=== PATIENT | female | born 1995 | race Caucasian/White ===

== ENCOUNTER 2023-05-25 15:50 | Outpatient (OUT) | payer BC, SELFPAY ==
[2023-05-25 16:24] LABS: Basophils Percent Auto 0.6 % (0.2-2.0); Eosinophils Absolute Auto 0.1 10^3/uL (0.0-0.7); Hematocrit 40.1 % (36.0-48.0); Hemoglobin 13.4 g/dL (12.0-16.0); Immature Granulocytes Abs Auto 0.02 10^3/uL (0.00-0.03); Immature Granulocytes Pct Auto 0.3 % (0.0-0.5); Lymphocytes Absolute Auto 2.1 10^3/uL (1.2-3.8); Lymphocytes Percent Auto 30.1 % (20.5-60.0); Mean Corpuscular HGB Conc 33.4 g/dL (29.9-35.2); Mean Corpuscular Hemoglobin 27.9 pg (26.7-34.0); Mean Corpuscular Volume 83.4 fL (81.0-99.0); Mean Platelet Volume 9.3 fL (9.5-13.5); Monocytes Absolute Auto 0.4 10^3/uL (0.3-0.8); Monocytes Percent Auto 5.8 % (1.7-12.0); Neutrophils Absolute Auto 4.4 10^3/uL (1.4-6.5); Neutrophils Percent Auto 62.2 % (43.0-75.0); Platelet Count 306 10^3/uL (150-450); Red Blood Count 4.81 10^6/uL (4.20-5.40); White Blood Count 7.1 10^3/uL (4.0-11.0)
[2023-05-25 16:37] LABS: Estimated Average Glucose 100 mg/dL; Glycohemoglobin A1C 5.1 % (4.5-6.2)
[2023-05-25 16:51] LABS: Free T4 0.92 ng/dL (0.76-1.46)
[2023-05-25 16:55] LABS: HCG Quantitative <1 mIU/mL; Thyroid Stimulating Hormone 1.383 uIU/mL (0.358-3.740)
[2023-05-27 08:11] LABS: Luteinizing Hormone(LH) 9.7 mIU/mL (.)
[2023-05-27 09:09] LABS: FSH 7.1 mIU/mL (.)
[2023-05-30 02:08] LABS: DHEA, Serum 358 ng/dL (31-701)
== END 2023-05-25 15:51 | disposition home or self-care (01) ==
LOC: LAB 15:55
PROVIDERS: Visit Provider Obstetrics & Gynecology
DX: E28.2 Polycystic ovarian syndrome (principal); Z12.4 Encounter for screening for malignant neoplasm of cervix
CPT/HCPCS: 36415; 82626; 82627; 83001; 83002; 83036; 84439; 84443; 84702; 85025; G0145

== ENCOUNTER 2023-05-25 19:39 | Outpatient (REF) | payer BC, SELFPAY ==
[2023-05-30 12:14] LABS: Age Gdln ACOG Testing Note (.); IGP, rfx Aptima HPV ASCU Note (.)
== END 2023-05-25 19:40 | disposition home or self-care (01) ==
LOC: LAB 19:39
PROVIDERS: Visit Provider Obstetrics & Gynecology
DX: Z12.4 Encounter for screening for malignant neoplasm of cervix (principal)
CPT/HCPCS: G0145

== ENCOUNTER 2023-06-14 09:17 | Outpatient (OUT) | payer BC, SELFPAY ==
[2023-06-14 10:37] LABS: HCG Quantitative 2 mIU/mL
== END 2023-06-14 09:18 | disposition home or self-care (01) ==
LOC: LAB 09:19
PROVIDERS: Visit Provider Obstetrics & Gynecology
DX: O03.9 Complete or unspecified spontaneous abortion without complication (principal); Z51.89 Encounter for other specified aftercare
CPT/HCPCS: 36415; 84702

== ENCOUNTER 2023-11-29 16:43 | Outpatient (OUT) | payer BC, SELFPAY ==
[2023-11-29 17:44] LABS: HCG Quantitative <1 mIU/mL
== END 2023-11-29 16:44 | disposition home or self-care (01) ==
LOC: LAB 16:45
PROVIDERS: Visit Provider Obstetrics & Gynecology
DX: O03.9 Complete or unspecified spontaneous abortion without complication (principal); Z51.89 Encounter for other specified aftercare
CPT/HCPCS: 36415; 84702

== ENCOUNTER 2023-12-15 12:17 | Outpatient (RCR) | payer BC, SELFPAY ==
[2023-12-15 13:27] LABS: HCG Quantitative 110 mIU/mL
[2023-12-17 10:47] LABS: HCG Quantitative 257 mIU/mL
[2023-12-19 14:50] LABS: HCG Quantitative 768 mIU/mL
== END 2023-12-25 23:59 | disposition home or self-care (01) ==
LOC: LAB 12:17
PROVIDERS: Visit Provider Obstetrics & Gynecology
DX: N92.6 Irregular menstruation, unspecified (principal)
CPT/HCPCS: 36415; 84702

== ENCOUNTER 2024-01-20 08:24 | Outpatient (OUT) | payer BC, SELFPAY ==
--- NOTE | 2024-01-20 | US_ITS ---
The [address] [address] Patient Name: SNOW QUEZADA MRN: [id number] date: 1995 Sex: F Assigned Patient Location: [facility] Current Patient Location: [facility] Accession/Order Number: [id number] Exam Date: 01/20/2024 08:27 Report Date: 01/20/2024 10:17 At the request of: ETIENNE VAUGHN Procedure: US OB transvaginal EXAMINATION: US OB transvaginal HISTORY: MISSED MENSES COMPARISON: No relevant comparison available. FINDINGS: GESTATIONAL SAC: Present and normal appearing. YOLK SAC: Present and normal appearing. POLE: Present and normal appearing. CARDIAC: Present. UTERUS: Normal size and appearance. OVARIES: Right: Normal. Left: Corpus lutein cyst. CERVIX: 4.0 cm in length and closed. CUL-DE-SAC: Normal. OTHER: None. AGE BY LMP: 7 weeks 6 days [place] BY LMP: 09/01/2024 AGE BY US CRL: 8 weeks 6 days [place] BY US CRL: 08/25/2024 US/US OB transvaginal IMPRESSION: 1. Single live intrauterine with growth detailed above. Electronically authenticated by: JAVON GABRIEL Date: 01/20/2024 10:17
--- OUTSIDE RECORDS SUMMARY | 2024-01-20 08:27 | XMS_ITS | CCD ---
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 common during early . ? Be sure to tell your health care provider about any vaginal bleeding right away. ? Try to understand when bleeding occurs. Does bleeding occur on its own, or does it occur after something is done, such as sex or pelvic exams? ? Keep all follow-up visits. This is important. This information is not intended to replace advice given to you by your health care provider. Make sure you discuss any questions you have with your health care provider. Document Revised: 03/05/2021 Document Reviewed: 03/05/2021 PushToTest Patient Education ? [address]In[address] [facility] ED Patient Summaryon 023 ED Patient Summary [place] [id number] Patient Discharge Instructions Person Information Name: SNOW QUEZADA Age: 27 Years Arrival Date: 06/09/2023 16:54:49 Discharge Diagnosis: Threatened miscarriage in early Primary Care Physician: MARCOS, GENERIC Provider Information Primary Provider: Fransisco Paulino DO Advanced Road Machinery Inspector:Jasmina Martinez PA-C The exam and treatment you received in the Emergency Department were for an urgent problem and are not intended as complete care. It is important that you follow up with a doctor, nurse practitioner, or physician?s dental assistant medical assistant for ongoing care. If your symptoms become worse or you do not improve as expected and you are unable to reach your usual health care provider, you should return to the Emergency Department. We are available 24 hours a day. SNOW QUEZADA has been given the following list of patient education materials, prescriptions and follow-up instructions: Follow-up Instructions: With: Address: When: Etienne VAUGHN [facility], [address] [place] [address] [place] [address] Business (1) In 3 days 06/12/2023 In the event that this physician does not participate in your insurance network, please consult with your insurance company to find a nearby participating provider. Patient Education Materials: Vaginal Bleeding During , First Trimester A MESSAGE TO ALL PATIENTS REGARDING OPIOIDS PRESCRIPTION OPIOIDS: WHAT YOU NEED TO KNOW Prescription opioids can be used to help relieve iizsihki-wu-ckoxai pain and are often prescribed following a surgery or injury, or for certain health conditions. These medications can be an important part of the treatment but also come with serious risks. It is important to work with your healthcare provider to make sure you are getting the safest, most effective care. WHAT ARE THE RISKS AND SIDE EFFECTS OF OPIOID USE? Prescription opioids carry serious risks of addiction and overdose, especially with prolonged use. An opioid overdose, often marked by slowed breathing, can cause sudden . The use of prescription opioids can have a number of side effects as well, even when taken as directed: ? Tolerance?meaning you might need to take more of the medication for the same pain relief ? Physical dependence?meaning you have symptoms of withdrawal when a medication is stopped ? Increased sensitivity to pain ? Constipation ? Nausea, vomiting, and dry mouth ? Sleepiness and dizziness ? Confusion ? Depression ? Low levels of testosterone that can result in lower sex drive, energy, and strength ? Itching and sweating RISKS ARE GREATER WITH: ? History of drug misuse, substance use disorder, or overdose ? Mental health conditions (such as depression or anxiety) ? Sleep apnea ? Older age (65 years and older) ? Avoid alcohol while taking prescription opioids. Also, unless specifically advised by your health care provider, medications to avoid include: ? Benzodiazepines (such as Xanax or Valium) ? Muscle relaxants (such as Soma or Flexeril) ? Hypnotics (such as Ambien or Lunesta) ? Other prescription opioids KNOW YOUR OPTIONS Talk to your health care provider about ways to manage your pain that don?t involve prescription opioids. Some of these options may actually work better and have fewer risks and side effects. Options may include: ? Pain relievers such as acetaminophen, ibuprofen, and naproxen ? Some medication that are also used for depression or seizures ? Physical therapy and exercise ? Cognitive behavioral therapy, a psychological, goal-directed approach, in which patients learn how to modify physical, behavioral, and emotional triggers of pain and stress. IF YOU ARE PRESCRIBED OPIOIDS FOR PAIN: ? Never take opioids in greater amounts or more often than prescribed. ? Follow up with your primary health care provider. o Work together to create a plan on how to manage your pain. o Talk about ways to help manage your pain that don?t involve prescription opioids. o Talk about any and all concerns and side effects. ? Help prevent misuse and abuse o Never sell or share prescription opioids. o Never use another person?s prescription opioids. ? Store prescription opioids in a secure place and out of reach of others (this may include visitors, children, friends, and family). ? Safely dispose of unused prescription opioids: Find your community drug take-back program or your pharmacy mail-back program, or flush them down the toilet, following guidance from the Food and Drug Administration (www.fda.gov/Drugs/ ResourcesForYou). ? Visit www.cdc.gov/drugove rdose to learn about the risks of opioids abuse and overdose. ? If you believe you may be struggling with addiction, tell your health urgent care and ask for guidance (more content not included)... Normal [facility] U BetaHcg Qualon 06-09-2023 HCG.beta subunit (U) [Moles/Vol] Positive Normal [facility] Comment on above: Performed By: #### 1 [id number], [id number] #### [facility] [address] [place] [address] UA With Cult Reflexon 2022 Bacteria LM Ql (Urine sed) TRACE Normal Trace [facility] Comment on above: Performed By: #### 1 [id number], [id number] #### [facility] [address] [place] [address] Bilirubin Ql (U) Negative Normal Negative [facility] Comment on above: Performed By: #### 1 [id number], [id number] #### [facility] [address] [place] [address] Calcium oxalate crystals LM Ql (Urine sed) Present Normal [facility] Comment on above: Performed By: #### 1 [id number], [id number] #### [facility] [address] [place] [address] Clarity (U) CLEAR Normal Clear [facility] Comment on above: Performed By: #### 1 [id number], [id number] #### [facility] [address] [place] [address] Color (U) YELLOW Normal Yellow [facility] Comment on above: Performed By: #### 1 [id number], [id number] #### [facility] [address] [place] [address] Crystals LM Ql (Urine sed) Present Normal [facility] Comment on above: Performed By: #### 1 [id number], [id number] #### [facility] [address] [place] [address] Epithelial cells.squamous LM.HPF (Urine sed) [#/Area] 3-4 Normal 0-[address] [facility] Comment on above: Performed By: #### 1 [id number], [id number] #### [facility] [address] [place] [address] Glucose Test strip (U) [Mass/Vol] Negative Normal Negative [facility] Comment on above: Performed By: #### 1 [id number], [id number] #### [facility] [address] [place] [address] Hemoglobin Ql (U) 2+ Abnormal Negative [facility] Comment on above: Performed By: #### 1 [id number], [id number] #### [facility] [address] [place] [address] Ketones (U) [Mass/Vol] TRACE Abnormal Negative [facility] Comment on above: Performed By: #### 1 [id number], [id number] #### [facility] [address] [place] [address] Stigler.plasma/Lith ium.RBC (Bld) [Mass ratio] 0-3 Normal 0-[address] [facility] Comment on above: Performed By: #### 1 [id number], [id number] #### [facility] [address] [place] [address] Mucus Ql (Urine sed) 2+ Normal [facility] Comment on above: Performed By: #### 1 [id number], [id number] #### [facility] [address] [place] [address] Nitrite Ql (U) Negative Normal Negative [facility] Comment on above: Performed By: #### 1 [id number], [id number] #### [facility] [address] [place] [address] pH (U) 6.0 [pH] Invalid Interpretation Code 5.0-9.[address] [facility] Comment on above: Performed By: #### 1 [id number], [id number] #### [facility] [address] [place] [address] Protein (U) [Mass/Vol] Negative Normal Negative [facility] Comment on above: Performed By: #### 1 [id number], [id number] #### [facility] [address] [place] [address] Specific gravity (U) [Rel density] >=1.030 Invalid Interpretation Code 1.005-1.[address] [facility] Comment on above: Performed By: #### 1 [id number], [id number] #### [facility] [address] [place] [address] Type of Urine collection method Clean Catch Normal [facility] Comment on above: Performed By: #### 1 [id number], [id number] #### [facility] [address] [place] [address] Urobilinogen Qn (U) 0.2 {Gene'U}/dL Normal 0.0-1.[address] [facility] Comment on above: Performed By: #### 1 [id number], [id number] #### [facility] [address] [place] [address] WBC Auto Ql (U) Negative Normal Negative [facility] Comment on above: Performed By: #### 1 [id number], [id number] #### [facility] [address] [place] [address] WBC LM.HPF (Urine sed) [#/Area] 0-5 Normal 0-[address] [facility] Comment on above: Performed By: #### 1 [id number], [id number] #### [facility] [address] [place] [address] eGFRon 06-09-2023 GFR/1.73 sq M.predicted among non-blacks MDRD (S/P/Bld) [Vol rate/Area] mL/min/{1.73_m2} Normal >=[address] [facility] Comment on above: Order Comment: Order added by Discern Expert. Performed By: #### 1 [id number], [id number], [id number], [id number] #### [facility] [address] [place] [address] XR ankle RT min 3V*on 2021 XR ankle RT min 3V* [facility] [place] [address] XRay Report Signed Patient: Snow Sagastume MR#: [id number] 9 : 1995 Acct:[id number] Age/Sex: 26 / F ADM Date: 01/03/22 Loc: [id number] Room: Type: [facility] Attending Dr: Kraig Haynes PA-C Copies to: Kraig Haynes Ordering Provider: Kraig Haynes Date of Service: 01/03/22 XR/XR ankle RT min 3V*: Injury of right ankle, 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 3views Rightankle COMPARISON:None HISTORY: RIGHT ankle injury No fracture, dislocation or focal soft tissue abnormality seen. XR/XR ankle RT min 3V* IMPRESSION: No acute findings. Impression dictated by: Efraín Gary M.D.01/03/2022 12:18 PM Dictation Location: [place] [address] Transcribed By: [facility] 01/03/22 1218 Dictated By: Efraín Gary DO 01/03/227 Signed By: 01/03/22 1218 Normal [facility] XR ankle RT min 3V* [facility] [employer] Other XR ankle RT min 3V* [facility] [employer] Other XR ankle RT min 3V* 1[address] [facility] [employer] Other XR ankle RT min 3V* [place] [address] [place] [employer] Other XR ankle RT min 3V* XRay Report Nort [facility] Other XR ankle RT min 3V* Signed [facility] Other XR ankle RT min 3V* Patient: Snow Sagastume MR#: [id number] [place] [employer] Other XR ankle RT min 3V* 9 [facility] Other XR ankle RT min 3V* : 1995 Acct:[id number] [facility] Other XR ankle RT min 3V* Age/Sex: 26 / F ADM Date: 01/03/22 [facility] Other XR ankle RT min 3V* Loc: [id number] Room: Type: [facility] Other XR ankle RT min 3V* Attending Dr: Kraig Haynes PA-C [facility] Other XR ankle RT min 3V* Copies to: Kraig Haynes [facility] Other XR ankle RT min 3V* Ordering Provider: Kraig Haynes [facility] Other XR ankle RT min 3V* Date of Service: 01/03/22 [facility] Other XR ankle RT min 3V* XR/XR ankle RT min 3V*: Injury of right ankle, 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 [facility] Other XR ankle RT min 3V* 3views Rightankle [facility] Other XR ankle RT min 3V* COMPARISON:None [facility] Other XR ankle RT min 3V* HISTORY: RIGHT ankle injury [facility] Other XR ankle RT min 3V* No fracture, dislocation or focal soft tissue abnormality seen. [facility] Other XR ankle RT min 3V* XR/XR ankle RT min 3V* [facility] Other XR ankle RT min 3V* IMPRESSION: No acute findings. [facility] Other XR ankle RT min 3V* Impression dictated by: Efraín Gary M.D.01/03/2022 12:18 PM [facility] Other XR ankle RT min 3V* Dictation Location: [place] [address] [facility] Other XR ankle RT min 3V* Transcribed By: PWS 01/03/22 1218 [facility] Other XR ankle RT min 3V* Dictated By: Efraín Gary DO 01/03/22 1217 [facility] Other XR ankle RT min 3V* Signed By: [facility] Other XR ankle RT min 3V* 01/03/22 1218 No rt [facility] Other ED Pat Eduon 10-25-2019 ED Pat Edu [place] [address] Emergency Department Discharge Instructions SNOW SAGASTUME , Please provide this information to your Primary Care/Specialist Name : SNOW SAGASTUME Current Date : 10/24/2019 22:11:44 : 1995 Primary Care Physician : Apolonia Mayer CNP Diagnosis: Follow-Up Instructions: SNOW SAGASTUME has been given these follow-up instructions: FOLLOW-UP APPOINTMENTS: Provider: Specialty: Address: Date: Apolonia Mayer [address] [address] (1) 10 to 14 days Comment: Call for an Appointment Provider: Specialty: Address: Date: Return to Emergency Department Follow-up as needed Comment: For new or concerning symptoms Laboratory Orders: Name: Status: Coronavirus (COVID-19/SARS-CoV- 2) RAPID Completed Radiology Orders: None Ordered Diagnostic Tests: None Ordered Procedure(s) and Patient Education(s) : Work Release 3 Days COVID19 ([id number]); COL COVID19 Caring for Yourself at Home (Suspected or Confirmed) (Custom); COL COVID19 Self Isolation (Custom) EMERGENCY SERVICES MEDICATION LIST Lista de Medicaciones de los Servicios de Emergencia Name SNOW SAGASTUME MRN (COL)-[id number] PLEASE READ THE FOLLOWING REGARDING YOUR MEDICATIONS Based on the information available during your visit we have given you the medication instructions below. Continue taking medications you took prior to your visit unless you have been told to change. Please share this information with your own doctor. Carry a list of your medications with you in case of an emergency. Update it when medications are stopped, doses are changed, or new medications (including nzcu-wym-bbvnnwc products) are added. If you have any questions, check with your doctor. Por la informaci??n disponible mildred modi visita, las instrucciones de medicaci??n aparecen debajo. Favor de continuar tomando las medicaciones Ud. magaly?? antes de modi visita por lo menos que hay cambios. Favor de compartir esta informaci??n con modi medico. Lleva jhonatan lista de medicaciones consigo por dilma de emergenc??a. Actualiza la lista cuando Ud. denver de eve las medicaciones, si cambian las dosis, o si hay nuevas medicaciones a??adidas (incluyendo medicaciones vendidas sin prescripci??n). Favor de preguntar a modi medico por cualquier esteban. THESE ARE THE MEDICATIONS YOU SHOULD BE TAKING No Medications Documented MEDICATIONS GIVEN DURING MEDICAL VISIT None NON-MEDICATION PRESCRIPTION SCHEDULING PHONE NUMBER: MEDICATION CHANGE DETAILS (Not your Final Home Medication List) During the course of your visit, your home medication list was updated with the most current information. The details of those changes are shown below: NEW MEDICATIONS None UPDATED MEDICATIONS None UNCHANGED MEDICATIONS None STOP TAKING THESE MEDICATIONS None DO NOT TAKE UNTIL YOU TALK TO YOUR DOCTOR None [place] [id number] [place], [place] [address] Emergency Department Discharge Instructions Name: SNOW SAGASTUME Current Date: 10/24/2019 22:11:44 : 1995 Primary Physician: Apolonia Mayer CNP We would like to thank you for choosing [facility] for your emergency medical needs. We examined and treated you today on an emergency basis only. This was not a substitute for, or an effort to provide, complete medical care. In most cases, you must let your doctor (or the doctor we referred you to) check you again. Tell your doctor about any new or lasting problems. We cannot recognize and treat all injuries or illnesses in one emergency department visit. After you leave, you should follow the directions attached. Instructions for obtaining X-rays: When following up with your doctor or a bone doctor, you may need to take copies of your x-rays that were done in the Emergency Department. If you didn't receive these upon your discharge from the emergency department, please call . When the final report becomes available and it is reviewed, the emergency department will attempt to contact you if there are any changes in your instructions. It is important that you leave accurate information with us on how to contact you. IF you cannot be contacted, YOU must contact the follow-up doctor that you were assigned to make sure that the final official x-ray report does not require a change in your treatment. Instructions for obtaining medical records: If you need a copy of your medical records for follow-up, please contact the Health Information Management Department at . Their office hours are 8 AM- 4:30 PM, Tuesday through Tuesday. Please note: Results are not immediately available. Please allow a minimum of 48 hours for documentation and results. If you were prescribed an antibiotic: Antibiotics are life-saving drugs and they need to be used properly. Your team might change your antibiotic because test results show that a different antibiotic would be better to treat your infection. Like all medications, antibiotics have side effects. Some can be serious. This includes the risk of getting an antibiotic-resistan t infection later, which may be difficult to treat. Remember to take your antibiotics as prescribed. If you have any questions please talk to your healthcare team. Seatbelts: There is no doubt that seatbelts save lives. Every day, people without seatbelts have more serious injuries. Have everyone buckle up, using age appropriate seatbelts or car seats, to reduce their risk of injury. Smoking: If you do smoke, we encourage you to stop. Smoking affects all aspects of your health and the health of those around you. [facility] offers many resources to help with smoking cessation. Call the [employer] Tobacco Quit Line at 5-505-KCCJNOW ( ). High blood pressure: Your screening blood pressure today was 107 mm Hg / 74 mm Hg. Hypertension (high blood pressure) is blood pressure over 120/80. People with hypertension should contact their primary care provider within 30 days to follow up. Check your patient portal for additional blood pressure information. Immunizations: Immunization is a way to protect against deadly infections. Discuss this with your child's courseware developer, or Public Health Department. Your family practice doctor can determine if you need pneumonia or flu vaccine. The [facility] Department can be reached at . Substance Abuse Program: Concerns with addiction to alcohol, benzodiazepines (Ativan or Xanax) and Opiates (Heroin, Percocet, OxyContin, Methadone or Fentanyl)? [facility] offers an inpatient Substance Abuse Program to help treat the symptoms associated with medical detoxification of addictive substances. The new program offers care for non- adults (18 and older) looking to break the chain to addictive chemicals. The Substance Abuse Program is a voluntary inpatient admission and it starts with a pre-screening phone call to a social worker palliative care. During the call, goals and objectives for recovery and how the patient will transition to outpatient care will be established. Please call [phone] to get help today. Domestic Violence: If you are a victim of domestic violence (physical, verbal, or emotional), you are not alone. Discuss this with your physician or a friend and call the [place] Domestic Violence Hotline or [place] Domestic Violence Hotline for assistance and support. You are the most important factor in your recovery. Follow the provided instructions carefully. Take your medications as prescribed. Most importantly, see a doctor again as discussed. If you have problems that we have not discussed, call or visit your doctor right away. If you do not have a primary care physician, we have provided one for you to follow up with. When you call for an appointment, please inform them that you were seen in the emergency department and the date of your visit. If you are unable to reach your doctor and are still experiencing problems, return to the emergency department. For assistance finding a primary care physician, call the Physician Referral Line at [phone]). Suicide Hotline: Your mental and emotional well-being is important. If you are in a mental health crisis or are having thoughts of suicide, please call the [facility] suicide hotline, anytime day or night, at 8-088-935-FXUQ (4890). Community Chemical Dependency Counselor: You may be contacted by your local fire department for a follow up visit from a community ad trafficker. The community ad trafficker can help with a home safety check; follow up care, and general home care management. Pharmacy Information: Below is a list of 24 hour pharmacies that we are aware of. We suggest that you call the specific pharmacy for their hours before traveling to a location. Hours may vary on holidays. [facility] [place] [address] [place], [place] [phone] [address] [place], [place] [address] [phone] [address] [place], [place] [address] [phone] [address] [place], [place] [phone] [address] [place], [place] [phone] [address] [place], [place] [phone] [place] [phone] Take all medications as directed. If you need prescription assistance, contact the following agencies: ?? Partnership for Prescription Assistance at or www.pparx.org ?? [facility] at or www.HelpAroundbestrx.org ?? www.[employer].com is a site with many valuable coupons Patient Education Materials SNOW SAGASTUME has been given the following patient education materials: [facility] Emergency Department [address] [place] [address] Work Release Form This notice verifies that your employee SNOW SAGASTUME was seen in this facility on 10/24/2019 22:11:44 . Excused from work 3 days It is recommended that you stay home at least 3 days since recovery, noting this is defined as resolution of fever without use of fever reducing medicine AND improvement in respiratory symptoms. At least 7 days should past since your symptoms first appeared. NOTE: If symptoms continue and the employee is unable to perform the full duties of their job by this date, please advise the employee to return to this facility or make an appointment with the referral physician for further evaluation. ED Physician/Provider COVID-19 - Your test is POSITIVE. Please call [facility] coronavirus helpline at with any additional questions for yourself and your employer. If you are sick with COVID-19 or suspect you are infected with the virus that causes COVID-19, follow the steps below to help prevent the disease from spreading to people in your home and community. Stay home except to get medical care You should restrict activities outside your home, except for getting medical care. Do not go to work, school, or public areas. Avoid using public transportation, ride-sharing, or taxis. Separate yourself from other people and animals in your home ?? People: As much as possible, you should stay in a specific room and away from other people in your home. Also, you should use a separate bathroom, if available. ?? Animals: Do not handle pets or other animals while sick Call ahead before visiting your doctor If you have a medical appointment, call the healthcare provider and tell them that you have or may have COVID-19. This will help the healthcare provider's office take steps to keep other people from getting infected or exposed. Wear a facemask ?? You should wear a facemask when you are around other people (e.g., sharing a room or vehicle) or pets and before you enter a healthcare provider's office. ?? If you are not able to wear a facemask (for example, because it causes trouble breathing), then people who live with you should not stay in the same room with you, or they should wear a facemask if they enter your room. Cover your coughs and sneezes Cover your mouth and nose with a tissue when you cough or sneeze. Throw used tissues in a lined trash can; immediately wash your hands with soap and water for at least 20 seconds or clean your hands with an alcohol-based hand crane crew supervisor that contains at least 60% alcohol covering all surfaces of your hands and rubbing them together until they feel dry. Soap and water should be used preferentially if hands are visibly dirty. Avoid sharing personal household items You should not share dishes, drinking glasses, cups, eating utensils, towels, or bedding with other people or pets in your home. After using these items, they should be washed thoroughly with soap and water.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
== END 2024-01-20 08:25 | disposition home or self-care (01) ==
LOC: NOMS 08:24
PROVIDERS: Visit Provider Obstetrics & Gynecology
DX: Z34.91 Encounter for supervision of normal pregnancy, unspecified, first trimester (principal); Z3A.08 8 weeks gestation of pregnancy; N92.6 Irregular menstruation, unspecified
CPT/HCPCS: 76817

== ENCOUNTER 2024-01-28 09:07 | Outpatient (OUT) | payer BC, SELFPAY ==
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
[2024-01-28 11:19] LABS: Basophils Percent Auto 0.4 % (0.2-2.0); Eosinophils Absolute Auto 0.1 10^3/uL (0.0-0.7); Hematocrit 35.9 % (36.0-48.0); Hemoglobin 12.4 g/dL (12.0-16.0); Immature Granulocytes Abs Auto 0.03 10^3/uL (0.00-0.03); Immature Granulocytes Pct Auto 0.4 % (0.0-0.5); Lymphocytes Absolute Auto 1.4 10^3/uL (1.2-3.8); Mean Corpuscular HGB Conc 34.5 g/dL (29.9-35.2); Mean Corpuscular Hemoglobin 28.4 pg (26.7-34.0); Mean Corpuscular Volume 82.3 fL (81.0-99.0); Mean Platelet Volume 9.6 fL (9.5-13.5); Monocytes Absolute Auto 0.4 10^3/uL (0.3-0.8); Monocytes Percent Auto 5.6 % (1.7-12.0); Neutrophils Absolute Auto 5.3 10^3/uL (1.4-6.5); Neutrophils Percent Auto 73.6 % (43.0-75.0); Platelet Count 261 10^3/uL (150-450); Red Blood Count 4.36 10^6/uL (4.20-5.40); Red Cell Distribution Width 12.8 % (11.0-15.0); White Blood Count 7.2 10^3/uL (4.0-11.0)
[2024-01-28 11:30] LABS: Estimated Average Glucose 88 mg/dL; Glycohemoglobin A1C 4.7 % (4.5-6.2)
[2024-01-29 10:07] LABS: Rapid Plasma Reagin, Quant Non Reactive titer (NonRea<1:1); Rubella Antibodies, IgG 1.31 index (Immune >0.99)
[2024-01-29 11:07] LABS: HBsAg Screen Negative (Negative); HCV Ab Non Reactive (Non Reactive); HIV Ab/p24 Ag Screen Non Reactive (Non Reactive)
== END 2024-01-28 09:08 | disposition home or self-care (01) ==
LOC: LAB 09:10
PROVIDERS: Visit Provider Obstetrics & Gynecology
DX: N92.6 Irregular menstruation, unspecified (principal); Z36.0 Encounter for antenatal screening for chromosomal anomalies
CPT/HCPCS: 36415; 83036; 85025; 86592; 86762; 86803; 86850; 86900; 86901; 87086; 87340; 87389

== ENCOUNTER 2024-04-18 13:01 | Outpatient (OUT) | payer BC, SELFPAY ==
--- NOTE | 2024-04-18 13:03 | US_ITS ---
[address] [address] Patient Name: SNOW QUEZADA MRN: [id number] date: 1995 Sex: F Assigned Patient Location: [facility] Current Patient Location: LAB Accession/Order Number: [id number] Exam Date: 04/18/2024 13:03 Report Date: 04/18/2024 16:07 At the request of: LONG GARCIA Procedure: US OB cervical length EXAMINATION: US OB anatomy, US OB cervical length HISTORY: ANATOMY COMPARISON: Ultrasound OB transvaginal 01/20/2024 TECHNIQUE: Transabdominal sonographic examination was performed for obstetrical and evaluation. FINDINGS: Number: 1 Heart Rate: 150 bpm H.B. /min Amniotic Fluid Volume: Subjectively normal Placental Location: POSTERIOR with lower margin 4.4 cm from os. Cervix Length: 4.13 cm , closed. ANATOMY: Normal Structures -cerebellum, choroid plexus, cisterna magna, lateral cerebral ventricles, orbits, midline falx, hard palate, four-chamber heart, RVOT, LVOT, stomach, kidneys, bladder, umbilical cord insertion into abdomen, three-vessel cord, cervical spine, thoracic spine, lumbar spine, sacral spine, right upper extremity, left upper extremity, right lower extremity, left lower extremity. SUBOPTIMALLY SEEN: None ABNORMALITIES: None BIOMETRY: BPD: 4.71 cm; 20 weeks 2 days; 7 % HC: 18.51 cm; 20 weeks 6 days; 13.50 % AC: 17.48 cm; 22 weeks 3 days; 69.80 % FL: 3.69 cm; 21 weeks 5 days; 46.20 % EFW:415.81 g; 62.10 % FL/AC: 21.11 FL/BPD: 78.34 HC/AC: 1.06 GESTATIONAL AGE: Age by EDC: 21 weeks 4 days Age by current US: 21 weeks 2 days CHAPIN by current US: 2024-08-27 CHAPIN by EDC: 2024-08-25 US/US OB cervical length IMPRESSION: 1. Single live intrauterine with growth detailed above. Electronically authenticated by: JAVON GABRIEL Date: 04/18/2024 16:07
--- NOTE | 2024-04-18 13:03 | US_ITS ---
[address] [address] Patient Name: SNOW QUEZADA MRN: [id number] date: 1995 Sex: F Assigned Patient Location: [facility] Current Patient Location: LAB Accession/Order Number: [id number] Exam Date: 04/18/2024 13:04 Report Date: 04/18/2024 16:07 At the request of: LONG GARCIA Procedure: US OB anatomy EXAMINATION: US OB anatomy, US OB cervical length HISTORY: ANATOMY COMPARISON: Ultrasound OB transvaginal 01/20/2024 TECHNIQUE: Transabdominal sonographic examination was performed for obstetrical and evaluation. FINDINGS: Number: 1 Heart Rate: 150 bpm H.B. /min Amniotic Fluid Volume: Subjectively normal Placental Location: POSTERIOR with lower margin 4.4 cm from os. Cervix Length: 4.13 cm , closed. ANATOMY: Normal Structures -cerebellum, choroid plexus, cisterna magna, lateral cerebral ventricles, orbits, midline falx, hard palate, four-chamber heart, RVOT, LVOT, stomach, kidneys, bladder, umbilical cord insertion into abdomen, three-vessel cord, cervical spine, thoracic spine, lumbar spine, sacral spine, right upper extremity, left upper extremity, right lower extremity, left lower extremity. SUBOPTIMALLY SEEN: None ABNORMALITIES: None BIOMETRY: BPD: 4.71 cm; 20 weeks 2 days; 7 % HC: 18.51 cm; 20 weeks 6 days; 13.50 % AC: 17.48 cm; 22 weeks 3 days; 69.80 % FL: 3.69 cm; 21 weeks 5 days; 46.20 % EFW:415.81 g; 62.10 % FL/AC: 21.11 FL/BPD: 78.34 HC/AC: 1.06 GESTATIONAL AGE: Age by EDC: 21 weeks 4 days Age by current US: 21 weeks 2 days CHAPIN by current US: 2024-08-27 CHAPIN by EDC: 2024-08-25 US/US OB anatomy IMPRESSION: 1. Single live intrauterine with growth detailed above. Electronically authenticated by: JAVON GABRIEL Date: 04/18/2024 16:07
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
== END 2024-04-18 13:02 | disposition home or self-care (01) ==
LOC: NOMS 13:01
PROVIDERS: Visit Provider Physician Assistant
DX: Z34.92 Encounter for supervision of normal pregnancy, unspecified, second trimester (principal); Z3A.21 21 weeks gestation of pregnancy; Z36.89 Encounter for other specified antenatal screening
CPT/HCPCS: 36415; 76805; 76817; 82105

== ENCOUNTER 2024-04-18 14:53 | Outpatient (OUT) | payer BC, SELFPAY ==
[2024-04-20 02:08] LABS: AFP Value 155.5 ng/mL (.); Gest. Age on Collection Date 21.6 weeks (.); Gestat. Age Based On Ultrasound (.); Insulin Dep Diabetes No (.); Maternal Age At EDD 27.7 yr (.); OSBR Risk 1 IN 401 (.); Results Report (.)
== END 2024-04-18 14:54 | disposition home or self-care (01) ==
PROVIDERS: Visit Provider Physician Assistant
DX: Z34.92 Encounter for supervision of normal pregnancy, unspecified, second trimester (principal)
CPT/HCPCS: 36415; 82105

== ENCOUNTER 2024-05-19 10:16 | Outpatient (OUT) | payer BC, SELFPAY ==
--- OUTSIDE RECORDS SUMMARY | 2024-05-19 10:19 | XMS_ITS | CCD ---
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 8239371 #### [facility] [address] [place] [address] Sodium [Moles/Vol] 138 mmol/L Normal 135-145 [facility] Comment on above: Performed By: #### 1 6202804, 3494202, 1684048, 2692837 #### [facility] [address] [place] [address] Urea nitrogen [Mass/Vol] 8 mg/dL Normal 5-21 [facility] Comment on above: Performed By: #### 1 6598317, 8137253, 5142477, 7861645 #### [facility] [address] [place] [address] BhCG Quanton 06-09-2023 Beta hCG Qnt 32 mIU/mL High 1-3 [facility] Comment on above: Result Comment: 'F N ON < 1 - 3' ' 0.2 - 1 WEEK = 5 TO 50' ' 1 - 2 WEEKS = 50 - 500' ' 2 - 3 WEEKS = 100 - 5000' ' 3 - 4 WEEKS = 500 - 63781' ' 4 - 5 WEEKS = 1000 - 17624' ' 5 - 6 WEEKS = 87830 - 477065' ' 6 - 8 WEEKS = 15229 - 646782' ' 8 - 12 WEEKS = 49470 - 902798' Performed By: #### 1 4166323, 4413071, 9474546, 5961272 #### [facility] [address] [place] [address] CBC w/ Auto Diffon Erythrocyte distribution width (RBC) [Ratio] 14.0 % Normal 10.9-14.2 [facility] Comment on above: Performed By: #### 1 0756194, 4101999, 5781626, 3522206 #### [facility] [address] [place] [address] Hematocrit (Bld) [Volume fraction] 39.5 % Normal 34.0-46.0 [facility] Comment on above: Performed By: #### 1 2156857, 0414047, 1829140, 5677818 #### [facility] [address] [place] [address] Hemoglobin (Bld) [Mass/Vol] 13.2 g/dL Normal 12.0-16.0 [facility] Comment on above: Performed By: #### 1 9934897, 4919779, 4774736, 8493940 #### [facility] [address] [place] [address] MCH (RBC) [Entitic mass] 27.5 pg Normal 27.0-34.0 [facility] Comment on above: Performed By: #### 1 0185746, 8468776, 7925604, 8237683 #### [facility] [address] [place] [address] MCHC (RBC) [Mass/Vol] 33.5 g/dL Normal 31.4-36.0 [facility] Comment on above: Performed By: #### 1 7155457, 4379845, 4263720, 0818743 #### [facility] [address] [place] [address] MCV (RBC) [Entitic vol] 81.9 fL Normal 80.0-100.0 [facility] Comment on above: Performed By: #### 1 5037779, 5573404, 4466500, 8699974 #### [facility] [address] [place] [address] Platelet mean volume (Bld) [Entitic vol] 7.2 fL Normal 6.4-10.8 [facility] Comment on above: Performed By: #### 1 7324655, 3507216, 9632518, 3468945 #### [facility] [address] [place] [address] Platelets (Bld) [#/Vol] 304.0 E9/L Normal 150.0-500.0 [facility] Comment on above: Performed By: #### 1 9844004, 8462192, 1652539, 4204887 #### [facility] [address] [place] [address] RBC (Bld) [#/Vol] 4.8 E12/L Normal 4.3-5.9 [facility] Comment on above: Performed By: #### 1 3643290, 8408888, 1965536, 1655325 #### [facility] [address] [place] [address] WBC corrected for nucl RBC Auto (Bld) [#/Vol] 7.4 E9/L Normal 4.0-11.0 [facility] Comment on above: Performed By: #### 1 7804786, 3350639, 0813538, 4887606 #### [facility] [address] [place] [address] Consent for Treatmenton 05-27 Consent for Treatment [id number]#1.00TIFF Normal [facility] Discharge Instructionson Discharge Instructions [id number]#1.00TIFF Normal [facility] ED Clinical Summaryon 2022 ED Clinical Summary [address] [address] ED Clinical Summary Person Information Name: SNOW SUTHERLAND/[facility] Age: 27 Years : 1995 Sex: Female Language: Citizen Of [place] PCP: ELIESER RODRÍGUEZ Marital Status: Single Phone: [phone] Visit Id: Visit Reason: Vaginal bleeding - [...] 06/09/2023 21:35:20 06/09/2023 21:35:20 06/09/2023 21:35:20 ADDRESS: [address] [place] [id number] [facility] NOTES: MEDICAL INFORMATION: Prescriptions Given: Medications to [...] Trimester Follow up: With: Address: When: Etienne GONZALES [facility], [address] [place] [address] [place] [address] Business (1) In 3 days 06/12/2023 DIAGNOSIS: Threatened miscarriage in early Normal [facility] ED Note-Physicianon 06-09-20 ED Note-Physician Basic Information Time Seen: Jasmina [...] hours. 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 Patient voices understanding and is agreeable to plan Disposition Plan Patient Discharge Condition improved, stable Discharge Disposition to home Discharge Prescription List Prescriptions No active prescription medications Follow-up With When Contact Information Etienne GONZALES In 3 days 06/12/[address] [place] [address] Business (1) Additional Instructions: Patient Education Vaginal Bleeding During , First Trimester Attestation Patient was treated and evaluated by the Physician Informatica Mdm Architect. The attending physician was in the Emergency [...] 18:32:00) Lymph Auto: 29 % (06/09/23 18:32:00) Sully Auto: 5.9 % (06/09/23 18:32:00) Eos Auto: 1.1 % (06/09/23 18:32:00) Basophil Auto: 0.9 % (06/09/23 18:32:00) Neutro Absolute: 4.7 E9/L (06/09/23 18:32:00) Lymph Absolute: 2.2 E9/L (06/09/23 18:32:00) Sully Absolute: 0.4 E9/L (06/09/23 18:32:00) Eos Absolute: 0.1 E9/L (06/09/23 18:32:00) Basophil Absolute: 0.1 E9/L (06/09/23 18:32:00) Glucose Lvl: 90 mg/dL (06/09/23 18:32:00) BUN: 8 mg/dL ( (more content not included)... Normal [facility] Comment on above: Result Comment: Elec tronically Signed By: Jasmina Martinez PA-C\.br\Date and Time Signed: 06/09/23 21:49 EST\.br\Electronically Co-Signed By: Fransisco Paulino DO\.br\Date and Time Co-Signed: 06/09/23 22:07 EST ED Patient Education Noteon 06-09-2023 ED Patient [...] your regular activities. General instructions ? Take cdlg-cyd-gxulreb and prescription medicines only as told by [...] provider. Document Revised: 03/05/2021 Document Reviewed: 03/05/2021 [employer] Patient Education ? 2022 [employer] [place]. Normal [facility] ED Patient Summaryon 023 ED Patient Summary [place] [address] Patient Discharge Instructions Person Information Name: SNOW SUTHERLAND Age: 27 Years Arrival Date: 06/09/2023 16:54:49 Discharge Diagnosis: Threatened miscarriage in early Primary Care Physician: MARCOS GENERIC Provider Information Primary Provider: Fransisco Paulino DO Advanced Clip On Sunglasses Assembler:Jasmina Martinez PA-C The exam and treatment you received in the Emergency Department were for an urgent problem and are not intended as complete care. It is important that you follow up with a doctor, nurse practitioner, or physician?s assistant professor of psychology for ongoing care. If your symptoms become worse or you do not improve as expected and you are unable to reach your usual health care provider, you should return to the Emergency Department. We are available 24 hours a day. SNOW SUTHERLAND has been given the following list of patient education materials, prescriptions and follow-up instructions: Follow-up Instructions: With: Address: When: Etienne GONZALES [facility], [address] [place] [address] [place] [place] [address] Business (1) In 3 days 06/12/2023 In the event that this physician does not participate in your insurance network, please consult with your insurance company to find a nearby participating provider. Patient Education Materials: Vaginal Bleeding During , First Trimester A MESSAGE TO ALL PATIENTS REGARDING OPIOIDS PRESCRIPTION OPIOIDS: WHAT YOU NEED TO KNOW Prescription opioids can be used to help relieve ovwecwfw-zb-kptpvi pain and are often prescribed following a [...] be struggling with addiction, tell your health career technical supervisor and ask for guidance (more content not included)... Normal [facility] U BetaHcg Qualon 06-09-2023 HCG.beta subunit (U) [Moles/Vol] Positive Normal [facility] Comment on above: Performed By: #### 1 5122709, 32723291 #### [facility] [address] [place] [address] UA With Cult Reflexon 2022 Bacteria LM Ql (Urine sed) TRACE Normal Trace [facility] Comment on above: Performed By: #### 1 8506510, 36656004 #### [facility] [address] [place] [address] Bilirubin Ql (U) Negative Normal Negative [facility] Comment on above: Performed By: #### 1 9246889, 98040425 #### [facility] [address] [place] [address] Calcium oxalate crystals LM Ql (Urine sed) Present Normal [facility] Comment on above: Performed By: #### 1 3928118, 75377780 #### [facility] [address] [place] [address] Clarity (U) CLEAR Normal Clear [facility] Comment on above: Performed By: #### 1 9669096, 47493878 #### [facility] [address] [place] [address] Color (U) YELLOW Normal Yellow [facility] Comment on above: Performed By: #### 1 2416534, 35254830 #### [facility] [address] [place] [address] Crystals LM Ql (Urine sed) Present Normal [facility] Comment on above: Performed By: #### 1 0440563, 29787687 #### [facility] [address] [place] [address] Epithelial cells.squamous LM.HPF (Urine sed) [#/Area] 3-4 Normal 0-2 [facility] Comment on above: Performed By: #### 1 3188779, 72300724 #### [facility] [address] [place] [address] Glucose Test strip (U) [Mass/Vol] Negative Normal Negative [facility] Comment on above: Performed By: #### 1 7280450, 85169295 #### [facility] [address] [place] [address] Hemoglobin Ql (U) 2+ Abnormal Negative [facility] Comment on above: Performed By: #### 1 4528653, 79528876 #### [facility] [address] [place] [address] Ketones (U) [Mass/Vol] TRACE Abnormal Negative [facility] Comment on above: Performed By: #### 1 7651024, 87868415 #### [facility] [address] [place] [address] [place].plasma/Lithiu m.RBC (Bld) [Mass ratio] 0-3 Normal 0-3 [facility] Comment on above: Performed By: #### 1 3054620, 60540113 #### [facility] [address] [place] [address] Mucus Ql (Urine sed) 2+ Normal [facility] Comment on above: Performed By: #### 1 6191741, 47107626 #### [facility] [address] [place] [address] Nitrite Ql (U) Negative Normal Negative [facility] Comment on above: Performed By: #### 1 0233645, 02416326 #### [facility] [address] [place] [address] pH (U) 6.0 [pH] Invalid Interpretation Code 5.0-9.0 [facility] Comment on above: Performed By: #### 1 3103358, 33850884 #### [facility] [address] [place], [place] [address] Protein (U) [Mass/Vol] Negative Normal Negative [facility] Comment on above: Performed By: #### 1 8845610, 89216457 #### [facility] [address] [place] [address] Specific gravity (U) [Rel density] >=1.030 Invalid Interpretation Code 1.005-1.030 [facility] Comment on above: Performed By: #### 1 9843118, 26126289 #### [facility] [address] [place] [address] Type of Urine collection method Clean Catch Normal [facility] Comment on above: Performed By: #### 1 4944209, 44559502 #### [facility] [address] [place] [address] Urobilinogen Qn (U) 0.2 {Gene'U}/dL Normal 0.0-1.0 [facility] Comment on above: Performed By: #### 1 3809769, 55864834 #### [facility] [address] [place] [address] WBC Auto Ql (U) Negative Normal Negative [facility] Comment on above: Performed By: #### 1 9065412, 08730756 #### [facility] [address] [place] [address] WBC LM.HPF (Urine sed) [#/Area] 0-5 Normal 0-5 [facility] Comment on above: Performed By: #### 1 0585209, 32254116 #### [facility] [address] [place] [address] eGFRon 06-09-2023 GFR/1.73 sq M.predicted among non-blacks MDRD (S/P/Bld) [Vol rate/Area] mL/min/{1.73_m2} Normal >=59 [facility] Comment on above: Order Comment: Order added by Discern Expert. Performed By: #### 1 1703724, 9911832, 9222851, 8312356 #### [facility] [address] [place] [address] XR ankle RT min 3V*on 2021 XR ankle RT min 3V* [facility] [place] [address] XRay Report Signed Patient: Snow Sagastume MR#: [id number] 9 : 1995 Acct:[id number] Age/Sex: 26 / F ADM Date: 01/03/22 Loc: [id number] Room: Type: [facility] Attending Dr: Kraig Haynes PA-C Copies [...] Efraín Gary M.D.01/03/2022 12:18 PM Dictation Location: [place] [address] Transcribed By: ROSS 01/03/22 1218 Dictated By: Efraín Gary DO 01/03/22 1217 Signed By: 01/03/22 1218 Normal [facility] XR ankle RT min 3V* [facility] [employer] Other XR ankle RT min 3V* [facility] [employer] Other XR ankle RT min 3V* [address] [place] [address] [employer] Other XR ankle RT min 3V* Juanjose [address] [employer] Other XR ankle RT min 3V* XRay Report [facility] [employer] Other XR ankle RT min 3V* Signed [facility] Other XR ankle RT min 3V* Patient: Snow Sagastume MR#: [id number] [facility] [employer] Other XR ankle RT min 3V* 9 [facility] Other XR ankle RT min 3V* : 1995 Acct:[id number] [facility] Other XR ankle RT min 3V* Age/Sex: 26 / F ADM Date: 01/03/22 [facility] Other XR ankle RT min 3V* Loc: [id number] Room: Type: [facility] Other XR ankle RT min 3V* Attending Dr: Kraig Haynes PA-C [facility] Other XR ankle RT min 3V* Copies to: Kraig Haynes [facility] Other XR ankle RT min 3V* Ordering Provider: Kraig Haynes [facility] Other XR ankle RT min 3V* Date of Service: 01/03/22 [facility] Other XR ankle RT min 3V* XR/XR ankle RT min 3V*: Injury of right ankle, 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 [facility] Other XR ankle RT min 3V* 3views Rightankle [facility] Other XR ankle RT min 3V* COMPARISON:None [facility] Other XR ankle RT min 3V* HISTORY: RIGHT ankle injury [facility] Other XR ankle RT min 3V* No fracture, dislocation or focal soft tissue abnormality seen. [facility] Other XR ankle RT min 3V* XR/XR ankle RT min 3V* [facility] Other XR ankle RT min 3V* IMPRESSION: No acute findings. [facility] Other XR ankle RT min 3V* Impression dictated by: Efraín Gary M.D.01/03/2022 12:18 PM [facility] Other XR ankle RT min 3V* Dictation Location: [place] [address] [facility] Other XR ankle RT min 3V* Transcribed By: PWS 01/03/22 [facility] Other XR ankle RT min 3V* Dictated By: Efraín Gary DO 01/03/22 1217 [facility] Other XR ankle RT min 3V* Signed By: [facility] Other XR ankle RT min 3V* 01/03/22 1218 No [email or web address] Other ED Pat Eduon 10-25-2019 ED Pat [place] [id number] Emergency Department Discharge Instructions SNOW SAGASTUME , Please provide this information to your Primary Care/Specialist Name : SONW SAGASTUME Current Date : 10/24/2019 22:11:44 : 1995 Primary Care Physician : Apolonia Mayer CNP Diagnosis: Follow-Up Instructions: SNOW SAGASTUME has been given these follow-up instructions: FOLLOW-UP APPOINTMENTS: Provider: Specialty: Address: Date: Apolonia Mayer CNP [address] [phone] (1) 10 to 14 days Comment: Call for an Appointment Provider: Specialty: Address: Date: Return to Emergency Department Follow-up as needed Comment: For new or concerning symptoms Laboratory Orders: Name: Status: Coronavirus (COVID-19/SARS-CoV- 2) RAPID Completed Radiology Orders: None Ordered Diagnostic Tests: None Ordered Procedure(s) and Patient Education(s) : Work Release 3 Days COVID19 ([id number]); COL COVID19 Caring for Yourself at Home (Suspected or Confirmed) (Custom); COL COVID19 Self Isolation (Custom) EMERGENCY SERVICES MEDICATION LIST Lista de Medicaciones de los Servicios de Emergencia Name SNOW SAGASTUME MRN (COL)-[id number] PLEASE READ THE FOLLOWING REGARDING YOUR MEDICATIONS [...] doses are changed, or new medications (including qixo-zuj-qxhevbj products) are added. If you have any [...] UNTIL YOU TALK TO YOUR DOCTOR None [address] [address] Emergency Department Discharge Instructions Name: SNOW SAGASTUME Current Date: 10/24/2019 22:11:44 : 1995 Primary Physician: Apolonia Mayer CNP We would like to thank you for choosing [facility] for your emergency medical needs. We [...] and the health of those around you. [facility] offers many resources to help with smoking cessation. Call the [place] Tobacco Quit Line at 9-227-XPGINOW ( ). High blood pressure: Your screening [...] deadly infections. Discuss this with your child's gas line installer, or Public Health Department. Your family practice doctor can determine if you need pneumonia or flu vaccine. [facility] Department can be reached at . Substance Abuse Program: Concerns with addiction to alcohol, benzodiazepines (Ativan or Xanax) and Opiates (Heroin, Percocet, OxyContin, Methadone or Fentanyl)? [facility] offers an inpatient Substance Abuse Program to help treat the symptoms associated with medical detoxification of addictive substances. The new program offers care for non- adults (18 and older) looking to break the chain to addictive chemicals. The Substance Abuse Program is a voluntary inpatient admission and it starts with a pre-screening phone call to a social sciences department chair. During the call, goals and objectives for recovery and how the patient will transition to outpatient care will be established. Please call [phone] to get help today. Domestic Violence: If you are a victim of domestic violence (physical, verbal, or emotional), you are not alone. Discuss this with your physician or a friend and call the [place] Domestic Violence Hotline or [place] Domestic Violence Hotline for assistance and support. [...] physician, call the Physician Referral Line at (321) 119-NXUY (9069). Suicide Hotline: Your mental and emotional well-being is important. If you are in a mental health crisis or are having thoughts of suicide, please call the [facility] suicide hotline, anytime day or night, at 9-078-838-RDMT (1056). Community Summons Server: You may be contacted by your local fire department for a follow up visit from a community acute care nursing assistant. The community acute care nursing assistant can help with a home safety check; follow up care, and general home care management. Pharmacy Information: Below is a list of 24 hour pharmacies that we are aware of. We suggest that you call the specific pharmacy for their hours before traveling to a location. Hours may vary on holidays. [facility] Pharmacy [place] [id number] [place], [place] [phone] [address] [place], [place] [address] [phone] [address] [place], [place] [address] [phone] [address] [place], [place] [phone] [address] [place], [place] [phone] [address] [place], [place] [phone] [place] [address] [phone] Take all medications as directed. If you need prescription assistance, contact the following agencies: ?? Partnership for Prescription Assistance at or www.pparx.org ?? [facility] Best Rx at or www.BoardVitalsstrx.org ?? www.MeddikRx.Teachable is a site with many valuable coupons Patient Education Materials SNOW SAGASTUME has been given the following patient education materials: [facility] Emergency Department [address] [place] [address] Work Release Form This notice verifies that [...] - Your test is POSITIVE. Please call [facility] coronavirus helpline at with any [...] clean your hands with an alcohol-based hand manufacturing maintenance technician that contains at least 60% alcohol covering [...] clean your hands with an alcohol-based hand manufacturing maintenance technician that contains at least 60% alcohol, covering [...] isolation precautions should be made on a ugzp-gd-dgdj basis, in consultation with healthcare providers and state and local health departments. For additional information, use the link or scan the QR code below: https://www.cdc.gov /coronavirus/2019-n cov/wr-nyf-jtg-sick /gndvq-emwu-lhcu.ht ml?CDC_AA_refVal=ht tps%3A%2F%2Fwww.cdc .gov%2Fcoronavirus% 7Q5581-uvis%2Fabout %6Dwgote-kaal-biwa. html COVID-19 Self Isolation How to self-isolate [...] your room every day with a household washroom cleaner or disinfectant. Don't ?? Do not go to work, school, church services or public areas. ?? Do not [...] should be collected and put in a fountain pen nibs inspector and hands washed properly afterwards. ?? If you don't have a fountain pen nibs inspector: wash in hot soapy water, wearing rubber [...] Many cleaning and disinfectant products sold in [employer] can kill coronavirus on surfaces. ?? Clean [...] _ Date _ Time Provider Signature Normal [facility] Coronavirus (COVID-19/SARS-C oV-2) RAPIDon 10-24-2019 SARS-CoV-2 DETECTED Critically abnormal NOTDET [facility] Comment on above: Result Comment: Crit ical value(s) on tests RAPCOVID called to and read-back by [id number] , at location ONUR by [id number] time called 10/24/19 21:35 This test was performed via the [employer] ID NOW COVID-19 assay and has been authorized by FDA under an Emergency Use Authorization (EUA). The assay is validated for nasopharyngeal (LOADER MAGAZINE GRINDER), nasal, and oropharyngeal (OP) direct swabs. The [...] Control website: www.cdc.gov/coronavirus. Performed By: #### C D:[id number] #### [place], [address] [place] [address] XR CHEST PA/APon 09-23-2019 XR CHEST PA/AP [...] on TueSep 23, 2019 9:12:53 PM EDT [facility] Comment on above: Order Comment: Injur y/Trauma or Illness?:Illness/Other How long have you had these symptoms (acute/chronic)?:Acute Reason for exam?:cough, shortness of breath History of cancer?: Surgeries, chemotherapy, or radiation?: Type of Exam?:Initial Additional signs and symptoms?: XR Chest 1 Viewon 09-23-2019 No evidence of acute cardiopulmonary disease. Workstation ID: [id number] [facility] EXAMINATION: ONE XRAY VIEW OF THE [...] No evidence of pneumothorax or pleural effusion. [facility], Rad In Ninai Speechq - 09/23/2019 9:15 PM EDT EXAMINATION: [...] of acute cardiopulmonary disease. Workstation ID: [id number] [facility] Vital Signs Date Time Vital Sign Value Performing Clinician Facility 05-16-2024 14:34-0500 Body mass index (BMI) [Ratio] 31.77 kg/m2 Falguni Garcia PA Work Phone: [facility] 05-16-2024 14:34-0500 Body weight 76.26 kg Falguni Garcia PA Work Phone: [facility] 05-16-2024 14:34-0500 Diastolic blood pressure 74 mm[Hg] Falguni Garcia PA Work Phone: [facility] 05-16-2024 14:34-0500 Systolic blood pressure 120 mm[Hg] Falguni Garcia PA Work Phone: [facility] 05-04-2024 20:23-0500 Hourly Rounding Amandeep Ina [facility] Comment on above: Result Comment: pt ambulates off unit w/ steady gait 05-04-2024 20:18-0500 Hourly Rounding Amandeep Ina [facility] Comment on above: Result Comment: discharge instructions g one over w/ pt at this time. pt verbalizes understanding of all education given and all questions answered by this nurse. 05-04-2024 19:03-0500 Blood Pressure Location Amandeep Buckley [facility] 05-04-2024 19:03-0500 Body temperature 98.24 [degF] Amandeep Buckley [facility] 05-04-2024 19:03-0500 Diastolic blood pressure 71 mm[Hg] Amandeep Buckley [facility] 05-04-2024 19:03-0500 Heart rate 98 /min Amandeep Buckley [facility] 05-04-2024 19:03-0500 Mean blood pressure 88 mm[Hg] Amandeep Buckley [facility] 05-04-2024 19:03-0500 Respiratory rate 18 /min Amandeep Buckley [facility] 05-04-2024 19:03-0500 Systolic blood pressure 121 mm[Hg] Amandeep Buckley [facility] 05-04-2024 18:48-0500 Hourly Rounding Amandeep Buckley [facility] Comment on above: Result Comment: arrived to room 401 ambu latory, changing to gown, nurse requested urine specimen. 04-18-2024 14:02-0400 Body mass index (BMI) [Ratio] 30.23 kg/m2 [employer] ([employer]) Work Phone: [facility] [employer] 04-18-2024 14:02-0400 Body weight 72.58 kg Etienne Janet DO Work Phone: [facility] 04-18-2024 14:02-0400 Diastolic blood pressure 68 mm[Hg] [employer] (PV[employer]) Work Phone: [facility] 04-18-2024 14:02-0400 Systolic blood pressure 114 mm[Hg] [employer] ([employer] Work Phone: [facility] [employer] 01-03-2022 13:00-0400 Body height 154.94 cm Kraig Haynes Other [facility] Other 01-03-2022 13:00-0400 Body mass index (BMI) [Ratio] 26.45 kg/m2 Kraig Haynes Other [facility] Other 01-03-2022 13:00-0400 Body temperature 97.9 [degF] Kraig Haynes Other [facility] Other 01-03-2022 13:00-0400 Body weight 63.5 kg Kraig Haynes Other [facility] Other 01-03-2022 13:00-0400 Respiratory rate 18 /min Kraig Haynes Other [facility] Other 01-03-2022 13:00-0400 SaO2% (BldA) [Mass fraction] 98 % Kraig Haynes Other [facility] Other 09-23-2019 20:17-0400 BMI (Body Mass Index) 24.69 kg/m2 [facility] 09-23-2019 20:17-0400 Body Temperature 97.9 [degF] [facility] 09-23-2019 20:17-0400 Body weight 61.24 kg [facility] 09-23-2019 20:17-0400 BP Diastolic 89 mm[Hg] [facility] 09-23-2019 20:17-0400 BP Systolic 130 mm[Hg] [facility] 09-23-2019 20:17-0400 Height 157.5 cm [facility] 09-23-2019 20:17-0400 Pulse (Heart Rate) 84 /min [facility] 09-23-2019 20:17-0400 Pulse Oximetry 100 % [facility] 09-23-2019 20:17-0400 Respiratory Rate 18 /min [facility] 04-25-2019 20:09-0400 BMI (Body Mass Index) 26.45 kg/m2 [facility] 04-25-2019 20:09-0400 Body Temperature 97.7 [degF] [facility] 04-25-2019 20:09-0400 Body weight 63.5 kg [facility] 04-25-2019 20:09-0400 BP Diastolic 86 mm[Hg] [facility] 04-25-2019 20:09-0400 BP Systolic 122 mm[Hg] [facility] 04-25-2019 20:09-0400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
[2024-05-19 11:32] LABS: Basophils Percent Auto 0.2 % (0.2-2.0); Eosinophils Absolute Auto 0.1 10^3/uL (0.0-0.7); Eosinophils Percent Auto 0.8 % (0.9-7.0); Hematocrit 30.1 % (36.0-48.0); Hemoglobin 9.9 g/dL (12.0-16.0); Immature Granulocytes Abs Auto 0.07 10^3/uL (0.00-0.03); Immature Granulocytes Pct Auto 0.7 % (0.0-0.5); Lymphocytes Absolute Auto 1.4 10^3/uL (1.2-3.8); Lymphocytes Percent Auto 15.1 % (20.5-60.0); Mean Corpuscular HGB Conc 32.9 g/dL (29.9-35.2); Mean Corpuscular Hemoglobin 27.7 pg (26.7-34.0); Mean Corpuscular Volume 84.3 fL (81.0-99.0); Mean Platelet Volume 9.2 fL (9.5-13.5); Monocytes Absolute Auto 0.5 10^3/uL (0.3-0.8); Neutrophils Absolute Auto 7.5 10^3/uL (1.4-6.5); Neutrophils Percent Auto 78.2 % (43.0-75.0); Platelet Count 221 10^3/uL (150-450); Red Blood Count 3.57 10^6/uL (4.20-5.40); Red Cell Distribution Width 13.1 % (11.0-15.0); White Blood Count 9.6 10^3/uL (4.0-11.0)
[2024-05-19 11:44] LABS: Glucose 1 Hour 148 mg/dL (<130)
== END 2024-05-19 10:17 | disposition home or self-care (01) ==
LOC: LAB 10:17
PROVIDERS: Visit Provider Physician Assistant
DX: Z13.1 Encounter for screening for diabetes mellitus (principal)
CPT/HCPCS: 36415; 82950; 85025

== ENCOUNTER 2024-05-25 08:55 | Outpatient (OUT) | payer BC, SELFPAY ==
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
[2024-05-25 11:09] LABS: Glucose Fasting 90 mg/dL (<95)
[2024-05-25 11:31] LABS: Glucose 2 Hour 145 mg/dL (<155)
[2024-05-25 11:36] LABS: Glucose 1 Hour 143 mg/dL (<180)
[2024-05-25 12:45] LABS: Glucose 3 Hour 119 mg/dL (<140)
== END 2024-05-25 08:56 | disposition home or self-care (01) ==
LOC: LAB 08:56
PROVIDERS: Visit Provider Physician Assistant
DX: R73.09 Other abnormal glucose (principal)
CPT/HCPCS: 36415; 82951; 82952

== ENCOUNTER 2024-07-11 13:51 | Observation (INO) | payer BC, SELFPAY ==
--- NOTE | 2024-07-11 14:27 | US_ITS ---
[address] [address] Patient Name: SNOW QUEZADA MRN: [id number] date: 1995 Sex: F Assigned Patient Location: [facility] Current Patient Location: [facility] Accession/Order Number: [id number] Exam Date: 07/11/2024 14:30 Report Date: 07/11/2024 15:14 At the request of: ETIENNE VAUGHN Procedure: US OB BPP w non-stress OB ultrasound for biophysical profile, 07/11/2024 2:30 PM EST COMPARISON: OB ultrasound, 04/18/2024 CLINICAL HISTORY: decreased movement Biophysical profile is scored: breathing score 2 out of 2. tone score 2 out of 2. movements score 2 out of 2. Qualitative amniotic fluid amount score 2 out of 2. reactivity was not performed or the results are not known at time of examination. This gives a total of 8 out of 8. The position is cephalic. The heart rate is 144 beats per minute. Amniotic fluid index is 19.5 cm. US/US OB BPP w non-stress IMPRESSION: 1. A score of 8 of 8 is noted. 2. The heart rate is 144 beats per minute. 3. The position is cephalic. Amniotic fluid index 19.5 cm. Electronically authenticated by: Jean-Pierre ZELAYA Date: 07/11/2024 15:14
[2024-07-11 14:33] VITALS: BP 116/83; PULSE 100
== END 2024-07-11 15:00 | disposition home or self-care (01) ==
LOC: FBC 13:54
PROVIDERS: Admitting Provider Obstetrics & Gynecology; Visit Provider Obstetrics & Gynecology
DX: O36.8190 Decreased fetal movements, unspecified trimester, not applicable or unspecified (principal); Z3A.00 Weeks of gestation of pregnancy not specified
CPT/HCPCS: 59025; 76818; G0378; G0379

== ENCOUNTER 2024-08-01 19:51 | Outpatient (REF) | payer BC, SELFPAY ==
--- OUTSIDE RECORDS SUMMARY | 2024-08-01 19:56 | XMS_ITS | CCD ---
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 #### 1 [id number], 2098141, 6689880, 2289154 #### [facility] [address] [place] [address] 52896 Eosinophils/100 WBC (Bld) 1.1 % Normal 0.0-8.0 [facility] Comment on above: Order Comment: Order Added by Discern Expert. Performed By: #### 1 1850719, 6242600, 6009364, 1674600 #### [facility] [address] [place] [address] 29498 Eosinophils/Leukocyte s Auto (Bld) [Pure # fraction] 0.1 E9/L Normal 0.0-0.5 [facility] Comment on above: Order Comment: Order Added by Vincent Expert. Performed By: #### 1 2932626, 2679450, 0525871, 2391028 #### [facility] [address] [place] [address] 42551 Lymphocytes/100 WBC (Bld) 29.0 % Normal 14.0-50.0 [facility] Comment on above: Order Comment: Order Added by Discern Expert. Performed By: #### 1 6002490, 7338290, 0468672, 5709700 #### [facility] [address] [place] [address] 64599 Lymphocytes/Leukocyte s Auto (Bld) [Pure # fraction] 2.2 E9/L Normal 1.0-4.0 [facility] Comment on above: Order Comment: Order Added by Discern Expert. Performed By: #### 1 4832308, 4160318, 1228574, 2146370 #### [facility] [address] [place] [address] 28294 Monocytes/100 WBC (Bld) 5.9 % Normal 4.0-14.0 [facility] Comment on above: Order Comment: Order Added by Discern Expert. Performed By: #### 1 5599679, 9897360, 0027248, 2044418 #### [facility] [address] [place] [address] 69026 Monocytes/Leukocytes Auto (Bld) [Pure # fraction] 0.4 E9/L Normal 0.2-1.0 [facility] Comment on above: Order Comment: Order Added by Discern Expert. Performed By: #### 1 9577213, 6905521, 7936928, 0603386 #### [facility] [address] [place] [address] 26142 Neutrophils/100 WBC (Bld) 63.1 % Normal 36.0-75.0 [facility] Comment on above: Order Comment: Order Added by Discern Expert. Performed By: #### 1 2091861, 6468962, 7412848, 0789979 #### [facility] [address] [place] [address] 01226 Neutrophils/Leukocyte s Auto (Bld) [Pure # fraction] 4.7 E9/L Normal 2.0-7.5 [facility] Comment on above: Order Comment: Order Added by Discern Expert. Performed By: #### 1 5440676, 6932035, 4979589, 7923029 #### [facility] [address] [place] [address] 52779 BMPon 06-09-2023 Anion gap [Moles/Vol] 11 mmol/L Normal 6-16 [facility] Comment on above: Performed By: #### 1 1246865, 3195560, 0401534, 9243964 #### [facility] [address] [place] [address] 11837 BUN/Creat Ratio 13 No Units Normal 10-20 [facility] Comment on above: Performed By: #### 1 2054814, 6981860, 8689749, 8017622 #### [facility] [address] [place] [address] Calcium [Mass/Vol] 9.4 mg/dL Normal 8.9-11.1 [facility] Comment on above: Performed By: #### 1 0218107, 5943218, 1094485, 2548811 #### [facility] [address] [place] [address] Chloride [Moles/Vol] 104 mmol/L Normal 101-111 [facility] Comment on above: Performed By: #### 1 3728663, 4807270, 9002243, 7767666 #### [facility] [address] [place] [address] CO2 [Moles/Vol] 27 mmol/L Normal 21-31 [facility] Comment on above: Performed By: #### 1 2703352, 7696828, 6767295, 0432074 #### [facility] [address] [place] [address] Creatinine [Mass/Vol] 0.6 mg/dL Normal 0.5-1.3 [facility] Comment on above: Performed By: #### 1 9155943, 2186904, 1558058, 4062545 #### [facility] [address] [place] [address] Glucose [Mass/Vol] 90 mg/dL Normal 55-199 [facility] Comment on above: Performed By: #### 1 2850041, 6022033, 0590388, 2595931 #### [facility] [address] [place] [address] Potassium [Moles/Vol] 3.9 mmol/L Normal 3.5-5.3 [facility] Comment on above: Performed By: #### 1 4180642, 5281881, 3722370, 1208565 #### [facility] [address] [place] [address] Sodium [Moles/Vol] 138 mmol/L Normal 135-145 [facility] Comment on above: Performed By: #### 1 5375478, 8801548, 2519816, 1170102 #### [facility] [address] [place] [address] Urea nitrogen [Mass/Vol] 8 mg/dL Normal 5-21 [facility] Comment on above: Performed By: #### 1 8114065, 6887844, 1860333, 1532474 #### [facility] [address] [place] [address] BhCG Quanton 06-09-2023 Beta hCG Qnt 32 mIU/mL High 1-3 [facility] Comment on above: Result Comment: 'F N ON < 1 - 3' ' 0.2 - 1 WEEK = 5 TO 50' ' 1 - 2 WEEKS = 50 - 500' ' 2 - 3 WEEKS = 100 - 5000' ' 3 - 4 WEEKS = 500 - 19384' ' 4 - 5 WEEKS = 1000 - 71150' ' 5 - 6 WEEKS = 85880 - 807585' ' 6 - 8 WEEKS = 04167 - 650543' ' 8 - 12 WEEKS = 25703 - 165208' Performed By: #### 1 5573164, 2954525, 2573344, 8667237 #### [facility] [address] [place] [address] CBC w/ Auto Diffon Erythrocyte distribution width (RBC) [Ratio] 14.0 % Normal 10.9-14.2 [facility] Comment on above: Performed By: #### 1 6435371, 1616350, 5247282, 0845984 #### [facility] [address] [place] [address] Hematocrit (Bld) [Volume fraction] 39.5 % Normal 34.0-46.0 [facility] Comment on above: Performed By: #### 1 2385891, 7359069, 1781051, 9854300 #### [facility] [address] [place] [address] Hemoglobin (Bld) [Mass/Vol] 13.2 g/dL Normal 12.0-16.0 [facility] Comment on above: Performed By: #### 1 4869078, 2212467, 7486733, 7063114 #### [facility] [address] [place] [address] MCH (RBC) [Entitic mass] 27.5 pg Normal 27.0-34.0 [facility] Comment on above: Performed By: #### 1 2068983, 6524633, 8362184, 3915430 #### [facility] [address] [place] [address] 95831 MCHC (RBC) [Mass/Vol] 33.5 g/dL Normal 31.4-36.0 [facility] Comment on above: Performed By: #### 1 8194750, 9744756, 1928083, 6499632 #### [facility] [address] [place] [address] 56758 MCV (RBC) [Entitic vol] 81.9 fL Normal 80.0-100.0 [facility] Comment on above: Performed By: #### 1 6950707, 7456917, 5742548, 3711690 #### [facility] [address] [place] [address] 80492 Platelet mean volume (Bld) [Entitic vol] 7.2 fL Normal 6.4-10.8 [facility] Comment on above: Performed By: #### 1 9976962, 2925568, 8367533, 7637859 #### [facility] [address] [place] [address] 69587 Platelets (Bld) [#/Vol] 304.0 E9/L Normal 150.0-500.0 [facility] Comment on above: Performed By: #### 1 5940987, 1204279, 8898492, 3815867 #### [facility] [address] [place] [address] 62306 RBC (Bld) [#/Vol] 4.8 E12/L Normal 4.3-5.9 [facility] Comment on above: Performed By: #### 1 6767615, 1594811, 5263952, 1043146 #### [facility] [address] [place] [address] WBC corrected for nucl RBC Auto (Bld) [#/Vol] 7.4 E9/L Normal 4.0-11.0 [facility] Comment on above: Performed By: #### 1 9181145, 5982381, 5872559, 7071620 #### [facility] [address] [place] [address] CHEMISTRYOrdered By: SYSTEM SYSTEM on 06-09-2023 Anion gap [Moles/Vol] 11 mmol/L Normal 6 - 16 mEq/L R emisol Chem Calcium [Mass/Vol] 9.4 mg/dL Normal 8.9 - 11. 1 mg/dL [facility] Chloride [Moles/Vol] 104 mmol/L Normal 101 - 1 11 mmol/L [facility] CO2 [Moles/Vol] 27 mmol/L Normal 21 - 31 mmol/L [facility] Creatinine [Mass/Vol] 0.6 mg/dL Normal 0.5 - 1.3 mg/dL [facility] eGFR mL/min/1.73 m2 Normal >=59mL/min/1 .73 m2 [facility] Glucose [Mass/Vol] 90 mg/dL Normal 55 - 199 mg/dL [facility] HCG.beta subunit Qn 32 m[IU]/mL High 1 - 3 mIU/mL Re misol Chem Comment on above: Result Comment: 'F N ON < 1 - 3' ' 0.2 - 1 WEEK = 5 TO 50' ' 1 - 2 WEEKS = 50 - 500' ' 2 - 3 WEEKS = 100 - 5000' ' 3 - 4 WEEKS = 500 - 71130' ' 4 - 5 WEEKS = 1000 - 04126' ' 5 - 6 WEEKS = 47344 - 782687' ' 6 - 8 WEEKS = 08558 - 353450' ' 8 - 12 WEEKS = 03332 - 200124' Potassium [Moles/Vol] 3.9 mmol/L Normal 3.5 - 5.3 mmol/L [facility] Sodium [Moles/Vol] 138 mmol/L Normal 135 - 145 mmol/L [facility] Urea nitrogen [Mass/Vol] 8 mg/dL Normal 5 - 21 mg/dL [facility] Urea nitrogen/Creatinine [Mass ratio] 13 mg/mg Normal 10 - 20 [facility] Consent for Treatmenton 05-27 Consent for Treatment [id number] 99#1.00TIFF Normal [facility] Discharge Instructionson Discharge Instructions [id number]#1.00TIFF Normal [facility] ED Clinical Summaryon 2022 ED Clinical Summary [place] [id number] ED Clinical Summary Person Information Name: [facility]ENA[facility] Age: 27 Years : 1995 Sex: Female Language: Andorran PCP: ELIESER RODRÍGUEZ Marital Status: Single Phone: [phone] Visit Id: Visit Reason: Vaginal bleeding - [...] 06/09/2023 21:35:20 06/09/2023 21:35:20 06/09/2023 21:35:20 ADDRESS: [address] [place] [id number] PHYS DOC NOTES: MEDICAL INFORMATION: Prescriptions Given: [...] First Trimester Follow up: With: Address: When: [facility], [address] [place] [address] , [place] [address] Business (1) In 3 days 06/12/2023 DIAGNOSIS: Threatened miscarriage in early Normal [facility] ED Note-Physicianon 06-09-20 ED Note-Physician Basic Information [...] hours. 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 Patient voices understanding and is agreeable to plan Disposition Plan Patient Discharge Condition improved, stable Discharge Disposition to home Discharge Prescription List Prescriptions No active prescription medications Follow-up With When Contact Information Kuldip GONZALES In 3 days 06/12/[address] [place] [address]- Business (1) Additional Instructions: Patient Education Vaginal Bleeding During , First Trimester Attestation Patient was treated and evaluated by the Physician Aircraft Delivery Checker. The attending physician was in the Emergency [...] 18:32:00) Lymph Auto: 29 % (06/09/23 18:32:00) [place] Auto: 5.9 % (06/09/23 18:32:00) Eos Auto: 1.1 % (06/09/23 18:32:00) Basophil Auto: 0.9 % (06/09/23 18:32:00) Neutro Absolute: 4.7 E9/L (06/09/23 18:32:00) Lymph Absolute: 2.2 E9/L (06/09/23 18:32:00) [place] Absolute: 0.4 E9/L (06/09/23 18:32:00) Eos Absolute: 0.1 E9/L (06/09/23 18:32:00) Basophil Absolute: 0.1 E9/L (06/09/23 18:32:00) Glucose Lvl: 90 mg/dL (06/09/23 18:32:00) BUN: 8 mg/dL ( (more content not included)... Normal [facility] Comment on above: Result Comment: Elec tronically [...] your regular activities. General instructions ? Take kxdb-nrw-loftbqu and prescription medicines only as told by [...] provider. Document Revised: 03/05/2021 Document Reviewed: 03/05/2021 [employer] Patient Education ? 2022 [employer] Nery [facility] ED Patient Summaryon 023 ED Patient Summary [address] [address] Patient Discharge Instructions Person Information Name: ZENAIDA SUTHERLAND Age: 27 Years Arrival Date: 06/09/2023 16:54:49 Discharge Diagnosis: Threatened miscarriage in early Primary Care Physician: MARCOS, GENERIC Provider Information Primary Provider: Fransisco Paulino DO Advanced Relocation Specialist:Jasmina Martinez PA-C The exam and treatment you received in the Emergency Department were for an urgent problem and are not intended as complete care. It is important that you follow up with a doctor, nurse practitioner, or physician?s agency sales management assistant for ongoing care. If your symptoms become worse or you do not improve as expected and you are unable to reach your usual health care provider, you should return to the Emergency Department. We are available 24 hours a day. ZENAIDA SUTHERLAND has been given the following list of patient education materials, prescriptions and follow-up instructions: Follow-up Instructions: With: Address: When: Kuldip GONZALES [facility], [address] [place] [address] [place] [address] Business (1) In 3 days 06/12/2023 In the event that this physician does not participate in your insurance network, please consult with your insurance company to find a nearby participating provider. Patient Education Materials: Vaginal Bleeding During , First Trimester A MESSAGE TO ALL PATIENTS REGARDING OPIOIDS PRESCRIPTION OPIOIDS: WHAT YOU NEED TO KNOW Prescription opioids can be used to help relieve xewukikm-wn-egfyfa pain and are often prescribed following a [...] be struggling with addiction, tell your health hospice care consultant and ask for guidance (more content not included)... Normal [facility] HEMATOLOGYOrdered By: SYSTEM SYSTEM on 06-09-2023 Basophils/100 WBC (Bld) 0.9 % Normal 0.0 - 2.0 % [facility] HemeAutoSS Basophils/Leukocytes Auto (Bld) [Pure # fraction] 0.1 E9/L Normal 0.0 - 0.2 E9/L [facility] HemeAutoSS Eosinophils/100 WBC (Bld) 1.1 % Normal 0.0 - 8.0 % [facility] HemeAutoSS Eosinophils/Leukocyte s Auto (Bld) [Pure # fraction] 0.1 E9/L Normal 0.0 - 0.5 E9/L [facility] HemeAutoSS Lymphocytes/100 WBC (Bld) 29.0 % Normal 14.0 - 50.0 % [facility] HemeAutoSS Lymphocytes/Leukocyte s Auto (Bld) [Pure # fraction] 2.2 E9/L Normal 1.0 - 4.0 E9/L [facility] HemeAutoSS Monocytes/100 WBC (Bld) 5.9 % Normal 4.0 - 14.0 % [facility] HemeAutoSS Monocytes/Leukocytes Auto (Bld) [Pure # fraction] 0.4 E9/L Normal 0.2 - 1.0 E9/L [facility]eAutoSS Neutrophils/100 WBC (Bld) 63.1 % Normal 36.0 - 75.0 % [facility] HemeAutoSS Neutrophils/Leukocyte s Auto (Bld) [Pure # fraction] 4.7 E9/L Normal 2.0 - 7.5 E9/L [facility] HemeAutoSS HEMATOLOGYOrdered By: Genesis Sipmson on 06-09-2023 Erythrocyte distribution width (RBC) [Ratio] 14.0 % Normal 10.9 - 14.2 % [facility] HemeAutoSS Hematocrit (Bld) [Volume fraction] 39.5 % Normal 34.0 - 46.0 % [facility] HemeAutoSS Hemoglobin (Bld) [Mass/Vol] 13.2 g/dL Normal 12.0 - 16.0 gm/dL [facility]eAuto[facility] MCH (RBC) [Entitic mass] 27.5 pg Normal 27.0 - 34.0 pg [facility]eAuto[facility] MCHC (RBC) [Mass/Vol] 33.5 g/dL Normal 31.4 - 36.0 gm/dL [facility] HemeAutoSS MCV (RBC) [Entitic vol] 81.9 fL Normal 80.0 - 100.0 fL [facility] HemeAutoSS Platelet mean volume (Bld) [Entitic vol] 7.2 fL Normal 6.4 - 10.8 fL [facility] HemeAutoSS Platelets (Bld) [#/Vol] 304.0 E9/L Normal 150.0 - 500.0 E9/L [facility] HemeAutoSS RBC (Bld) [#/Vol] 4.8 E12/L Normal 4.3 - 5.9 E12/L [facility] HemeAutoSS WBC corrected for nucl RBC Auto (Bld) [#/Vol] 7.4 E9/L Normal 4.0 - 11.0 E9/L [facility] HemeAutoSS SEROLOGYOrdered By: Juhi flores on 06-09-2023 HCG.beta subunit (U) [Moles/Vol] Positive (06/09/23 5:58 PM) Normal [facility] Man Sero U BetaHcg Qualon 06-09-2023 HCG.beta subunit (U) [Moles/Vol] Positive Normal [facility] Comment on above: Performed By: #### 1 [id number], [id number] #### [facility] [address] [place] [address] UA With Cult Reflexon 2022 Bacteria LM Ql (Urine sed) TRACE Normal Trace [facility] Comment on above: Performed By: #### 1 7789563, 51279360 #### [facility] [address] [place] [address] Bilirubin Ql (U) Negative Normal Negative [facility] Comment on above: Performed By: #### 1 4224588, [id number] #### [facility] [address] [place] [address] Calcium oxalate crystals LM Ql (Urine sed) Present Normal [facility] Comment on above: Performed By: #### 1 0907727, 72029602 #### [facility] [address] [place] [address] Clarity (U) CLEAR Normal Clear [facility] Comment on above: Performed By: #### 1 0162765, 62451737 #### [facility] [address] [place] [address] Color (U) YELLOW Normal Yellow [facility] Comment on above: Performed By: #### 1 6857632, [id number] #### [facility] [address] [place] [address] Crystals LM Ql (Urine sed) Present Normal [facility] Comment on above: Performed By: #### 1 5571258, 23816150 #### [facility] [address] [place] [address] Epithelial cells.squamous LM.HPF (Urine sed) [#/Area] 3-4 Normal 0-2 [facility] Comment on above: Performed By: #### 1 2630634, 40663625 #### [facility] [address] [place] [address] 99288 Glucose Test strip (U) [Mass/Vol] Negative Normal Negative [facility] Comment on above: Performed By: #### 1 1746057, 79900591 #### [facility] [address] [place] [address] Hemoglobin Ql (U) 2+ Abnormal Negative [facility] Comment on above: Performed By: #### 1 2052146, 10659881 #### [facility] [address] [place] [address] 90602 Ketones (U) [Mass/Vol] TRACE Abnormal Negative [facility] Comment on above: Performed By: #### 1 6954788, 85835824 #### [facility] [address] [place] [address] [place].plasma/Lithiu m.RBC (Bld) [Mass ratio] 0-3 Normal 0-3 [facility] Comment on above: Performed By: #### 1 5719918, 53613437 #### [facility] [address] [place] [address] Mucus Ql (Urine sed) 2+ Normal [facility] Comment on above: Performed By: #### 1 4480415, 40960215 #### [facility] [address] [place] [address] [place] [address] Nitrite Ql (U) Negative Normal Negative [facility] Comment on above: Performed By: #### 1 0450598, 56292761 #### [facility] [address] [place] [address] 88089 pH (U) 6.0 [pH] Invalid Interpretation Code 5.0-9.0 [facility] Comment on above: Performed By: #### 1 9696575, 13744928 #### [facility] [address] [place] [address] 78412 Protein (U) [Mass/Vol] Negative Normal Negative [facility] Comment on above: Performed By: #### 1 7980838, 48546255 #### [facility] [address] [place] [address] 96640 Specific gravity (U) [Rel density] >=1.030 Invalid Interpretation Code 1.005-1.030 [facility] Comment on above: Performed By: #### 1 9136048, 56814576 #### [facility] [address] [place] [address] 74269 Type of Urine collection method Clean Catch Normal [facility] Comment on above: Performed By: #### 1 4452466, [id number] #### [facility] [address] [place] [address] 58854 Urobilinogen Qn (U) 0.2 {Gene'U}/dL Normal 0.0-1.0 [facility] Comment on above: Performed By: #### 1 2911319, 74300399 #### [facility] [address] [place] [address] 51779 WBC Auto Ql (U) Negative Normal Negative [facility] Comment on above: Performed By: #### 1 6532648, 13095441 #### [facility] [address] [place] [address] 61480 WBC LM.HPF (Urine sed) [#/Area] 0-5 Normal 0-5 [facility] Comment on above: Performed By: #### 1 5800876, [id number] #### [facility] [address] [place] [address] URINALYSISOrdered By: Juhi rod on 06-09-2023 Bacteria LM Ql (Urine sed) Trace /HPF Normal Trace/HPF [facility] UA Auto SS Bilirubin Ql (U) Negative (06/09/23 5:58 PM) Normal Negative [facility] UA Auto SS Calcium oxalate crystals LM Ql (Urine sed) Present (06/09/23 5:58 PM) Normal [facility] UA Auto SS Clarity (U) Clear (06/09/23 5:58 PM) Normal Clear [facility] UA Auto SS Color (U) Yellow (06/09/23 5:58 PM) Normal Yellow [facility] UA Auto SS Crystals LM Ql (Urine sed) Present (06/09/23 5:58 PM) Normal [facility] UA Auto SS Epithelial cells.squamous LM.HPF (Urine sed) [#/Area] 3-4 /HPF Normal 0-2/HPF [facility] UA Aut o SS Glucose Test strip (U) [Mass/Vol] Negative (06/09/23 5:58 PM) Normal Negative [facility] UA Auto SS Hemoglobin Ql (U) 2+ *ABN* (06/09/23 5:58 PM) Invalid Interpretation Code Negative [facility] UA Auto SS Ketones (U) [Mass/Vol] Trace *ABN* (06/09/23 5:58 PM) Invalid Interpretation Code Negative [facility] UA Auto SS [place].plasma/Lithiu m.RBC (Bld) [Mass ratio] 0-3 /HPF Normal 0-3/HPF [facility] UA Auto SS Mucus Ql (Urine sed) 2+ (06/09/23 5:58 PM) Normal [facility] UA Auto SS Nitrite Ql (U) Negative (06/09/23 5:58 PM) Normal Negative [facility] UA Auto SS pH (U) 6.0 *NA* (06/09/23 5:58 PM) Invalid Interpretation Code 5.0 - 9.0 [facility] UA Auto SS Protein (U) [Mass/Vol] Negative (06/09/23 5:58 PM) Normal Negative [facility] UA Auto SS Specific gravity (U) [Rel density] >=1.030 *NA* (06/09/23 5:58 PM) Invalid Interpretation Code 1.005 - 1.030 [facility] UA Auto SS UA Spec Desc Clean Catch (06/09/23 5:58 PM) Normal [facility] UA Auto SS Urobilinogen Qn (U) [id number] {Gene'U}/dL Normal 0.0 - 1.0 EU/dL [facility] UA Auto SS WBC Auto Ql (U) Negative (06/09/23 5:58 PM) Normal Negative [facility] UA Auto SS WBC LM.HPF (Urine sed) [#/Area] 0-5 /HPF Normal 0-5/HPF [facility] UA Auto SS eGFRon 06-09-2023 GFR/1.73 sq M.predicted among non-blacks MDRD (S/P/Bld) [Vol rate/Area] mL/min/{1.73_m2} Normal >=59 [facility] Comment on above: Order Comment: Order added by Discern Expert. Performed By: #### 1 [id number], [id number] #### [facility] [address] [place] [address] XR ankle RT min 3V*on 2021 XR ankle RT min 3V* [facility] Main [place] [address] [place] [address] XRay Report Signed Patient: Zenaida Sagastume MR#: [id number] 9 : 1995 Acct:[id number] Age/Sex: 26 / F ADM Date: 01/03/22 Loc: [id number] Room: Type: [facility] Attending Dr: Kraig Haynes PA-C Copies to: Kraig Haynes Ordering Provider: Kraig Haynes Date of Service: 01/03/22 XR/XR ankle RT min 3V*: Injury of right ankle, 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 3views Rightankle COMPARISON:None HISTORY: RIGHT ankle injury No fracture, dislocation or focal soft tissue abnormality seen. XR/XR ankle RT min 3V* IMPRESSION: No acute findings. Impression dictated by: Efraín Gary M.D.01/03/2022 12:18 PM Dictation Location: [place] [address] Transcribed By: [facility] 01/03/22 1218 Dictated By: Efraín Gary DO 01/03/22 1217 Signed By: 01/03/22 1218 Normal [facility] XR ankle RT min 3V* [facility] [employer] ([employer] Other XR ankle RT min 3V* [facility] [employer] Other XR ankle RT min 3V* [address] [employer] Other XR ankle RT min 3V* [place] [address] [email or web address] Other XR ankle RT min 3V* XRay Report [facility] [employer] Other XR ankle RT min 3V* Signed [email or web address] Other XR ankle RT min 3V* Patient: Zenaida Sagastume MR#: [id number] [email or web address] Other XR ankle RT min 3V* 9 [email or web address] Other XR ankle RT min 3V* : 1995 Acct:[id number] [email or web address] Other XR ankle RT min 3V* Age/Sex: 26 / F ADM Date: 01/03/22 [email or web address] Other XR ankle RT min 3V* Loc: [id number] Room: Type: [facility] [email or web address] Other XR ankle RT min 3V* Attending Dr: Kraig Haynes PA-C [email or web address] Other XR ankle RT min 3V* Copies to: Kraig Haynes [email or web address] Other XR ankle RT min 3V* Ordering Provider: Kraig Haynes [email or web address] Other XR ankle RT min 3V* Date of Service: 01/03/22 [email or web address] Other XR ankle RT min 3V* XR/XR ankle RT min 3V*: Injury of right ankle, 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 [email or web address] Other XR ankle RT min 3V* 3views Rightankle [email or web address] Other XR ankle RT min 3V* COMPARISON:None [email or web address] Other XR ankle RT min 3V* HISTORY: RIGHT ankle injury [email or web address] Other XR ankle RT min 3V* No fracture, dislocation or focal soft tissue abnormality seen. [email or web address] Other XR ankle RT min 3V* XR/XR ankle RT min 3V* [email or web address] Other XR ankle RT min 3V* IMPRESSION: No acute findings. [email or web address] Other XR ankle RT min 3V* Impression dictated by: Efraín Gary M.D.01/03/2022 12:18 PM [email or web address] Other XR ankle RT min 3V* Dictation Location: [place] [address] [email or web address] Other XR ankle RT min 3V* Transcribed By: PWS 01/03/22 1218 [email or web address] Other XR ankle RT min 3V* Dictated By: Efraín Gary DO 01/03/22 1217 [email or web address] Other XR ankle RT min 3V* Signed By: [email or web address] Other XR ankle RT min 3V* 01/03/22 1218 No [employer] Other ED Pat Eduon 10-25-2019 ED Pat Edu [place] [id number] Emergency Department Discharge Instructions ZENAIDA SAGASTUME , Please provide this information to your Primary Care/Specialist Name : ZENAIDA SAGASTUME Current Date : 10/24/2019 22:11:44 : 1995 Primary Care Physician : Apolonia Mayer CNP Diagnosis: Follow-Up Instructions: ZENAIDA SAGASTUME has been given these follow-up instructions: FOLLOW-UP APPOINTMENTS: Provider: Specialty: Address: Date: Apolonia Mayer [address] [address] (1) 10 to 14 days Comment: Call for an Appointment Provider: Specialty: Address: Date: Return to Emergency Department Follow-up as needed Comment: For new or concerning symptoms Laboratory Orders: Name: Status: Coronavirus (COVID-19/SARS-CoV- 2) RAPID Completed Radiology Orders: None Ordered Diagnostic Tests: None Ordered Procedure(s) and Patient Education(s) : Work Release 3 Days COVID19 ([id number]); COL COVID19 Caring for Yourself at Home (Suspected or Confirmed) (Custom); COL COVID19 Self Isolation (Custom) EMERGENCY SERVICES MEDICATION LIST [facility] Name ZENAIDA SAGASTUME MRN (COL)-[id number] PLEASE READ THE FOLLOWING REGARDING YOUR MEDICATIONS [...] doses are changed, or new medications (including hapu-qke-dtuvfjd products) are added. If you have any [...] UNTIL YOU TALK TO YOUR DOCTOR None [facility] [address] [place], [place] [address] Emergency Department Discharge Instructions Name: ZENAIDA SAGASTUME Current Date: 10/24/2019 22:11:44 : 1995 Primary Physician: Apolonia Mayer CNP We would like to thank you for choosing [facility] for your emergency medical needs. We [...] and the health of those around you. [facility] offers many resources to help with smoking cessation. Call the [place] Nav[employer]ience Quit Line at 2-032-IWVTNOW ( ). High blood pressure: Your screening [...] deadly infections. Discuss this with your child's vocational ed instructor, or Public Health Department. Your family practice doctor can determine if you need pneumonia or flu vaccine. The [facility] Department can be reached at . Substance Abuse Program: Concerns with addiction to alcohol, benzodiazepines (Ativan or Xanax) and Opiates (Heroin, Percocet, OxyContin, Methadone or Fentanyl)? [facility] offers an inpatient Substance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
== END 2024-08-01 19:52 | disposition home or self-care (01) ==
LOC: LAB 19:51
PROVIDERS: Visit Provider Obstetrics & Gynecology
DX: Z34.93 Encounter for supervision of normal pregnancy, unspecified, third trimester (principal)
CPT/HCPCS: 36415; 87081

== ENCOUNTER 2024-08-10 00:19 | Outpatient (OUT) | payer BC, SELFPAY ==
--- OUTSIDE RECORDS SUMMARY | 2024-08-10 00:22 | XMS_ITS | CCD ---
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 [address]397 MCHC (RBC) [Mass/Vol] 33.5 g/dL Normal 31.4-36.0 [facility] Comment on above: Performed By: #### 1 2471705, 5437791, 4689063, 1921677 #### [facility] [address] [place] [address] 31465 MCV (RBC) [Entitic vol] 81.9 fL Normal 80.0-100.0 [facility] Comment on above: Performed By: #### 1 1840070, 5650981, 9438229, 7397378 #### [facility] [address] [place] [address] Platelet mean volume (Bld) [Entitic vol] 7.2 fL Normal 6.4-10.8 [facility] Comment on above: Performed By: #### 1 0873409, 9183949, 8694727, 8417627 #### [facility] [address] [place] [address] Platelets (Bld) [#/Vol] 304.0 E9/L Normal 150.0-500.0 [facility] Comment on above: Performed By: #### 1 8863958, 6793490, 5546152, 7562335 #### [facility] [address] [place] [address] RBC (Bld) [#/Vol] 4.8 E12/L Normal 4.3-5.9 [facility] Comment on above: Performed By: #### 1 7803125, 9660554, 7514559, 6248982 #### [facility] [address] [place] [address] WBC corrected for nucl RBC Auto (Bld) [#/Vol] 7.4 E9/L Normal 4.0-11.0 [facility] Comment on above: Performed By: #### 1 7102670, 7020183, 1325471, 5745368 #### [facility] [address] [place] [address] CHEMISTRYOrdered By: SYSTEM SYSTEM on 06-09-2023 Anion [...] 3 - 4 WEEKS = 500 - 00063' ' 4 - 5 WEEKS = 1000 - 91595' ' 5 - 6 WEEKS = 18926 - 454761' ' 6 - 8 WEEKS = 88311 - 920774' ' 8 - 12 WEEKS = 99727 - 631037' Potassium [Moles/Vol] 3.9 mmol/L Normal 3.5 - 5.3 mmol/L [facility] Sodium [Moles/Vol] 138 mmol/L Normal 135 - 145 mmol/L [facility] Urea nitrogen [Mass/Vol] 8 mg/dL Normal 5 - 21 mg/dL [facility] Urea nitrogen/Creatinine [Mass ratio] 13 mg/mg Normal 10 - 20 [facility] Consent for Treatmenton 05-27 Consent for Treatment [id number] Normal [facility] Discharge Instructionson Discharge Instructions [id number] Normal [facility] ED Clinical Summaryon 2022 ED Clinical Summary [place] [id number] ED Clinical Summary Person Information Name: ZENAIDA SUTHERLAND/[facility] Age: 27 Years : 1995 Sex: Female Language: Cambodian PCP: ELIESER RODRÍGUEZ Marital Status: Single Phone: [phone] Visit Id: Visit Reason: Vaginal bleeding - [...] 06/09/2023 21:35:20 06/09/2023 21:35:20 06/09/2023 21:35:20 ADDRESS: [address] [place] [address] [id number] PHYS DOC NOTES: MEDICAL INFORMATION: Prescriptions Given: [...] First Trimester Follow up: With: Address: When: [facility], [address] [place] [address] [place] [address] Business (1) In 3 days 06/12/2023 DIAGNOSIS: Threatened miscarriage in early Normal [facility] ED Note-Physicianon 06-09-20 ED Note-Physician [...] hours. Patient is to follow with her INSURANCE AGENT in the next few days and is to return to the ED with any new or worsening symptoms or worsening heavy bleeding. Patient voices understanding and is agreeable to plan Disposition Plan Patient Discharge Condition improved, stable Discharge Disposition to home Discharge Prescription List Prescriptions No active prescription medications Follow-up With When Contact Information Kuldip GONZALES In 3 days 06/12/[address] [place] [address]- Business (1) Additional Instructions: Patient Education Vaginal Bleeding During , First Trimester Attestation Patient was treated and evaluated by the Physician Water Control Station Engineer. The attending physician was in the Emergency [...] 18:32:00) Lymph Auto: 29 % (06/09/23 18:32:00) [place] Auto: 5.9 % (06/09/23 18:32:00) Eos Auto: 1.1 % (06/09/23 18:32:00) Basophil Auto: 0.9 % (06/09/23 18:32:00) Neutro Absolute: 4.7 E9/L (06/09/23 18:32:00) Lymph Absolute: 2.2 E9/L (06/09/23 18:32:00) [place] Absolute: 0.4 E9/L (06/09/23 18:32:00) Eos Absolute: 0.1 E9/L (06/09/23 18:32:00) Basophil Absolute: 0.1 E9/L (06/09/23 18:32:00) Glucose Lvl: 90 mg/dL (06/09/23 18:32:00) BUN: 8 mg/dL ( (more content not included)... Normal [facility] Comment on above: Result Comment: [...] your regular activities. General instructions ? Take xakw-cga-bgmxmho and prescription medicines only as told by [...] provider. Document Revised: 03/05/2021 Document Reviewed: 03/05/2021 Elsevier Patient Education ? 2022 [employer]. Normal [facility] ED Patient Summaryon 023 ED Patient Summary [address] [address] Patient Discharge Instructions Person Information Name: ZENAIDA SUTHERLAND Age: 27 Years Arrival Date: 06/09/2023 16:54:49 Discharge Diagnosis: Threatened miscarriage in early Primary Care Physician: ELIESER RODRÍGUEZ Provider Information Primary Provider: Fransisco Paulino DO [employer] Salesperson:Jasmina Martinez PA-C The exam and treatment you received in the Emergency Department were for an urgent problem and are not intended as complete care. It is important that you follow up with a doctor, nurse practitioner, or physician?s assistant attorney general for ongoing care. If your symptoms become worse or you do not improve as expected and you are unable to reach your usual health care provider, you should return to the Emergency Department. We are available 24 hours a day. ZENAIDA SUTHERLAND has been given the following list of patient education materials, prescriptions and follow-up instructions: Follow-up Instructions: With: Address: When: Kuldip GONZALES [facility], [address] [place] [address] [place] [address] Business (1) In 3 days 06/12/2023 In the event that this physician does not participate in your insurance network, please consult with your insurance company to find a nearby participating provider. Patient Education Materials: Vaginal Bleeding During , First Trimester A MESSAGE TO ALL PATIENTS REGARDING OPIOIDS PRESCRIPTION OPIOIDS: WHAT YOU NEED TO KNOW Prescription opioids can be used to help relieve plbdugvo-nr-kpkjpk pain and are often prescribed following a [...] be struggling with addiction, tell your health medicare specialist and ask for guidance (more content not included)... Normal [facility] HEMATOLOGYOrdered By: SYSTEM SYSTEM on [...] 7.5 E9/L [facility] HemeAutoSS HEMATOLOGYOrdered By: Genesis Simpson on 06-09-2023 Erythrocyte distribution width (RBC) [Ratio] [...] 81.9 fL Normal 80.0 - 100.0 fL [facility] HemeAutoSS Platelet mean volume (Bld) [Entitic vol] 7.2 fL Normal 6.4 - 10.8 fL [facility] HemeAutoSS Platelets (Bld) [#/Vol] 304.0 E9/L Normal 150.0 - 500.0 E9/L [facility] HemeAutoSS RBC (Bld) [#/Vol] 4.8 E12/L Normal 4.3 - 5.9 E12/L [facility] HemeAutoSS WBC corrected for nucl RBC Auto (Bld) [#/Vol] 7.4 E9/L Normal 4.0 - 11.0 E9/L [facility] HemeAutoSS SEROLOGYOrdered By: Juhi flores on 06-09-2023 HCG.beta subunit (U) [Moles/Vol] Positive (06/09/23 5:58 PM) Normal [facility] Man Sero U BetaHcg Qualon 06-09-2023 HCG.beta subunit (U) [Moles/Vol] Positive Normal [facility] Comment on above: Performed By: #### 1 6274022, [id number] #### [facility] [address] [place] [address] UA With Cult Reflexon 2022 Bacteria LM Ql (Urine sed) TRACE Normal Trace [facility] Comment on above: Performed By: #### 1 7794673, 66175411 #### [facility] [address] [place] [address] Bilirubin Ql (U) Negative Normal Negative [facility] Comment on above: Performed By: #### 1 7142487, 35875466 #### [facility] [address] [place] [address] Calcium oxalate crystals LM Ql (Urine sed) Present Normal [facility] Comment on above: Performed By: #### 1 2790049, 17404579 #### [facility] [address] [place] [address] Clarity (U) CLEAR Normal Clear [facility] Comment on above: Performed By: #### 1 5910364, 64437205 #### [facility] [address] [place] [address] Color (U) YELLOW Normal Yellow [facility] Comment on above: Performed By: #### 1 5716112, 30148644 #### [facility] [address] [place] [address] Crystals LM Ql (Urine sed) Present Normal [facility] Comment on above: Performed By: #### 1 8574503, 66007213 #### [facility] [address] [place] [address] Epithelial cells.squamous LM.HPF (Urine sed) [#/Area] 3-4 Normal 0-2 [facility] Comment on above: Performed By: #### 1 4081756, 48391075 #### [facility] [address] [place] [address] Glucose Test strip (U) [Mass/Vol] Negative Normal Negative [facility] Comment on above: Performed By: #### 1 7934029, 51233962 #### [facility] [address] [place] [address] Hemoglobin Ql (U) 2+ Abnormal Negative [facility] Comment on above: Performed By: #### 1 9746224, 34366510 #### [facility] [address] [place] [address] Ketones (U) [Mass/Vol] TRACE Abnormal Negative [facility] Comment on above: Performed By: #### 1 2635409, 02962293 #### [facility] [address] [place] [address] New [place].plasma/Lithiu m.RBC (Bld) [Mass ratio] 0-3 Normal 0-3 [facility] Comment on above: Performed By: #### 1 2930388, 45062189 #### [facility] [address] [place] [address] Mucus Ql (Urine sed) 2+ Normal [facility] Comment on above: Performed By: #### 1 7564253, 48181841 #### [facility] [address] [place] [address] Nitrite Ql (U) Negative Normal Negative [facility] Comment on above: Performed By: #### 1 3732599, 53452904 #### [facility] [address] [place] [address] 86[address] pH (U) 6.0 [pH] Invalid Interpretation Code 5.0-9.0 [facility] Comment on above: Performed By: #### 1 3565429, 49312271 #### [facility] [address] [place] [address] Protein (U) [Mass/Vol] Negative Normal Negative [facility] Comment on above: Performed By: #### 1 8142753, 67693550 #### [facility] [address] [place] [address] 67003 Specific gravity (U) [Rel density] >=1.030 Invalid Interpretation Code 1.005-1.030 [facility] Comment on above: Performed By: #### 1 7150583, 74036061 #### [facility] [address] [place] [address] Type of Urine collection method Clean Catch Normal [facility] Comment on above: Performed By: #### 1 6481137, 14603533 #### [facility] [address] [place] [address]18[address] Urobilinogen Qn (U) 0.2 {Gene'U}/dL Normal 0.0-1.0 [facility] Comment on above: Performed By: #### 1 4944985, 90536208 #### [facility] [address] [place] [address] WBC Auto Ql (U) Negative Normal Negative [facility] Comment on above: Performed By: #### 1 5279473, 24713661 #### [facility] [address] [place] [address] WBC LM.HPF (Urine sed) [#/Area] 0-5 Normal 0-5 [facility] Comment on above: Performed By: #### 1 2806926, 54801952 #### [facility] [address] [place] [address] URINALYSISOrdered By: Juhi rod on 06-09-2023 Bacteria [...] Interpretation Code Negative [facility] UA Auto SS [place].plasma/Lithiu m.RBC (Bld) [Mass ratio] 0-3 /HPF Normal 0-3/HPF [facility] UA Auto SS Mucus Ql (Urine sed) 2+ (06/09/23 5:58 PM) Normal [facility] UA Auto SS Nitrite Ql (U) Negative (06/09/23 5:58 PM) Normal Negative [facility] UA Auto SS pH (U) 6.0 *NA* (06/09/23 5:58 PM) Invalid Interpretation Code 5.0 - 9.0 [facility] UA Auto SS Protein (U) [Mass/Vol] Negative (06/09/23 5:58 PM) Normal Negative [facility] UA Auto SS Specific gravity (U) [Rel density] >=1.030 *NA* (06/09/23 5:58 PM) Invalid Interpretation Code 1.005 - 1.030 [facility] UA Auto SS UA Spec Desc Clean Catch (06/09/23 5:58 PM) Normal [facility] UA Auto SS Urobilinogen Qn (U) 0.2058843 {Gene'U}/dL Normal 0.0 - 1.0 EU/dL [facility] UA Auto SS WBC Auto Ql (U) Negative (06/09/23 5:58 PM) Normal Negative [facility] UA Auto SS WBC LM.HPF (Urine sed) [#/Area] 0-5 /HPF Normal 0-5/HPF [facility] UA Auto SS eGFRon 06-09-2023 GFR/1.73 sq M.predicted among non-blacks MDRD (S/P/Bld) [Vol rate/Area] mL/min/{1.73_m2} Normal >=59 [facility] Comment on above: Order Comment: Order added by Discern Expert. Performed By: #### 1 6757273, 7634820, 3518161, 9624362 #### [facility] [address] [place] [address] XR ankle RT min 3V*on 2021 XR ankle RT min 3V* [facility] Main [address] [address] XRay Report Signed Patient: Zenaida Sagastume MR#: [id number] 9 : 1995 Acct:[id number] Age/Sex: 26 / F ADM Date: 01/03/22 Loc: [id number] Room: Type: [facility] Attending Dr: Kraig QUINTANAC Copies to: Kraig Haynes Ordering Provider: Kraig Haynes Date of Service: 01/03/22 XR/XR ankle RT min 3V*: Injury of right ankle, 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 3views Rightankle COMPARISON:None HISTORY: RIGHT ankle injury No fracture, dislocation or focal soft tissue abnormality seen. XR/XR ankle RT min 3V* IMPRESSION: No acute findings. Impression dictated by: Efraín Gary M.D.01/03/2022 12:18 PM Dictation Location: [facility]- Transcribed By: [facility] 01/03/22 1218 Dictated By: Efraín Gary DO 01/03/22 1217 Signed By: 01/03/22 1218 Normal [facility] XR ankle RT min 3V* [facility] [employer] Other XR ankle RT min 3V* [facility] [employer] Other XR ankle RT min 3V* [address] [place] [address] [employer] Other XR ankle RT min 3V* [place] [address] [employer] Other XR ankle RT min 3V* XRay Report [place] [employer] Other XR ankle RT min 3V* Signed [employer] Other XR ankle RT min 3V* Patient: Zenaida Sagastume MR#: [id number] [place] [employer] Other XR ankle RT min 3V* 9 [employer] Other XR ankle RT min 3V* : 1995 Acct:[id number] [employer] Other XR ankle RT min 3V* Age/Sex: 26 / F ADM Date: 01/03/22 [employer] Other XR ankle RT min 3V* Loc: [id number] Room: Type: [facility] [employer] Other XR ankle RT min 3V* Attending Dr: Kraig Haynes PA-C [employer] Other XR ankle RT min 3V* Copies to: Kraig Haynes [employer] Other XR ankle RT min 3V* Ordering Provider: Kraig Haynes [employer] Other XR ankle RT min 3V* Date of Service: 01/03/22 [employer] Other XR ankle RT min 3V* XR/XR ankle RT min 3V*: Injury of right ankle, 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 [employer] Other XR ankle RT min 3V* 3views Rightankle [employer] Other XR ankle RT min 3V* COMPARISON:None [employer] Other XR ankle RT min 3V* HISTORY: RIGHT ankle injury [employer] Other XR ankle RT min 3V* No fracture, dislocation or focal soft tissue abnormality seen. [employer] Other XR ankle RT min 3V* XR/XR ankle RT min 3V* [employer] Other XR ankle RT min 3V* IMPRESSION: No acute findings. [employer] Other XR ankle RT min 3V* Impression dictated by: Efraín Gary M.D.01/03/2022 12:18 PM [employer] Other XR ankle RT min 3V* Dictation Location: [place] [address] [employer] Other XR ankle RT min 3V* Transcribed By: [facility] 01/03/22 1218 [employer] Other XR ankle RT min 3V* Dictated By: Efraín Gary DO 01/03/22 1217 [employer] Other XR ankle RT min 3V* Signed By: [employer] Other XR ankle RT min 3V* 01/03/22 1218 No [employer] Other ED Pat Ed 10-25-2019 ED Pat Edu [place] [address] Emergency Department Discharge Instructions ZENAIDA SAGASTUME , Please provide this information to your Primary Care/Specialist Name : ZENAIDA SAGASTUME Current Date : 10/24/2019 22:11:44 : 1995 Primary Care Physician : Apolonia Mayer CNP Diagnosis: Follow-Up Instructions: ZENAIDA SAGASTUME has been given these follow-up instructions: FOLLOW-UP APPOINTMENTS: Provider: Specialty: Address: Date: Apolonia Mayer CNP [address] [address] (1) 10 to 14 days Comment: Call for an Appointment Provider: Specialty: Address: Date: Return to Emergency Department Follow-up as needed Comment: For new or concerning symptoms Laboratory Orders: Name: Status: Coronavirus (COVID-19/SARS-CoV- 2) RAPID Completed Radiology Orders: None Ordered Diagnostic Tests: None Ordered Procedure(s) and Patient Education(s) : Work Release 3 Days COVID19 ([id number]); COL COVID19 Caring for Yourself at Home (Suspected or Confirmed) (Custom); COL COVID19 Self Isolation (Custom) EMERGENCY SERVICES MEDICATION LIST [facility]ios [facility] Emer[facility]cia Name ZENAIDA SAGASTUME MRN (COL)-[id number] PLEASE READ THE FOLLOWING REGARDING YOUR MEDICATIONS [...] doses are changed, or new medications (including jlfw-hml-swivajv products) are added. If you have any [...] UNTIL YOU TALK TO YOUR DOCTOR None [address] [address] Emergency Department Discharge Instructions Name: ZENAIDA SAGASTUME Current Date: 10/24/2019 22:11:44 : 1995 Primary Physician: Apolonia Mayer CNP We would like to thank you for choosing [facility] for your emergency medical needs. We examined [...] and the health of those around you. [facility] offers many resources to help with smoking cessation. Call the [place] Tobacco Quit Line at 3-865-QJHT-NOW ( ). High blood pressure: Your screening [...] deadly infections. Discuss this with your child's lead customer service representative, or Public Health Department. Your family practice doctor can determine if you need pneumonia or flu vaccine. The [facility] Department can be reached at . Substance Abuse Program: Concerns with addiction to alcohol, benzodiazepines (Ativan or Xanax) and Opiates (Heroin, Percocet, OxyContin, Methadone or Fentanyl)? [facility] offers an inpatient Substance Abuse Program to help treat the symptoms associated with medical detoxification of addictive substances. The new program offers care for non- adults (18 and older) looking to break the chain to addictive chemicals. The Substance Abuse Program is a voluntary inpatient admission and it starts with a pre-screening phone call to a social media executive. During the call, goals and objectives for recovery and how the patient will transition to outpatient care will be established. Please call [phone] to get help today. Domestic Violence: If you are a victim of domestic violence (physical, verbal, or emotional), you are not alone. Discuss this with your physician or a friend and call the [place] Domestic Violence Hotline or [place] Domestic Violence Hotline for assistance and support. [...] physician, call the Physician Referral Line at (976) 010-GEVJ (9494). Suicide Hotline: Your mental and emotional well-being is important. If you are in a mental health crisis or are having thoughts of suicide, please call the nationwide suicide hotline, anytime day or night, at 6-944-081-MNWW ([phone]). Community Title I Paraprofessional: You may be contacted by your local fire department for a follow up visit from a community steward/stewardess. The community steward/stewardess can help with a home safety check; follow up care, and general home care management. Pharmacy Information: Below is a list of 24 hour pharmacies that we are aware of. We suggest that you call the specific pharmacy for their hours before traveling to a location. Hours may vary on holidays. [facility] [place] [address] [place], [place] [phone] [place], [place] [address] [phone] [address] [place], [place] [phone] [address], [place] [phone] [address], [place] [phone] [address], [place] [phone] [address] [place], [place] [phone] Take all medications as directed. If you need prescription assistance, contact the following agencies: ?? Partnership for Prescription Assistance at or www.Dodonationx.org ?? [place] at or www.KagglerFive-Thirty.[employer] ?? www.RocketBolt.[employer] is a site with many valuable coupons Patient Education Materials ZENAIDA SAGASTUME has been given the following patient education materials: [facility] Emergency Department [address] [place] [address] Work Release Form This notice verifies that [...] - Your test is POSITIVE. Please call [facility] coronavirus helpline at with any additional [...] clean your hands with an alcohol-based hand bottle washing machine operator that contains at least 60% alcohol covering [...] clean your hands with an alcohol-based hand bottle washing machine operator that contains at least 60% alcohol, covering [...] isolation precautions should be made on a tkgp-fk-ggct basis, in consultation with healthcare providers and state and local health departments. For additional information, use the link or scan the QR code below: https://www.cdc.gov /coronavirus/2019-n cov/in-jfn-zmu-sick /nhitw-snif-rvdk.ht ml?CDC_AA_refVal=ht tps%3A%2F%2Fwww.cdc .gov%2Fcoronavirus% 0F2618-llvv%2Fabout %4Qekbii-orwh-qncn. html COVID-19 Self Isolation How to self-isolate [...] your room every day with a household opening machine cleaner or disinfectant. Don't ?? Do not go to work, school, adventist services or public areas. ?? Do not [...] should be collected and put in a lasting machine operator bed and hands washed properly afterwards. ?? If you don't have a lasting machine operator bed: wash in hot soapy water, wearing rubber [...] Many cleaning and disinfectant products sold in [employer] [place] can kill coronavirus on surfaces. ?? Clean [...] <><><><><><><><><>< ><><><><><><><><><> <><><><><><><> Patient Visit Summary Signature ZENAIDA SAGASTUME Judi has been given the following list of patient education materials, prescriptions and follow-up instructions: GucciMAITE BRIANNA G, have received the above patient education materials/instructi ons and have verbalized understanding: _ Date _ Time Patient Signature _ Date _ Time Provider Signature Normal [facility] Coronavirus (COVID-19/SARS-C oV-2) RAPIDon 10-24-2019 SARS-CoV-2 DETECTED Critically abnormal NOTDET [facility] Comment on above: Result Comment: Crit ical value(s) on tests RAPCOVID called to and read-back by [id number] , at location ONUR by [id number] time called 10/24/19 21:35 This test was performed via the Senexx ID NOW COVID-19 assay and has been authorized by FDA under an Emergency Use Authorization (EUA). The assay is validated for nasopharyngeal (AUTOMATION TECHNICIAN), nasal, and oropharyngeal (OP) direct swabs. [...] Control website: www.cdc.gov/coronavirus. Performed By: #### C D:[id number] #### GORDO C[place], [address], [place] XR CHEST PA/APon 09-23-2019 XR CHEST PA/AP [...] on TueSep 23, 2019 9:12:53 PM EDT [facility] Comment on above: Order Comment: Injur y/Trauma or Illness?:Illness/Other How long have you had these symptoms (acute/chronic)?:Acute Reason for exam?:cough, shortness of breath History of cancer?: Surgeries, chemotherapy, or radiation?: Type of Exam?:Initial Additional signs and symptoms?: XR Chest 1 Viewon 09-23-2019 No evidence of acute cardiopulmonary disease. Workstation ID: [id number] [facility] EXAMINATION: ONE XRAY VIEW OF [...] No evidence of pneumothorax or pleural effusion. [facility] [place] [facility], Jasbir In Kay Speechq - 09/23/2019 9:15 PM [...] of acute cardiopulmonary disease. Workstation ID: [id number] [facility] Vital Signs Date Time Vital Sign Value Performing Clinician Facility 08-08-2024 09:07-0500 Body mass index (BMI) [Ratio] 35.67 kg/m2 Falguni Garcia PA Work Phone: [facility] 08-08-2024 09:07-0500 Body weight 85.64 kg Falguni Garcia PA Work Phone: [facility] 08-08-2024 09:07-0500 Diastolic blood pressure 76 mm[Hg] Falguni Garcia PA Work Phone: [facility] 08-08-2024 09:07-0500 Systolic blood pressure 122 mm[Hg] Falguni Garcia PA Work Phone: [facility] 08-01-2024 13:18-0500 Body mass index (BMI) [Ratio] 35.11 kg/m2 Kuldip Janet DO Work Phone: [facility] 08-01-2024 13:18-0500 Body weight 84.28 kg Kuldip Janet DO Work Phone: [facility] 08-01-2024 13:18-0500 Diastolic blood pressure 72 mm[Hg] Kuldip Janet DO Work Phone: [facility] 08-01-2024 13:18-0500 Systolic blood pressure 120 mm[Hg] Kuldip Janet DO Work Phone: [facility] 07-25-2024 13:30-0500 Body mass index (BMI) [Ratio] 35.17 kg/m2 Falguni Garcia PA Work Phone: [facility] 07-25-2024 13:30-0500 Body weight 84.42 kg Falguni Garcia PA Work Phone: [facility] 01-29-2025 13:30-0500 Diastolic blood pressure 80 mm[Hg] Falguni Pavel PA Work Phone: [facility] 07-25-2024 13:30-0500 Systolic blood pressure 112 mm[Hg] Falguni Guston PA Work Phone: [facility] 07-11-2024 [...] mass index (BMI) [Ratio] 33.63 kg/m2 Falguni Pavel PA Work Phone: [facility] 06-25-2024 16:08-0500 Body weight 80.74 kg Falguni Pavel PA Work Phone: [facility] 06-25-2024 16:08-0500 Diastolic blood pressure 70 mm[Hg] Falguni Guston PA Work Phone: [facility] 06-25-2024 [...] 14:51-0500 Systolic blood pressure 118 mm[Hg] Kuldip Gonzales DO Work Phone: [facility] 05-16-2024 14:34-0500 Body mass index (BMI) [Ratio] 31.77 kg/m2 Falguni Garcia PA Work Phone: [facility] 05-16-2024 14:34-0500 Body weight 76.26 kg Falguni Pavel PA Work Phone: [facility] 05-16-2024 14:34-0500 Diastolic blood pressure 74 mm[Hg] Falguni Guston PA Work Phone: [facility] 05-16-2024 14:34-0500 Systolic blood pressure 120 mm[Hg] Falguni Garcia PA Work Phone: [facility] 05-04-2024 20:23-0500 Hourly Rounding Johnie Buckley [facility] Comment on above: Result Comment: pt ambulates off unit w/ steady gait 05-04-2024 20:18-0500 Hourly Rounding Johnie Buckley [facility] Comment on above: Result Comment: discharge instructions g one over w/ pt at this time. pt verbalizes understanding of all education given and all questions answered by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 information for after-discharge care Follow-up information [...] evaluation of possible pre-hypertension or hypertension. . ([employer] Software was used to transcribe this note) [...] file Gets together: Not on file Attends adventist service: Not on file Active member of [...] Med amoxicillin (AMOXIL) 500 MG capsule Starting [facility] 09/23/2019, Historical Med buPROPion (WELLBUTRIN) 75 MG tablet Starting [facility] 08/30/2019, Historical Med etonogestreL (Nexplanon) 68 mg Impl subdermal implant nexplanon 68 mg impl, Historical Med sertraline (ZOLOFT) 100 MG tablet Starting [facility] 08/30/2019, Historical Med Physical Exam: Vital Signs [...] ED visit): Procedures Piotr Chau MD 09/23/19 2155 Pt presents with [...] BE BASED ON THE PRIMARY CLINICAL RECORDS. [employer] provides no warranty or guarantee of the accuracy or completeness of information in this document.
--- NOTE | 2024-08-10 19:57 | US_ITS ---
[address] [address] Patient Name: SNOW QUEZADA MRN: [id number] date: 1995 Sex: F Assigned Patient Location: [facility] Current Patient Location: Accession/Order Number: [id number] Exam Date: 08/10/2024 20:02 Report Date: 08/11/2024 07:52 At the request of: LONG GARCIA Procedure: US OB BPP w non-stress EXAMINATION: US OB BPP w non-stress HISTORY: POLYHYDRAMINOS IN THIRD TRIMESTER O40.3XX0 COMPARISON: No relevant comparison available. TECHNIQUE: Ultrasound biophysical profile was performed in the radiology department. non-reactive stress testing was performed by nursing staff in the birthing center. FINDINGS: BREATHING MOVEMENTS: 2 GROSS BODY MOVEMENTS: 2 TONE: 2 QUALITATIVE AMNIOTIC FLUID VOLUME: 2 PRESENTATION: CEPHALIC HEART RATE: 139.90 bpm AMNIOTIC FLUID VOLUME: 26.1 cm, polyhydramnios GESTATIONAL AGE: 89 Day Nuchal cord US/US OB BPP w non-stress IMPRESSION: Total biophysical profile score: 8 Polyhydramnios Nuchal cord Electronically authenticated by: KASSIE GARIBAY Date: 08/11/2024 07:52
[2024-08-10 20:36] VITALS: BP 120/68; PULSE 96
== END 2024-08-10 20:55 | disposition home or self-care (01) ==
LOC: US 00:21 → FBC 19:52
PROVIDERS: Visit Provider Physician Assistant
DX: O40.3XX0 Polyhydramnios, third trimester, not applicable or unspecified (principal); Z3A.37 37 weeks gestation of pregnancy
CPT/HCPCS: 76818

== ENCOUNTER 2024-08-12 11:28 | Inpatient (IN) | payer BC, SELFPAY ==
[2024-08-12] VITALS (36 sets, daily range): BP systolic 105–146; BP diastolic 55–91; PULSE 72–108; TEMP 36.3–36.8
--- OUTSIDE RECORDS SUMMARY | 2024-08-12 11:32 | XMS_ITS | CCD ---
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 [place] [address] 96711 Lymphocytes/100 WBC (Bld) 29.0 % Normal 14.0-50.0 [facility] Comment on above: Order Comment: Order Added by Vincent Expert. Performed By: #### 1 0530535, 9391497, 8721775, 9579270 #### [facility] [address] [place] [address] 83254 Lymphocytes/Leukocyte s Auto (Bld) [Pure # fraction] 2.2 E9/L Normal 1.0-4.0 [facility] Comment on above: Order Comment: Order Added by Vincent Expert. Performed By: #### 1 7644382, 4114292, 8615867, 9777604 #### [facility] [address] [place] [address] 48582 Monocytes/100 WBC (Bld) 5.9 % Normal 4.0-14.0 [facility] Comment on above: Order Comment: Order Added by Discern Expert. Performed By: #### 1 4400967, 4644496, 5767741, 1503067 #### [facility] [address] [place] [address] 25411 Monocytes/Leukocytes Auto (Bld) [Pure # fraction] 0.4 E9/L Normal 0.2-1.0 [facility] Comment on above: Order Comment: Order Added by Discern Expert. Performed By: #### 1 4105321, 4279583, 6653460, 1797627 #### [facility] [address] [place] [address] 37138 Neutrophils/100 WBC (Bld) 63.1 % Normal 36.0-75.0 [facility] Comment on above: Order Comment: Order Added by Discern Expert. Performed By: #### 1 1641372, 2569821, 8786883, 4618904 #### [facility] [address] [place] [address] 61623 Neutrophils/Leukocyte s Auto (Bld) [Pure # fraction] 4.7 E9/L Normal 2.0-7.5 [facility] Comment on above: Order Comment: Order Added by Discern Expert. Performed By: #### 1 7509534, 9730012, 2693274, 6486963 #### [facility] [address] [place] [address] 95745 BMPon 06-09-2023 Anion gap [Moles/Vol] 11 mmol/L Normal 6-16 [facility] Comment on above: Performed By: #### 1 7517024, 2085305, 9930516, 4232812 #### [facility] [address] [place] [address] 34574 BUN/Creat Ratio 13 No Units Normal 10-20 [facility] Comment on above: Performed By: #### 1 1786121, 9250876, 1429457, 9902342 #### [facility] [address] [place] [address] Calcium [Mass/Vol] 9.4 mg/dL Normal 8.9-11.1 [facility] Comment on above: Performed By: #### 1 2098614, 0684751, 5080668, 2654411 #### [facility] [address] [place] [address] Chloride [Moles/Vol] 104 mmol/L Normal 101-111 [facility] Comment on above: Performed By: #### 1 7202479, 4462355, 9614905, 6940520 #### [facility] [address] [place] [address] CO2 [Moles/Vol] 27 mmol/L Normal 21-31 [facility] Comment on above: Performed By: #### 1 3832598, 8736683, 6644274, 4273611 #### [facility] [address] [place] [address] Creatinine [Mass/Vol] 0.6 mg/dL Normal 0.5-1.3 [facility] Comment on above: Performed By: #### 1 4247950, 6656404, 6863902, 5250589 #### [facility] [address] [place] [address] Glucose [Mass/Vol] 90 mg/dL Normal 55-199 [facility] Comment on above: Performed By: #### 1 9350500, 0548394, 8667500, 9709459 #### [facility] [address] [place] [address] Potassium [Moles/Vol] 3.9 mmol/L Normal 3.5-5.3 [facility] Comment on above: Performed By: #### 1 1325827, 1803602, 5869589, 0475941 #### [facility] [address] [place] [address] Sodium [Moles/Vol] 138 mmol/L Normal 135-145 [facility] Comment on above: Performed By: #### 1 3529884, 1771298, 7917397, 9007859 #### [facility] [address] [place] [address] Urea nitrogen [Mass/Vol] 8 mg/dL Normal 5-21 [facility] Comment on above: Performed By: #### 1 4749646, 0040140, 1558386, 6980713 #### [facility] [address] [place] [address] BhCG Quanton 06-09-2023 Beta hCG Qnt 32 mIU/mL High 1-3 [facility] Comment on above: Result Comment: 'F N ON < 1 - 3' ' 0.2 - 1 WEEK = 5 TO 50' ' 1 - 2 WEEKS = 50 - 500' ' 2 - 3 WEEKS = 100 - 5000' ' 3 - 4 WEEKS = 500 - 54020' ' 4 - 5 WEEKS = 1000 - 25083' ' 5 - 6 WEEKS = 79820 - 482416' ' 6 - 8 WEEKS = 85967 - 082687' ' 8 - 12 WEEKS = 58719 - 746068' Performed By: #### 1 7846534, 4345841, 6314184, 0185409 #### [facility] [address] [place] [address] CBC w/ Auto Diffon Erythrocyte distribution width (RBC) [Ratio] 14.0 % Normal 10.9-14.2 [facility] Comment on above: Performed By: #### 1 7166506, 9625201, 1685316, 0607257 #### [facility] [address] [place] [address] Hematocrit (Bld) [Volume fraction] 39.5 % Normal 34.0-46.0 [facility] Comment on above: Performed By: #### 1 9302489, 8839465, 4070191, 0374915 #### [facility] [address] [place] [address] Hemoglobin (Bld) [Mass/Vol] 13.2 g/dL Normal 12.0-16.0 [facility] Comment on above: Performed By: #### 1 8774070, 3754103, 8039411, 4132364 #### [facility] [address] [place] [address] MCH (RBC) [Entitic mass] 27.5 pg Normal 27.0-34.0 [facility] Comment on above: Performed By: #### 1 0722712, 2851477, 6911655, 1611819 #### [facility] [address] [place] [address] MCHC (RBC) [Mass/Vol] 33.5 g/dL Normal 31.4-36.0 [facility] Comment on above: Performed By: #### 1 5840117, 5134136, 6925512, 1749757 #### [facility] [address] [place] [address] 75088 MCV (RBC) [Entitic vol] 81.9 fL Normal 80.0-100.0 [facility] Comment on above: Performed By: #### 1 5172607, 1553036, 2148997, 2732360 #### [facility] [address] [place] [address] 35096 Platelet mean volume (Bld) [Entitic vol] 7.2 fL Normal 6.4-10.8 [facility] Comment on above: Performed By: #### 1 0648763, 5896721, 3170844, 8882875 #### [facility] [address] [place] [address] Platelets (Bld) [#/Vol] 304.0 E9/L Normal 150.0-500.0 [facility] Comment on above: Performed By: #### 1 0870044, 3975433, 3852272, 1387669 #### [facility] [address] [place] [address] 05500 RBC (Bld) [#/Vol] 4.8 E12/L Normal 4.3-5.9 [facility] Comment on above: Performed By: #### 1 3395704, 4803436, 9224101, 3686995 #### [facility] [address] [place] [address] WBC corrected for nucl RBC Auto (Bld) [#/Vol] 7.4 E9/L Normal 4.0-11.0 [facility] Comment on above: Performed By: #### 1 8655735, 1667075, 4683743, 8927787 #### [facility] [address] [place] [address] CHEMISTRYOrdered By: SYSTEM SYSTEM on 06-09-2023 Anion [...] 3 - 4 WEEKS = 500 - 76504' ' 4 - 5 WEEKS = 1000 - 16816' ' 5 - 6 WEEKS = 02512 - 461272' ' 6 - 8 WEEKS = 83221 - 307620' ' 8 - 12 WEEKS = 24142 - 733861' Potassium [Moles/Vol] 3.9 mmol/L Normal 3.5 - 5.3 mmol/L [facility] Sodium [Moles/Vol] 138 mmol/L Normal 135 - 145 mmol/L [facility] Urea nitrogen [Mass/Vol] 8 mg/dL Normal 5 - 21 mg/dL [facility] Urea nitrogen/Creatinine [Mass ratio] 13 mg/mg Normal 10 - 20 [facility] Consent for Treatmenton 05-27 Consent for Treatment [id number]#[id number] Normal [facility] Discharge Instructionson Discharge Instructions [id number]#[id number] Normal [facility] ED Clinical Summaryon 2022 ED Clinical Summary [address] [address] ED Clinical Summary Person Information [facility]: [facility] Age[facility] 27 Years : 1995 Sex: Female Language: Irish PCP: ELIESER RODRÍGUEZ Marital Status: Single Phone: [phone] Visit Id: Visit Reason: Vaginal bleeding - [...] 06/09/2023 21:35:20 06/09/2023 21:35:20 06/09/2023 21:35:20 ADDRESS: [address] [place] [address] [id number] [facility] DOC NOTES: MEDICAL INFORMATION: Prescriptions Given: Medications [...] First Trimester Follow up: With: Address: When: [facility], [address] [place] [address] [place] [address] Business (1) In 3 days 06/12/2023 DIAGNOSIS: Threatened miscarriage in early Normal [facility] ED Note-Physicianon 06-09-20 ED Note-Physician Basic [...] hours. 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 Patient voices understanding and is agreeable to plan Disposition Plan Patient Discharge Condition improved, stable Discharge Disposition to home Discharge Prescription List Prescriptions No active prescription medications Follow-up With When Contact Information Kuldip GONZALES In 3 days 06/12/[address] [place] [address]- Business (1) Additional Instructions: Patient Education Vaginal Bleeding During , First Trimester Attestation Patient was treated and evaluated by the Physician Home Care Rn. The attending physician was in the Emergency [...] 18:32:00) Lymph Auto: 29 % (06/09/23 18:32:00) Love Auto: 5.9 % (06/09/23 18:32:00) Eos Auto: 1.1 % (06/09/23 18:32:00) Basophil Auto: 0.9 % (06/09/23 18:32:00) Neutro Absolute: 4.7 E9/L (06/09/23 18:32:00) Lymph Absolute: 2.2 E9/L (06/09/23 18:32:00) Love Absolute: 0.4 E9/L (06/09/23 18:32:00) Eos Absolute: 0.1 E9/L (06/09/23 18:32:00) Basophil Absolute: 0.1 E9/L (06/09/23 18:32:00) Glucose Lvl: 90 mg/dL (06/09/23 18:32:00) BUN: 8 mg/dL ( (more content not included)... Normal [facility] Comment on above: Result Comment: Elec [...] your regular activities. General instructions ? Take ujop-hdv-zsmcoya and prescription medicines only as told by [...] provider. Document Revised: 03/05/2021 Document Reviewed: 03/05/2021 [employer] Patient Education ? 2022 [employer] [facility] ED Patient Summaryon 023 ED Patient Summary [address] [address] Patient Discharge Instructions Person Information Name: ZENAIDA SUTHERLAND Age: 27 Years Arrival Date: 06/09/2023 16:54:49 Discharge Diagnosis: Threatened miscarriage in early Primary Care Physician: MARCOS, ELIESER Provider Information Primary Provider: Fransisco Paulino DO Advanced Manager [employer]:Jasmina Martinez PA-C The exam and treatment you received in the Emergency Department were for an urgent problem and are not intended as complete care. It is important that you follow up with a doctor, nurse practitioner, or physician?s insurance assistant for ongoing care. If your symptoms become worse or you do not improve as expected and you are unable to reach your usual health care provider, you should return to the Emergency Department. We are available 24 hours a day. ZENAIDA SUTHERLAND has been given the following list of patient education materials, prescriptions and follow-up instructions: Follow-up Instructions: With: Address: When: Kuldip JANET [facility], [address] [place] [address] [place] [address] Business (1) In 3 days [...] opioids can be used to help relieve ggzadbhg-el-iedvmx pain and are often prescribed following a [...] with addiction, tell your health hospice care transitions coordinator and ask for guidance (more content not included)... Normal [facility] HEMATOLOGYOrdered By: SYSTEM SYSTEM on 06-09-2023 Basophils/100 [...] 81.9 fL Normal 80.0 - 100.0 fL [facility] HemeAutoSS Platelet mean volume (Bld) [Entitic vol] 7.2 fL Normal 6.4 - 10.8 fL [facility] HemeAutoSS Platelets (Bld) [#/Vol] 304.0 E9/L Normal 150.0 - 500.0 E9/L [facility] HemeAutoSS RBC (Bld) [#/Vol] 4.8 E12/L Normal 4.3 - 5.9 E12/L FT HemeAutoSS WBC corrected for nucl RBC Auto (Bld) [#/Vol] 7.4 E9/L Normal 4.0 - 11.0 E9/L [facility] HemeAutoSS SEROLOGYOrdered By: Juhi flores on 06-09-2023 HCG.beta subunit (U) [Moles/Vol] Positive (06/09/23 5:58 PM) Normal [facility] Man Sero U BetaHcg Qualon 06-09-2023 HCG.beta subunit (U) [Moles/Vol] Positive Normal [facility] Comment on above: Performed By: #### 1 9283553, [id number] #### [facility] [address] [place] [address] UA With Cult Reflexon 2022 Bacteria LM Ql (Urine sed) TRACE Normal Trace [facility] Comment on above: Performed By: #### 1 9301430, 60388840 #### [facility] [address] [place] [address] Bilirubin Ql (U) Negative Normal Negative [facility] Comment on above: Performed By: #### 1 7755409, 27091037 #### [facility] [address] [place] [address] Calcium oxalate crystals LM Ql (Urine sed) Present Normal [facility] Comment on above: Performed By: #### 1 7764011, 99070746 #### [facility] [address] [place] [address] Clarity (U) CLEAR Normal Clear [facility] Comment on above: Performed By: #### 1 6667162, 04462103 #### [facility] [address] [place] [address] Color (U) YELLOW Normal Yellow [facility] Comment on above: Performed By: #### 1 9600897, 51238295 #### [facility] [address] [place] [address] Crystals LM Ql (Urine sed) Present Normal [facility] Comment on above: Performed By: #### 1 2006364, 58904838 #### [facility] [address] [place] [address] Epithelial cells.squamous LM.HPF (Urine sed) [#/Area] 3-4 Normal 0-2 [facility] Comment on above: Performed By: #### 1 6199036, 18965994 #### [facility] [address] [place] [address] Glucose Test strip (U) [Mass/Vol] Negative Normal Negative [facility] Comment on above: Performed By: #### 1 8094096, 04446556 #### [facility] [address] [place] [address] Hemoglobin Ql (U) 2+ Abnormal Negative [facility] Comment on above: Performed By: #### 1 1214779, 65109413 #### [facility] [address] [place] [address] Ketones (U) [Mass/Vol] TRACE Abnormal Negative [facility] Comment on above: Performed By: #### 1 4679686, 78787506 #### [facility] [address] [place] [address] Tobin.plasma/Lithiu m.RBC (Bld) [Mass ratio] 0-3 Normal 0-3 [facility] Comment on above: Performed By: #### 1 7034897, 18173620 #### [facility] [address] [place] [address] Mucus Ql (Urine sed) 2+ Normal [facility] Comment on above: Performed By: #### 1 2090305, 73244224 #### [facility] [address] [place] [address] Nitrite Ql (U) Negative Normal Negative [facility] Comment on above: Performed By: #### 1 3161639, 67768576 #### [facility] [address] [place] [address] pH (U) 6.0 [pH] Invalid Interpretation Code 5.0-9.0 [facility] Comment on above: Performed By: #### 1 4191267, 88140134 #### [facility] [address] [place] [address] Protein (U) [Mass/Vol] Negative Normal Negative [facility] Comment on above: Performed By: #### 1 5801759, 86413533 #### [facility] [address] [place] [address]90[address] Specific gravity (U) [Rel density] >=1.030 Invalid Interpretation Code 1.005-1.030 [facility] Comment on above: Performed By: #### 1 2646313, 72220582 #### [facility] [address] [place] [address] Type of Urine collection method Clean Catch Normal [facility] Comment on above: Performed By: #### 1 7780835, 26411328 #### [facility] [address] [place] [address] 55518 Urobilinogen Qn (U) 0.2 {Gene'U}/dL Normal 0.0-1.0 [facility] Comment on above: Performed By: #### 1 0344779, 57550363 #### [facility] [address] [place] [address] WBC Auto Ql (U) Negative Normal Negative [facility] Comment on above: Performed By: #### 1 7603706, 49889427 #### [facility] [address] [place] [address] WBC LM.HPF (Urine sed) [#/Area] 0-5 Normal 0-5 [facility] Comment on above: Performed By: #### 1 7461474, 14712894 #### [facility] [address] [place] [address] URINALYSISOrdered By: Juhi rod on 06-09-2023 Bacteria [...] Interpretation Code Negative [facility] UA Auto SS Tobin.plasma/Lithiu m.RBC (Bld) [Mass ratio] 0-3 /HPF Normal [...] Desc Clean Catch (06/09/23 5:58 PM) Normal [facility] UA Auto SS Urobilinogen Qn (U) 0.0028862 {Gene'U}/dL Normal 0.0 - 1.0 EU/dL [facility] UA Auto SS WBC Auto Ql (U) Negative (06/09/23 5:58 PM) Normal Negative [facility] UA Auto SS WBC LM.HPF (Urine sed) [#/Area] 0-5 /HPF Normal 0-5/HPF [facility] UA Auto SS eGFRon 06-09-2023 GFR/1.73 sq M.predicted among non-blacks MDRD (S/P/Bld) [Vol rate/Area] mL/min/{1.73_m2} Normal >=59 [facility] Comment on above: Order Comment: Order added by Discern Expert. Performed By: #### 1 8366350, 2027282, 0170014, 3727464 #### [facility] [address] [place] [address] XR ankle RT min 3V*on 2021 XR ankle RT min 3V* [facility] Main [place] [address] [place] [address] XRay Report Signed Patient: Zenaida Sagastume MR#: [id number] 9 : 1995 Acct:[id number] Age/Sex: 26 / F ADM Date: 01/03/22 Loc: [id number] [facility]: Kraig QUINTANAC Copies to: Kraig Haynes Ordering Provider: Kraig Haynes Date of Service: 01/03/22 XR/XR ankle RT min 3V*: Injury of right ankle, 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 3views Rightankle COMPARISON:None HISTORY: RIGHT ankle injury No fracture, dislocation or focal soft tissue abnormality seen. XR/XR ankle RT min 3V* IMPRESSION: No acute findings. Impression dictated by: Efraní Gary M.D.01/03/2022 12:18 PM Dictation Location: [place] [address] Transcribed By: [facility] 01/03/22 1218 Dictated By: Efraín Gary DO 01/03/22 1217 Signed By: 01/03/22 1218 Normal [facility] XR ankle RT min 3V* [facility] Other XR ankle RT min 3V* [facility] [employer] Other XR ankle RT min 3V* [facility] [employer] Other XR ankle RT min 3V* DEEPAK [place]ow [address] [employer] Other XR ankle RT min 3V* XRay Report [facility] Other XR ankle RT min 3V* Signed [employer] Other XR ankle RT min 3V* Patient: Zenaida Sagastume MR#: [id number] [employer] Other XR ankle RT min 3V* 9 [employer] Other XR ankle RT min 3V* : 1995 Acct:[id number] [employer] Other XR ankle RT min 3V* Age/Sex: 26 / F ADM Date: 01/03/22 [employer] Other XR ankle RT min 3V* Loc: [id number] [facility]: [facility] [employer] Other XR ankle RT min 3V* Attending Dr: Kraig Haynes PA-C [employer] Other XR ankle RT min 3V* Copies to: Kraig Haynes [employer] Other XR ankle RT min 3V* Ordering Provider: Kraig Haynes [employer] Other XR ankle RT min 3V* Date of Service: 01/03/22 [employer] Other XR ankle RT min 3V* XR/XR ankle RT min 3V*: Injury of right ankle, 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 [employer] Other XR ankle RT min 3V* 3views Rightankle [employer] Other XR ankle RT min 3V* COMPARISON:None [employer] Other XR ankle RT min 3V* HISTORY: RIGHT ankle injury [employer] Other XR ankle RT min 3V* No fracture, dislocation or focal soft tissue abnormality seen. [employer] Other XR ankle RT min 3V* XR/XR ankle RT min 3V* [employer] Other XR ankle RT min 3V* IMPRESSION: No acute findings. [employer] Other XR ankle RT min 3V* Impression dictated by: Efraín Gary M.D.01/03/2022 12:18 PM [employer] Other XR ankle RT min 3V* Dictation Location: [place] [address] [employer] Other XR ankle RT min 3V* Transcribed By: ROSS 01/03/22 1218 [employer] Other XR ankle RT min 3V* Dictated By: Efraín Gary DO 01/03/22 1217 [employer] Other XR ankle RT min 3V* Signed By: [employer] Other XR ankle RT min 3V* 01/03/22 121 No [employer] Other ED Pat Eduon 10-25-2019 ED Pat Edu [place] [id number] Emergency Department Discharge Instructions ZENAIDA SAGASTUME , Please provide this information to your Primary Care/Specialist Name : ZENAIDA SAGASTUME Current Date : 10/24/2019 22:11:44 : 1995 Primary Care Physician : Apolonia Mayer CNP Diagnosis: Follow-Up Instructions: ZENAIDA SAGASTUME has been given these follow-up instructions: FOLLOW-UP APPOINTMENTS: Provider: Specialty: Address: Date: Apolonia Mayer [address] [address] (1) 10 to 14 days Comment: Call for an Appointment Provider: Specialty: Address: Date: Return to Emergency Department Follow-up as needed Comment: For new or concerning symptoms Laboratory Orders: Name: Status: Coronavirus (COVID-19/SARS-CoV- 2) RAPID Completed Radiology Orders: None Ordered Diagnostic Tests: None Ordered Procedure(s) and Patient Education(s) : Work Release 3 Days COVID19 ([id number]); COL COVID19 Caring for Yourself at Home (Suspected or Confirmed) (Custom); COL COVID19 Self Isolation (Custom) EMERGENCY SERVICES MEDICATION LIST [facility] Emer[facility] Name ZENAIDA SAGASTUME MRN (COL)-[id number] PLEASE READ THE FOLLOWING REGARDING YOUR MEDICATIONS [...] doses are changed, or new medications (including twtr-ayu-nculiwu products) are added. If you have any [...] UNTIL YOU TALK TO YOUR DOCTOR None [place] [address] [place], [place] [address] Emergency Department Discharge Instructions Name: ZENAIDA SAGASTUME Current Date: 10/24/2019 22:11:44 : 1995 Primary Physician: Apolonia Mayer CNP We would like to thank you for choosing [facility] for your emergency medical needs. [...] and the health of those around you. [facility] offers many resources to help with smoking cessation. Call the [place] Tobacco Quit Line at 1-214-SKUHNOW ( ). High blood pressure: Your screening [...] deadly infections. Discuss this with your child's sales representative gas service, or Public Health Department. Your family practice doctor can determine if you need pneumonia or flu vaccine. The [facility] can be reached at . Substance Abuse Program: Concerns with addiction to alcohol, benzodiazepines (Ativan or Xanax) and Opiates (Heroin, Percocet, OxyContin, Methadone or Fentanyl)? [facility] offers an inpatient Substance Abuse Program to help treat the symptoms associated with medical detoxification of addictive substances. The new program offers care for non- adults (18 and older) looking to break the chain to addictive chemicals. The Substance Abuse Program is a voluntary inpatient admission and it starts with a pre-screening phone call to a oncology social worker. During the call, goals and objectives for recovery and how the patient will transition to outpatient care will be established. Please call [phone] to get help today. Domestic Violence: If you are a victim of domestic violence (physical, verbal, or emotional), you are not alone. Discuss this with your physician or a friend and call the [place] Domestic Violence Hotline or [place] Domestic Violence Hotline for assistance and support. [...] physician, call the Physician Referral Line at (324) 336-YYMH ([phone]). Suicide Hotline: Your mental and emotional well-being is important. If you are in a mental health crisis or are having thoughts of suicide, please call the [facility] suicide hotline, anytime day or night, at 6-333-327-VEOK (8505). Community Sweat Band Separator: You may be contacted by your local fire department for a follow up visit from a community civil engineering manager. The community civil engineering manager can help with a home safety check; follow up care, and general home care management. Pharmacy Information: Below is a list of 24 hour pharmacies that we are aware of. We suggest that you call the specific pharmacy for their hours before traveling to a location. Hours may vary on holidays. [facility] [place] [address] [place], [place] [phone] [address] [place], [place] [address] [phone] [address] [place], [place] [address] [phone] [address], [place] [phone] [address] [place], [place] [phone] [address] [place], [place] [phone] [place] [phone] Take all medications as directed. If you need prescription assistance, contact the following agencies: ?? Partnership for Prescription Assistance at or www.pparx.org ?? [place] at or www.[place]iobestrx.org ?? www.[employer] is a site with many valuable coupons Patient Education Materials ZENAIDA SAGASTUME has been given the following patient education materials: [facility] Emergency Department [address] [place] [address] Work Release Form This notice verifies that [...] Your test is POSITIVE. Please call [facility] coronavirus helpline at with any additional questions [...] clean your hands with an alcohol-based hand tonal regulator that contains at least 60% alcohol covering [...] clean your hands with an alcohol-based hand tonal regulator that contains at least 60% alcohol, covering [...] isolation precautions should be made on a jvov-ac-coin basis, in consultation with healthcare providers and state and local health departments. For additional information, use the link or scan the QR code below: https://www.cdc.gov /coronavirus/2019-n cov/xj-vrg-ggj-sick /khkzk-cepi-xdte.ht ml?CDC_AA_refVal=ht tps%3A%2F%2Fwww.cdc .gov%2Fcoronavirus% 8U5050-ngzf%2Fabout %7Qwgkvc-weli-dato. html COVID-19 Self Isolation How to self-isolate [...] your room every day with a household mold sheet cleaner or disinfectant. Don't ?? Do not go to work, school, rastafari services or public areas. ?? Do not [...] should be collected and put in a house mover and hands washed properly afterwards. ?? If you don't have a house mover: wash in hot soapy water, wearing rubber [...] Many cleaning and disinfectant products sold in [employer] can kill coronavirus on surfaces. ?? Clean [...] <><><><><><><> Patient Visit Summary Signature ZENAIDA SAGASTUME has been given the following list of patient education materials, prescriptions and follow-up instructions: MAITE Duckworth BRIANNA G, have received the above patient education materials/instructi ons and have verbalized understanding: _ Date _ Time Patient Signature _ Date _ Time Provider Signature Normal [facility] Coronavirus (COVID-19/SARS-C oV-2) RAPIDon 10-24-2019 SARS-CoV-2 DETECTED Critically abnormal NOTDET [facility] Comment on above: Result Comment: Crit ical value(s) on tests RAPCOVID called to and read-back by [id number] , at location ONUR by [id number] time called 10/24/19 21:35 This test was performed via the [facility] [employer] COVID-19 assay and has been authorized by FDA under an Emergency Use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
[2024-08-12 12:03] LABS: Bilirubin Urine NEGATIVE (NEGATIVE); Blood Urine TRACE-L (NEGATIVE); Clarity Urine CLEAR (CLEAR); Color Urine LT. YELLOW (YELLOW); Glucose Urine UA NEGATIVE (NEGATIVE); Ketones Urine NEGATIVE (NEGATIVE); Leukocyte Esterase Urine NEGATIVE (NEGATIVE); Nitrite Urine NEGATIVE (NEGATIVE); Protein Urine NEGATIVE (NEG/TRACE); Urobilinogen Urine 0.2 EU/dL (0.2-1.0); pH Urine 6.5 (5.0-9.0)
[2024-08-12 12:12] LABS: Bacteria Urine NONE SEEN #/HPF (NONE SEEN); RBC Urine 0-2 #/HPF (0-2); Squamous Epithelial Cell Urine MODERATE #/LPF (NONE/RARE); Urine Microscopic Indicated YES; WBC Urine NONE SEEN #/HPF (NONE SEEN)
[2024-08-12 12:15] LABS: Mucus Urine SMALL (NONE SEEN); Urine Culture Indicated NO
[2024-08-12 12:16] LABS: Amnisure POSITIVE (NEGATIVE); Internal Control Within Normal Limits
[2024-08-12] MEDS: OXYTOCIN/0.9 % SODIUM CHLORIDE 10 UNITS/500 ML PLAST..BAG 6 UNIT IV (12:45)
[2024-08-12] MEDS: 0.9 % SODIUM CHLORIDE 1,000 ML 125 ML IV (12:45)
[2024-08-12 12:53] LABS: Hematocrit 32.4 % (36.0-48.0); Hemoglobin 10.5 g/dL (12.0-16.0); Mean Corpuscular HGB Conc 32.4 g/dL (29.9-35.2); Mean Corpuscular Hemoglobin 25.4 pg (26.7-34.0); Mean Corpuscular Volume 78.3 fL (81.0-99.0); Mean Platelet Volume 10.9 fL (9.5-13.5); Platelet Count 229 10^3/uL (150-450); Red Blood Count 4.14 10^6/uL (4.20-5.40); Red Cell Distribution Width 15.2 % (11.0-15.0); White Blood Count 9.5 10^3/uL (4.0-11.0)
[2024-08-12 13:01] LABS: Amphetamine Screen Urine NEGATIVE (NEGATIVE); Barbiturates Screen Urine NEGATIVE (NEGATIVE); Benzodiazepines Screen Urine NEGATIVE (NEGATIVE); Buprenorphine Screen Urine NEGATIVE (NEGATIVE); Cannabinoid Screen Urine NEGATIVE (NEGATIVE); Cocaine Screen Urine NEGATIVE (NEGATIVE); Methadone Screen Urine NEGATIVE (NEGATIVE); Methamphetamines Screen Urine NEGATIVE (NEGATIVE); Opiate Screen Urine NEGATIVE (NEGATIVE); Oxycodone Screen Urine NEGATIVE (NEGATIVE); Phencyclidine Screen Urine NEGATIVE (NEGATIVE); Tricyclic Antidepressant Urine NEGATIVE (NEGATIVE)
[2024-08-12] MEDS: NALBUPHINE HCL 10 MG/ML AMPULE IV (18:03)
[2024-08-12] MEDS: 0.9 % SODIUM CHLORIDE 1,000 ML 1000 ML IV (18:28)
[2024-08-12] MEDS: ROPIVACAINE HCL/PF 400 MG/200 ML PREMIX 6 MG EPIDURAL (19:04)
[2024-08-12] MEDS: OXYTOCIN/0.9 % SODIUM CHLORIDE 20 UNITS/1,000 ML PLAST..BAG 125 UNIT IV (20:41)
--- NOTE | 2024-08-12 20:58 | PM.OBPRCVD ---
Procedure Intrapartal events: None Delivery augmentation: pitocin Delivery monitor: external FHT and external uterine Route of delivery: Episiotomy Description: left mediolateral L&D Laceration Description: perineal - 3rd degree Delivery repair: Vicryl Estimated blood loss (mL): 300 Anesthesia type: Epidural Disposition: floor Delivery date: 08/12/24 Gender: female presentation: vertex Placental delivery description: Spontaneous cord description: 3 Vessels
[2024-08-12] MEDS: IBUPROFEN 600 MG TABLET PO (21:34)
[2024-08-12] MEDS: BENZOCAINE/MENTHOL 85 GRAM SPRAY BOTTLE 1 APPLIC TOPICAL (21:34)
[2024-08-12] MEDS: GLYCERIN/WITCH HAZEL PADS 1 PAD TOPICAL (21:34)
[2024-08-13] VITALS (8 sets, daily range): BP systolic 112–147; BP diastolic 61–94; PULSE 90–100; TEMP 36.1–36.7
[2024-08-13] MEDS: IBUPROFEN 600 MG TABLET PO ×3 (06:25→20:39)
[2024-08-13 06:44] LABS: Basophils Percent Auto 0.2 % (0.2-2.0); Eosinophils Percent Auto 0.2 % (0.9-7.0); Hematocrit 26.7 % (36.0-48.0); Hemoglobin 8.6 g/dL (12.0-16.0); Immature Granulocytes Abs Auto 0.09 10^3/uL (0.00-0.03); Immature Granulocytes Pct Auto 0.7 % (0.0-0.5); Lymphocytes Absolute Auto 2.1 10^3/uL (1.2-3.8); Lymphocytes Percent Auto 15.8 % (20.5-60.0); Mean Corpuscular HGB Conc 32.2 g/dL (29.9-35.2); Mean Corpuscular Hemoglobin 25.5 pg (26.7-34.0); Mean Corpuscular Volume 79.2 fL (81.0-99.0); Mean Platelet Volume 9.9 fL (9.5-13.5); Monocytes Absolute Auto 1.1 10^3/uL (0.3-0.8); Monocytes Percent Auto 7.9 % (1.7-12.0); Neutrophils Percent Auto 75.2 % (43.0-75.0); Platelet Count 211 10^3/uL (150-450); Red Blood Count 3.37 10^6/uL (4.20-5.40); Red Cell Distribution Width 15.4 % (11.0-15.0); White Blood Count 13.3 10^3/uL (4.0-11.0)
--- NOTE | 2024-08-13 07:47 | P.OBPN_ITS ---
OB - PN: Subj Subjective Patient comments: no complaints and pain well controlled [place] status: doing well Exam Constitutional Vital Signs, click to edit/add: Last Vital Signs Temp 97.9 F 08/13/24 03:06 Pulse 96 H 08/13/24 02:24 Resp 16 08/13/24 03:07 BP 147/86 H 08/13/24 02:24 O2 Del Method Room Air 08/13/24 03:07 Documenting provider has reviewed patient's vital signs: yes Common normals: no apparent distress Respiratory Common normals: normal respiratory effort and clear to auscultation bilaterally Cardio Common normals: regular rate and regular rhythm GI Common normals: Normal to inspection, nondistended, normoactive bowel sounds present Extremity Common normals: no clubbing, cyanosis or edema and no calf tenderness Results Labs Labs: Short CBC 08/12/24 08/13/24 Range/Units 12:35 06:29 WBC 9.5 13.3 H (4.0-11.0) 10^3/uL Hgb 10.5 L 8.6 L (12.0-16.0) g/dL Hct 32.4 L 26.7 L (36.0-48.0) % Plt Count 229 211 (150-450) 10^3/uL Urine 08/12/24 Range/Units 11:35 Urine Color Lt. yellow (YELLOW) Urine Clarity Clear (CLEAR) Urine pH 6.5 (5.0-9.0) Ur Specific [place] 1.020 (1.005-1.025) Urine Protein Negative (NEG/TRACE) mg/dL Urine Glucose (UA) Negative (NEGATIVE) mg/dL OB - PN: A/P Plan - Vaginal Delivery day: 1 Plan: routine care Time Spent with Patient Time: Total time spent is greater than 50% in coordination of care (as documented) at patient's floor/unit and/or counseling patient: Total time spent with greater than 50% in coordination of care (as documented) at patient's floor/unit and/or counseling patient: less than 15 minutes
[2024-08-13] MEDS: ACETAMINOPHEN 325 MG TABLET 650 MG PO ×3 (08:17→20:40)
[2024-08-13] MEDS: DOCUSATE SODIUM 100 MG CAPSULE PO ×2 (08:17→23:26)
[2024-08-13] MEDS: SERTRALINE HCL 100 MG TABLET 200 MG PO (23:26)
[2024-08-13] MEDS: BUPROPION HCL 150 MG XL TABLET 24H PO (23:26)
[2024-08-13] MEDS: IRON POLYSACCHARIDE COMPLEX 180 MG CAPSULE PO (23:26)
[2024-08-14] MEDS: IBUPROFEN 600 MG TABLET PO ×2 (03:38→10:32)
[2024-08-14] MEDS: ACETAMINOPHEN 325 MG TABLET 650 MG PO (03:39)
[2024-08-14 08:10] VITALS: TEMP 35.9
[2024-08-14] MEDS: DOCUSATE SODIUM 100 MG CAPSULE PO (08:13)
[2024-08-14 08:14] VITALS: BP 105/66; PULSE 97; TEMP 35.8; TEMP 35.9
[2024-08-14 08:20] VITALS: TEMP 36.5
--- NOTE | 2024-08-14 09:23 | P.OBPN_ITS ---
OB - PN: Subj Subjective Patient comments: no complaints [place] status: doing well Exam Constitutional Vital Signs, click to edit/add: Last Vital Signs Temp 96.4 F L 08/14/24 08:14 Pulse 97 H 08/14/24 08:14 Resp 16 08/14/24 08:10 BP 105/66 08/14/24 08:14 O2 Del Method Room Air 08/14/24 08:10 Documenting provider has reviewed patient's vital signs: yes Common normals: no apparent distress Orientation/consciousness: Yes awake, Yes oriented to person, Yes oriented to place and Yes oriented to time HENMT Common normals: normocephalic Eye Common normals: EOMs intact bilaterally General eye: normal appearance of both eyes Neck & C-Spine Common normals: full ROM Lymph Lymphatic: no lymphadenopathy noted Chest Common normals: inspection of chest normal Respiratory Common normals: normal respiratory effort Effort & inspection: able to speak in complete sentences Auscultation: clear to auscultation bilaterally Cardio Common normals: regular rate and regular rhythm Rate: regular rate Rhythm: regular rhythm GI Common normals: Normal to inspection, nondistended, normoactive bowel sounds present Inspection: normal to inspection Palpation: soft Common normals: no CVA tenderness Back & Pelvis Common normals: no CVA tenderness Extremity Common normals: normal to inspection Neuro Common normals: oriented x3 Sensorium/orientation: awake, alert, oriented to person, oriented to place and oriented to time Psych Common normals: mental status grossly normal, thought process normal, cooperative, affect normal, speech normal, activity/motor behavior normal, denies hallucinations, denies homicidal ideation and denies suicidal ideation Attitude: calm OB - PN: A/P Plan - Vaginal Delivery day: 2 Plan: discharge home Time Spent with Patient Time: Total time spent is greater than 50% in coordination of care (as documented) at patient's floor/unit and/or counseling patient: Total time spent with greater than 50% in coordination of care (as documented) at patient's floor/unit and/or counseling patient: less than 15 minutes
== END 2024-08-14 15:15 | disposition home or self-care (01) | DRG 768 ==
PROVIDERS: Admitting Provider Obstetrics & Gynecology; Visit Provider Obstetrics & Gynecology
DX: O70.20 Third degree perineal laceration during delivery, unspecified (principal); Z37.0 Single live birth; Z3A.38 38 weeks gestation of pregnancy
CPT/HCPCS: 36415; 51701; 59050; 59410; 80307; 81001; 84112; 85025; 85027; 86850; 86900; 86901; J2300; J2795

== ENCOUNTER 2024-08-20 08:20 | Outpatient (OUT) | payer BC, SELFPAY ==
--- NOTE | 2024-08-20 10:27 | PC.NURSE ---
Adrian Estevez, and 8 day old Ladonna arrive for follow-up. Zenaida states feels well and has no complaints for recovery. No discomfort reported, minimal vaginal bleeding and feels well. States not sure if breast feeding is going well or not States PEDS gave her formula on day 3 to use after feedings. Has only been pumping When needed and pumps 300 mls daily. Has been giving pumped milk now that formula is gone. Reviewed that baby is feeding every 2-3 hours, spending 5-25 minutes at the breast. Some feeds are better than others Has been using the shield since the hospital as well. Zenaida with VSS and assessment WNL. Baby Ladonna pink with easy respirations. VSS and assessment WNL. Parents report 5-6 wets alone and at least 3-4 yellow stools. Some diapers have both as reported by mom. Ladonna rooting on hands, mom offers to breast feed. Offered breast without shield, and latches well. Does need stimulation to continue sucking after latch. Spends 5 min on left breast before becoming fussy and pulling away. Mom reports Left side is not her favorite side Baby to right breast, difficult to latch due to baby elevating and mom becoming very anxious. Shield used for latch and baby nurses 15 minutes fair to well. was given 45ml prior to arrival to appointment. Mom to return 08/24/2024 for further support. Will feed at the breast every feeding, (even at night), and will pump 10-15 minutes after effort at the breast. Dad will offer pumped milk as needed while mom pumps. Will offer breast without shield, and will use shield when mom and baby become very frustrated. Zenaida states I worry a lot and easily become frustrated/overwhelmed Adrian verifies and is available to her for support. No further concerns voiced, family leaves together.
[2024-08-20 10:34] VITALS: BP 115/79; PULSE 81; TEMP 36.4; O2SAT 97
== END 2024-08-20 10:52 | disposition home or self-care (01) ==
LOC: FBCO 08:21
PROVIDERS: Visit Provider Obstetrics & Gynecology
DX: Z39.1 Encounter for care and examination of lactating mother (principal)

== ENCOUNTER 2025-02-19 20:26 | Outpatient (REF) | payer BC, SELFPAY ==
--- OUTSIDE RECORDS SUMMARY | 2025-02-19 11:00 | XMS_ITS | Encounter Summary ---
Author Organization [facility] Address [address] [place] [address] Care Team Providers Care Gas Treater Name Role Phone Unavailable Primary Care Provider Unavailabl e Reason for Referral * Medications - Closed Specialty Diagnoses / Procedures Referred By Yina t Referred To Contact Diagnoses Post depression Falguni Zhao PA [address] [place] [address] Phone: tel: fax: Referral ID Status Reason Start Date Expiration Date Visits Re quested Visits Authorized [id number] Closed 1 1 Reason for Visit * Reason Comments Well Women Visit Encounter Details Date Type Department Care Team (Latest Contact Info) Description 02/19/2025 11:00 AM EDT Procedure Visit [facility] [place] [facility] [address] [place] [phone] Falguni Zhao PA [address] [place], [facility] Well woman exam with routine gynecological exam; Post depression Social History Tobacco Use Types Packs/Day Years Used Date Smoking Tobacco: Never Smokeless Tobacco: Never Comments No Sex and Gender Information Value Date Recorded Sex Assigned at Female 01/10/2023 6:27 PM EDT Legal Sex Female 12:17 PM EDT Gender Identity Female 01/10/2023 6:27 PM EDT Sexual Orientation Straight 01/10/2023 6: 27 PM EDT documented as of this encounter Last Filed Vital Signs Vital Sign Reading Time Taken Comments Blood Pressure 108/70 02/19/2025 11:35 AM EDT Pulse - - Temperature - - Respiratory Rate - - Oxygen Saturation - - Inhaled Oxygen Concentration - - Weight 71.9 kg (158 lb 7 oz) 02/19/2025 11:35 AM EDT Height - - Body Mass Index 29.94 01/11/2023 2:36 PM EDT documented in this encounter Progress Notes * DYLON Jackson - 02/19/2025 11:00 AM EDT Reason for Appointment: Patient ID: Falguni Sutherland is a 29 y.o. female who presents for [facility] Women Visit Patient presents today for Annual Exam. MEDICATIONS Current Outpatient Medications Medication Instructions buPROPion XL (WELLBUTRIN XL) 150 mg, Every morning sertraline (ZOLOFT) 250 mg, Daily Zuranolone (Zurzuvae) 25 MG capsule 2 capsules, Oral, Daily ALLERGIES No Known Allergies PROBLEMS Active Ambulatory Problems Diagnosis Date Noted No Active Ambulatory Problems Resolved Ambulatory Problems Diagnosis Date Noted No Resolved Ambulatory Problems Past Medical History: Diagnosis Date Miscarriage ([facility]) 06/09/2023 HISTORY PAST MEDICAL HISTORY SOCIAL HISTORY Past Medical History: Diagnosis Date Miscarriage ([facility]) 06/09/2023 Social History Tobacco Use Smoking status: [...] Objective: Physical Exam Constitutional: Appearance: Normal appearance. Genitourinary: Right Adnexa: not tender and no mass present. Left Adnexa: not tender and no mass present. No cervical discharge. Breasts: Breasts are soft. Right: Normal. Left: Normal. HENT: Head: Normocephalic. Nose: Nose normal. Mouth/Throat: Mouth: Mucous membranes are moist. Cardiovascular: Rate and Rhythm: Normal rate. Pulmonary: Effort: Pulmonary effort is normal. Abdominal: General: Bowel sounds are normal. Palpations: Abdomen is soft. Musculoskeletal: General: Normal range of motion. Cervical back: Normal range of motion. Neurological: General: No focal deficit present. Mental Status: She is alert. Skin: General: Skin is warm and dry. Psychiatric: Mood and Affect: Mood normal. Vitals and nursing note reviewed. Exam conducted with a pediatric dental assistant present. Vitals: Estimated body mass index is 29.94 kg/m?? as calculated from the following: Height as of 01/11/23: 5' 1 . Weight as of this encounter: 158 lb 7 oz. BP: 108/70 Patient's last menstrual period was 02/10/2025. ASSESSMENT & PLAN ICD-10-CM 1. 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 Patient states she is doing well and has no complaints. Pap was obtained without difficulty. No orders of the defined types were placed in this encounter. Follow Up: Patient is to return in one year for annual unless needed otherwise. Documented by DYLON Jackson on behalf of: DYLON Jackson documented in this encounter Plan of Treatment Upcoming Encounters Date Type Department Care Team (Late st Contact Info) Description 02/24/2026 9:00 AM EDT Procedure Visit [facility] [address] [place] [phone] Kuldip Gonzales DO [address] [place] [address] Scheduled Orders Name Type Priority Associated Diagnoses Orde r Schedule Pap Smear Pathology and Cytology Routine Well woman exam with routine gynecological exam Ordered: 02/19/2025 documented as of this encounter Visit Diagnoses Diagnosis Well woman exam with routine gynecological exam Routine gynecological examination Post depression Mental disorders of mother, complicating , childbirth, or the puerperium, unspecified as to episode of care documented in this encounter
--- OUTSIDE RECORDS SUMMARY | 2025-02-19 20:29 | XMS_ITS | Encounter Summary ---
Author Organization [facility] Address [address] [place] [address] Care Team Providers Care Exchange Consultant Name Role Phone Unavailable Primary Care Provider Unavailabl e Encounter Details Date Type Department Care Team (Late st Contact Info) Description 08/12/2024 Abstract [facility] [address] [place] [address] Kuldip Gonzales DO [address] [place], [place] [address] Social History Tobacco Use Types Packs/Day Years Used Date Smoking Tobacco: Never Smokeless Tobacco: Never Comments Yes Sex and Gender Information Value Date Recorded Sex Assigned at Female 01/10/2023 6:27 PM EDT Legal Sex Female 12:17 PM EDT Gender Identity Female 01/10/2023 6:27 PM EDT Sexual Orientation Straight 01/10/2023 6: 27 PM EDT documented as of this encounter Plan of Treatment Upcoming Encounters Date Type Department Care Team (Late st Contact Info) Description 02/24/2026 9:00 AM EDT Procedure Visit [facility] [address] [place] [phone] Kuldip Gonzales DO [address] [place], [place] [address] documented as of this encounter Visit Diagnoses Not on filedocumented in this encounter
--- OUTSIDE RECORDS SUMMARY | 2025-02-19 20:29 | XMS_ITS | Encounter Summary ---
Author Organization [facility] Address [address] [place] [address] Care Team Providers Care All Source Collection Manager Name Role Phone Unavailable Primary Care Provider Unavailabl e Encounter Details Date Type Department Care Team (Late st Contact Info) Description 01/20/2024 Abstract [facility] [address] [place] [address] Kuldip Gonzales DO [address] [place], [place] [address] Social History Tobacco Use Types Packs/Day Years [...] EDT Procedure Visit [facility] [address] [place] [address] Kuldip Gonzales DO [address] [place], [place] [address] documented as of this encounter Visit Diagnoses Not on filedocumented in this encounter
--- OUTSIDE RECORDS SUMMARY | 2025-02-19 20:29 | XMS_ITS | Encounter Summary ---
Author Organization [facility] Address [address] [place] [address] Care Team Providers Care Shingle Bolt Cutter Name Role Phone Unavailable Primary Care Provider Unavailabl e Encounter Details Date Type Department Care Team (Late st Contact Info) Description 10/01/2024 Abstract [facility] [address] [place] [address] Kuldip Gonzales DO [address] [place] [address] [place], [place] [address] Social History Tobacco Use Types Packs/Day Years [...] EDT Procedure Visit [facility] [address] [place] [address] Kuldip Gonzales DO [address] [place], [place] [address] documented as of this encounter Visit Diagnoses Not on filedocumented in this encounter
--- OUTSIDE RECORDS SUMMARY | 2025-02-19 20:29 | XMS_ITS | Encounter Summary ---
Author Organization [facility] Address [address] [place] [address] Care Team Providers Care Comprehensive Ophthalmologist Name Role Phone Unavailable Primary Care Provider Unavailabl e Encounter Details Date Type Department Care Team (Late st Contact Info) Description 01/24/2024 Abstract [facility] [address] [place] [address] Kuldip Gonzales DO [address] [place], [place] [address] Social History Tobacco Use Types Packs/Day Years [...] EDT Procedure Visit [facility] [address] [place] [phone] Kuldip Gonzales DO [address] [place], [place] [address] documented as of this encounter Visit Diagnoses Not on filedocumented in this encounter
--- OUTSIDE RECORDS SUMMARY | 2025-02-19 20:29 | XMS_ITS | Encounter Summary ---
Author Organization [facility] Address [address] [place] [address] Care Team Providers Care Senior Staff Specialized Employment Name Role Phone Unavailable Primary Care Provider Unavailabl e Encounter Details Date Type Department Care Team (Late st Contact Info) Description 08/12/2024 Abstract [facility] [address] [place] [address] Kuldip Gonzales DO [address] [place] [address] [place], [place] [address] Social History Tobacco Use Types Packs/Day Years [...] EDT Procedure Visit [facility] [address] [place] [phone] Kuldip Gonzales DO [address] [place], [place] [address] documented as of this encounter Visit Diagnoses Not on filedocumented in this encounter
--- OUTSIDE RECORDS SUMMARY | 2025-02-19 20:29 | XMS_ITS | Encounter Summary ---
Author Organization [facility] Address [address] [place] [address] Care Team Providers Care Faculty Research Assistant Name Role Phone Unavailable Primary Care Provider Unavailabl e Encounter Details Date Type Department Care Team (Late st Contact Info) Description 04/18/2024 Clinisync Result Encounter [facility] External Department Unsolicited Falguni Garcia PA [address] [place] [address] Social History Tobacco Use Types Packs/Day Years [...] EDT Procedure Visit [facility] [address] [facility] [place] [phone] Kuldip Gonzales DO [address] [place] [address] documented as of this encounter Procedures Procedure Name Priority Date/Time Associated Diagnosis Comments US OB ANATOMY 04/18/2024 4:07 PM EDT AFP, SERUM, OPEN SPINA BIFIDA Routine 04/18/2024 3:07 PM EDT documented in this encounter Results * US OB ANATOMY (04/18/2024 4:07 PM EDT) Anatomical Region Laterality Modality Other 04/18/2024 4:07 PM EDT Narrative 04/18/2024 4:10 [place] [address] Ultrasound Report Signed Patient: SNOW SUTHERLAND MR#: [id number] : 1995 Acct:[id number] Age/Sex: 28 / F ADM Date: 04/18/24 Loc: [facility] Attending Dr: Falguni Garcia Ordering Physician: Falguni Garcia Date of Service: 04/18/24 Procedure(s): US OB anatomy Accession Number(s): [id number] cc: Falguni Garcia; Physician,Non-Staff M.D. [place] [id number] Patient Name: SNOW SUTHERLAND MRN: [id number] date: 1995 Sex: F Assigned Patient [facility]: [facility] Current Patient Location: LAB Accession/Order Number: [id number] Exam Date: 04/18/2024 13:04 Report Date: 04/18/2024 16:07 At the request of: FALGUNI GARCIA Procedure: US OB anatomy EXAMINATION: US OB anatomy, US OB cervical length HISTORY: ANATOMY COMPARISON: Ultrasound OB transvaginal 01/20/2024 TECHNIQUE: Transabdominal sonographic examination was performed for obstetrical and evaluation. FINDINGS: Number: 1 Heart Rate: 150 bpm H.B. /min Amniotic Fluid Volume: Subjectively normal Placental Location: POSTERIOR with lower margin 4.4 cm from os. Cervix Length: 4.13 cm , closed. ANATOMY: Normal Structures -cerebellum, choroid plexus, cisterna magna, lateral cerebral ventricles, orbits, midline falx, hard palate, four-chamber heart, RVOT, LVOT, stomach, kidneys, bladder, umbilical cord insertion into abdomen, three-vessel cord, cervical spine, thoracic spine, lumbar spine, sacral spine, right upper extremity, left upper extremity, right lower extremity, left lower extremity. SUBOPTIMALLY SEEN: None ABNORMALITIES: None BIOMETRY: BPD: 4.71 cm; 20 weeks 2 days; 7 % HC: 18.51 cm; 20 weeks 6 days; 13.50 % AC: 17.48 cm; 22 weeks 3 days; 69.80 % FL: 3.69 cm; 21 weeks 5 days; 46.20 % EFW:415.81 g; 62.10 % FL/AC: 21.11 FL/BPD: 78.34 HC/AC: 1.06 GESTATIONAL AGE: Age by EDC: 21 weeks 4 days Age by current US: 21 weeks 2 days CHAPIN by current US: 2024-08-27 CHAPIN by EDC: 2024-08-25 US/US OB anatomy IMPRESSION: 1. Single live intrauterine with growth detailed above. Electronically authenticated by: ATA LEDEZMA Date: 04/18/2024 16:07 Dictated By: Ata Ledezma M.D. Signed By: 04/18/24 1610 DD/ 1607 TD/TT: Tool Die Maker: Procedure Note Radiology, Radiologist, MD - 04/18/[address] [address] Ultrasound Report Signed Patient: SNOW SUTHERLAND GMR#: [id number] : 1995Acct:[id number] Age/Sex: 28 / FADM Date: 04/18/24 Loc: [facility] Attending Dr: Falguni Garcia Ordering Physician: Falguni Garcia Date of Service: 04/18/24 Procedure(s): US OB anatomy Accession Number(s): [id number] cc: Falguni Garcia; Physician,Non-Staff MLaquita The [address] [address] Patient Name: SNOW SUTHERLAND MRN: [id number] date: 1995 Sex: F Assigned Patient Location: [facility] Current Patient Location: LAB Accession/Order Number: [id number] Exam Date: 04/18/2024 13:04 Report Date: 04/18/2024 16:07 At the request of: FALGUNI GARCIA Procedure: US OB anatomy EXAMINATION: US OB anatomy, US OB cervical length HISTORY: ANATOMY COMPARISON: Ultrasound OB transvaginal 01/20/2024 TECHNIQUE: Transabdominal sonographic examination was performed for obstetrical and evaluation. FINDINGS: Number: 1 Heart Rate: 150 bpm H.B. /min Amniotic Fluid Volume: Subjectively normal Placental Location: POSTERIOR with lower margin 4.4 cm from os. Cervix Length: 4.13 cm , closed. ANATOMY: Normal Structures -cerebellum, choroid plexus, cisterna magna, lateral cerebral ventricles, orbits, midline falx, hard palate, four-chamberheart, RVOT, LVOT, stomach, kidneys, bladder, umbilical cord insertion intoabdomen, three-vessel cord, cervical spine, thoracic spine, lumbar spine, sacralspine, right upper extremity, left upper extremity, right lower extremity, leftlower extremity. SUBOPTIMALLY SEEN: None ABNORMALITIES: None BIOMETRY: BPD: 4.71 cm; 20 weeks 2 days; 7 % HC: 18.51 cm; 20 weeks 6 days; 13.50 % AC: 17.48 cm; 22 weeks 3 days; 69.80 % FL: 3.69 cm; 21 weeks 5 days; 46.20 % EFW:415.81 g; 62.10 % FL/AC: 21.11 FL/BPD: 78.34 HC/AC: 1.06 GESTATIONAL AGE: Age by EDC: 21 weeks 4 days Age by current US: 21 weeks 2 days CHAPIN by current US: 2024-08-27 CHAPIN by EDC: 2024-08-25 US/US OB anatomy IMPRESSION: 1. Single live intrauterine with growth detailed above. Electronically authenticated by: ATA LEDEZMA Date: 04/18/2024 16:07 Dictated By: Ata Ledezma M.D. Signed By:04/18/24 1610 DD/ 9637 TD/TT: Tool Die Maker: us Fal[facility]i [facility] Final Result * AFP, SERUM, OPEN SPINA BIFIDA (04/18/2024 3:07 PM EDT) [facility] Signature RESULTS Report . [facility] TEST RESULTS: *Screen Negative* . [facility] GEST. AGE ON COLLECTION DATE 21.6 . weeks [facility] GESTAT. AGE BASED ON Ultrasound . [facility] Comment: 17.6 on 03/21/2024 Recalculations are not recommended when gestational dating by LMP and ultrasound are within 10 days. [age]APIN [age] . [age] [facility] RACE . [facility] WEIGHT 157 . lbs [facility] INSULIN DEP DIABETES No . [facility] MULTIPLE GESTATION No . [facility] AFP VALUE 155.5 . ng/mL [facility] AFP MOM 2.33 . [facility] OSBR RISK 1 IN 401 . [facility] INTERPRETATION Comment . [facility] Comment: Interpretation: Screen Negative This result is screen negative for OSB. The AFP MoM calculated is based on the gestational age provided. MS-AFP can identify up to 80% of open neural tube defects. Closed neural tube defects and some open defects may not be detected by this test. This test does not screen for Down Syndrome or Trisomy 18. If screening for Down Syndrome or Trisomy 18 is desired, contact [facility] to discuss available options. The [employer] recommends amniocentesis be offered to women age 35 and older. COMMENT: Comment . [facility] Comment: Karla Ortiz, Ph.D., [facility] Director References: Available Upon Request. Multiples Of Median Cutoffs For AFP Elevations Wang 2.5 Black 2.8 IDD 2.0 Twins 4.5 Abbreviation Definitions IDD - Insulin Dep Diabetes OSBR - Open Spina Bifida Risk For further inquiries contact [facility] at [phone]. This test was developed and its performance characteristics determined by [employer] It has not been cleared or approved by the Food and Drug Administration. Performed at: [facility] [address] [place], [place] [id number] Tunnel Man: Sebastian Moreno [facility], Phone: [phone] 04/18/2024 3:07 PM EDT 04/18/2024 3:17 PM EDT Narrative [facility] - 04/20/2024 2:08 AM EDT N N ULTRASOUND [id number] 4 17 N 1 Y 157 N N N N N White/ us Falguni [facility] B[facility] ORDERABLES Final Resul t [facility] documented in this encounter Visit Diagnoses Not on filedocumented in this encounter
--- OUTSIDE RECORDS SUMMARY | 2025-02-19 20:29 | XMS_ITS | Encounter Summary ---
Author Organization [facility] Address [address] [place] [address] Care Team Providers Care Electrical Solderer Name Role Phone Unavailable Primary Care Provider Unavailabl e Encounter Details Date Type Department Care Team (Late st Contact Info) Description 01/20/2024 Abstract [facility] [address] [place] [address] Kuldip Gonzales DO [address] [place] [place], [place] [address] Social History Tobacco Use Types Packs/Day Years [...] EDT Procedure Visit [facility] [address] [place] [address] Kuldip Gonzales DO [address] [place], [place] [address] documented as of this encounter Visit Diagnoses Not on filedocumented in this encounter
--- OUTSIDE RECORDS SUMMARY | 2025-02-19 20:29 | XMS_ITS | Encounter Summary ---
Author Organization [facility] Address [address] [place] [address] Care Team Providers Care Director Of Claims Name Role Phone Unavailable Primary Care Provider Unavailabl e Encounter Details Date Type Department Care Team (Late st Contact Info) Description 09/25/2024 Abstract [facility] [address] [place] [address] Kuldip Gonzales DO [address] [place], [place] [address] Social History Tobacco Use Types Packs/Day Years [...] EDT Procedure Visit [facility] [address] [place] [phone] Kuldip Gonzales DO [address] [place], [place] [address] documented as of this encounter Visit Diagnoses Not on filedocumented in this encounter
--- OUTSIDE RECORDS SUMMARY | 2025-02-19 20:29 | XMS_ITS | Encounter Summary ---
Author Organization [facility] Address [address] [place] [address] Care Team Providers Care Excellence Manager Name Role Phone Unavailable Primary Care Provider Unavailabl e Encounter Details Date Type Department Care Team (Late st Contact Info) Description 01/20/2024 Clinisync Result Encounter [facility] External Department Unsolicited Etienne Gonzales DO [address] [place] [address] Social History Tobacco Use Types Packs/Day Years [...] EDT Procedure Visit [facility] [address] [place] [phone] Etienne Gonzales DO [address] [place] [address] documented as of this encounter Procedures Procedure Name Priority Date/Time Associated Diagnosis Comments US OB TRANSVAGINAL 01/20/2024 10 :17 AM EDT documented in this encounter Results * US OB TRANSVAGINAL (01/20/2024 10:17 AM EDT) Anatomical Region Laterality Modality Other 01/20/2024 10:1 7 AM EDT Narrative 01/20/2024 10:19 AM EDT [address] [address] Ultrasound Report Signed Patient: SNOW SUTHERLAND MR#: [id number] : 1995 Acct:[id number] Age/Sex: 28 / F ADM Date: 01/20/24 Loc: [facility] Attending Dr: Etienne Gonzales D.O. Ordering Physician: Etienne Gonzales D.O. Date of Service: 01/20/24 Procedure(s): US OB transvaginal Accession Number(s): [id number] cc: Etienne Gonzales D.O.; Physician,Non-Staff M.D. [place] [id number] Patient Name: SNOW SUTHERLAND MRN: [id number] date: 1995 Sex: F Assigned Patient Location: [facility] Current Patient Location: [facility] Accession/Order Number: [id number] Exam Date: 01/20/2024 08:27 Report Date: 01/20/2024 10:17 At the request of: ETIENNE GONZALES Procedure: US OB transvaginal EXAMINATION: US OB transvaginal HISTORY: MISSED MENSES COMPARISON: No relevant comparison available. FINDINGS: GESTATIONAL SAC: Present and normal appearing. YOLK SAC: Present and normal appearing. POLE: Present and normal appearing. CARDIAC: Present. UTERUS: Normal size and appearance. OVARIES: Right: Normal. Left: Corpus lutein cyst. CERVIX: 4.0 cm in length and closed. CUL-DE-SAC: Normal. OTHER: None. AGE BY LMP: 7 weeks 6 days CHAPIN BY LMP: 09/01/2024 AGE BY US CRL: 8 weeks 6 days CHAPIN BY US CRL: 08/25/2024 US/US OB transvaginal IMPRESSION: 1. Single live intrauterine with growth detailed above. Electronically authenticated by: ATA LEDEZMA Date: 01/20/2024 10:17 Dictated By: Ata Ledezma M.D. Signed By: 01/20/24 1019 DD/ 1017 TD/TT: Director Social Welfare: Procedure Note Radiology, Radiologist, MD - 01/20/2024 [place] [address] Ultrasound Report Signed Patient: SNOW SUTHERLAND GMR#: [id number] : 1995Acct:[id number] Age/Sex: M Date: 01/20/24 Loc: [facility] Attending Dr: Etienne Gonzales D.O. Ordering Physician: Etienne Gonzales D.O. Date of Service: 01/20/24 Procedure(s): US OB transvaginal Accession Number(s): [id number] cc: Etienne Gonzales D.O.; Physician,Non-Staff Stacie The [address] [address] Patient Name: SNOW SUTHERLAND MRN: [id number] date: 1995 Sex: F Assigned Patient Location: [facility] Current Patient Location: [facility] Accession/Order Number: [id number] Exam Date: 01/20/2024 08:27 Report Date: 01/20/2024 10:17 At the request of: ETIENNE GONZALES Procedure: US OB transvaginal EXAMINATION: US OB transvaginal HISTORY: MISSED MENSES COMPARISON: No relevant comparison available. FINDINGS: GESTATIONAL SAC: Present and normal appearing. YOLK SAC: Present and normal appearing. POLE: Present and normal appearing. CARDIAC: Present. UTERUS: Normal size and appearance. OVARIES: Right: Normal. Left: Corpus lutein cyst. CERVIX: 4.0 cm in length and closed. CUL-DE-SAC: Normal. OTHER: None. AGE BY LMP: 7 weeks 6 days CHAPIN BY LMP: 09/01/2024 AGE BY US CRL: 8 weeks 6 days CHAPIN BY US CRL: 08/25/2024 US/US OB transvaginal IMPRESSION: 1. Single live intrauterine with growth detailed above. Electronically authenticated by: ATA LEDEZMA Date: 01/20/2024 10:17 Dictated By: Ata Ledezma M.D. Signed By:01/20/24 1019 DD/ 1017 TD/TT: Director Social Welfare: us Etienne Gonzales DO [facility] Final Result documented in this encounter Visit Diagnoses Not on filedocumented in this encounter
--- OUTSIDE RECORDS SUMMARY | 2025-02-19 20:29 | XMS_ITS | Clinical Summary ---
Author Organization [facility] Address [address] [place] [address] Care Team Providers Care Jet Blade Polisher Name Role Phone Unavailable Primary Care Provider Unavailabl e Allergies No known active allergies Medications buPROPion XL (Wellbutrin XL) 150 MG 24 hr tablet Take 150 mg by mouth in the morning. 05/21/2023 Active sertraline (Zoloft) 50 MG tablet Take 250 mg by mouth Daily 09/30/2024 Active Zuranolone (Zurzuvae) 25 MG capsuleIndicati ons:Post depression Take 2 capsules by mouth Daily for 14 days 28 capsule 02/19/2025 03/05/20 Active Encounters Date Type Department Care Team Description 02/19/2025 11:00 AM EDT Procedure Visit [facility] [address] [place] [address] Falguni Zhao PA Well woman exam with routine gynecological exam; Post depression 02/19/2025 Bamboo flowsheet [facility] [address] [place] [address] Falguni Zhao PA from Last 3 Months Family History Medical History Relation Name Comments Cancer Mother's Sister breast cance r. advised family to strat at age 30 Relation Name Status Comments Mother's Sister Social History Tobacco Use Types Packs/Day Years Used Date Smoking Tobacco: Never Smokeless Tobacco: Never Tobacco Cessation:Counseling Given: Not Answered Comments No Sex and Gender Information Value Date Recorded Sex Assigned at Female 01/10/2023 6:27 PM EDT Legal Sex Female 12:17 PM EDT Gender Identity Female 01/10/2023 6:27 PM EDT Sexual Orientation Straight 01/10/2023 6: 27 PM EDT Last Filed Vital Signs Vital Sign Reading Time Taken Comments Blood Pressure 108/70 02/19/2025 11:35 AM EDT Pulse - - Temperature - - Respiratory Rate - - Oxygen Saturation - - Inhaled Oxygen Concentration - - Weight 71.9 kg (158 lb 7 oz) 02/19/2025 11:35 AM EDT Height 154.9 cm (5' 1 ) 01/11/2023 2:36 PM EDT Body Mass Index 29.94 01/11/2023 2:36 PM EDT Plan of Treatment Upcoming Encounters Date Type Department Care Team (Late st Contact Info) Description 02/24/2026 9:00 AM EDT Procedure Visit [facility] [address] [place] [id number] Kuldip Gonzales DO [address] [place] [address] Insurance [facility]
--- OUTSIDE RECORDS SUMMARY | 2025-02-19 20:29 | XMS_ITS | Encounter Summary ---
Author Organization [facility] Address [address] [place] [address] Care Team Providers Care Toolmaker Grade Three Name Role Phone Unavailable Primary Care Provider Unavailabl e Encounter Details Date Type Department Care Team (Late st Contact Info) Description 02/19/2025 Bamboo flowsheet [facility] [address] [facility] [place] [address] Falguni Zhao PA [address] [facility] [address] [place], [place] [address] Social History Tobacco Use Types Packs/Day Years [...] EDT Procedure Visit [facility] [address] [facility] [place] [address] Kuldip Gonzales DO [address] [facility] [address] [place], [place] [address] documented as of this encounter Visit Diagnoses Not on filedocumented in this encounter
--- OUTSIDE RECORDS SUMMARY | 2025-02-19 20:29 | XMS_ITS | Encounter Summary ---
Author Organization [facility] Address [address] [place] [address] Care Team Providers Care Electric Clock Mechanic Name Role Phone Unavailable Primary Care Provider Unavailabl e Encounter Details Date Type Department Care Team (Late st Contact Info) Description 01/20/2024 Abstract [facility] [address] [place] [address] Kuldip Gonzales DO [address] [place], [place] [address] Social History Tobacco Use Types Packs/Day Years [...] EDT Procedure Visit [facility] [address] [place] [address] Kuldip Gonzales DO [address] [place], [place] [address] documented as of this encounter Visit Diagnoses Not on filedocumented in this encounter
--- OUTSIDE RECORDS SUMMARY | 2025-02-19 20:29 | XMS_ITS | Encounter Summary ---
Author Organization [facility] Address [address] [place] [address] Care Team Providers Care Emc Storage Architect Name Role Phone Unavailable Primary Care Provider Unavailabl e Encounter Details Date Type Department Care Team (Late st Contact Info) Description 04/18/2024 Clinisync Result Encounter [facility] External Department Unsolicited Falguni Garcia PA [address] [facility] [place] [address] Social History Tobacco Use Types Packs/Day Years [...] Procedure Visit [facility] [address] [facility] [phone] Kuldip Gonzales DO [address] [place] [address] documented as of this encounter Procedures Procedure Name Priority Date/Time Associated Diagnosis Comments US OB CERVICAL LENGTH 04/18/2024 4:07 PM EDT documented in this encounter Results * US OB CERVICAL LENGTH (04/18/2024 4:07 PM EDT) Anatomical Region Laterality Modality Other 04/18/2024 4:07 PM EDT Narrative 04/18/2024 4:09 PM EDT [address] [address] Ultrasound Report Signed Patient: SNOW SUTHERLAND MR#: [id number] : 1995 Acct:[id number] Age/Sex: 28 / F ADM Date: 04/18/24 Loc: [facility] Attending Dr: Falguni Garcia Ordering Physician: Falguni Garcia Date of Service: 04/18/24 Procedure(s): US OB cervical length Accession Number(s): [id number] cc: Falguni Garcia; Physician,Non-Staff M.DHenny [address] [address] Patient Name: SNOW SUTHRELAND MRN: [id number] date: 1995 Sex: F Assigned Patient Location: [facility] Current Patient Location: LAB Accession/Order Number: [id number] Exam Date: 04/18/2024 13:03 Report Date: 04/18/2024 16:07 At the request of: FALGUNI GARCIA Procedure: US OB cervical length EXAMINATION: US OB anatomy, US OB cervical [...] 2024-08-27 CHAPIN by EDC: 2024-08-25 US/US OB cervical length IMPRESSION: 1. Single live intrauterine with growth detailed above. Electronically authenticated by: JAVON LEDEZMA Date: 04/18/2024 16:07 Dictated By: Javon Ledezma M.D. Signed By: 04/18/241608 DD/ 06 TD/TT: Coiled Coil Inspector: Procedure Note Radiology, Radiologist, MD - 04/18/2024 [place] [address] Ultrasound Report Signed Patient: SNOW SUTHERLAND GMR#: [id number] : 1995Acct:[id number] Age/Sex: 28 / FADM Date: 04/18/24 Loc: [facility] Attending Dr: Falguni Garcia Ordering Physician: Falguni Garcia Date of Service: 04/18/24 Procedure(s): US OB cervical length Accession Number(s): [id number] cc: Falguni Garcia; Physician,Non-Staff Stacie The [address] [address] Patient Name: SNOW SUTHERLAND MRN: [id number] date: 1995 Sex: F Assigned [facility] Current Patient Location: LAB Accession/Order Number: [id number] Exam Date: 04/18/2024 13:03 Report Date: 04/18/2024 16:07 At the request of: FALGUNI GARCIA Procedure: US OB cervical length EXAMINATION: US OB anatomy, US OB cervical [...] 2024-08-27 CHAPIN by EDC: 2024-08-25 US/US OB cervical length IMPRESSION: 1. Single live intrauterine with growth detailed above. Electronically authenticated by: JAVON LEDEZMA Date: 04/18/2024 16:07 Dictated By: Javon Ledezma M.D. Signed By:04/18/24 1609 DD/ 160 TD/TT: Coiled Coil Inspector: us Falguni [facility] Final Result documented in this encounter Visit Diagnoses Not on filedocumented in this encounter
--- OUTSIDE RECORDS SUMMARY | 2025-02-19 20:29 | XMS_ITS | Encounter Summary ---
Author Organization [facility] Address [address] [place] [address] Care Team Providers Care Machine Shorthand Teacher Name Role Phone Unavailable Primary Care Provider Unavailabl e Encounter Details Date Type Department Care Team (Late st Contact Info) Description 10/01/2024 Abstract [facility] [address] [place] [address] Kuldip Gonzales DO [address] [place], [place] [address] Social History Tobacco Use Types Packs/Day Years [...] EDT Procedure Visit [facility] [address] [place] [address] Kuldip Gonzales DO [address] [place], [place] [address] documented as of this encounter Visit Diagnoses Not on filedocumented in this encounter
--- OUTSIDE RECORDS SUMMARY | 2025-02-19 20:29 | XMS_ITS | Encounter Summary ---
Author Organization [facility] Address [address] [place] [address] Care Team Providers Care Packager Hand Name Role Phone Unavailable Primary Care Provider Unavailabl e Encounter Details Date Type Department Care Team (Late st Contact Info) Description 02/07/2024 Abstract [facility] [address] [facility] [place] [address] Purvi Mahmood LPN [address] [place] [phone] Social History Tobacco Use Types Packs/Day Years [...] EDT Procedure Visit [facility] [address] [place] [address] Kuldip Gonzales DO [address] [facility] [place] [address] documented as of this encounter Visit Diagnoses Not on filedocumented in this encounter
--- OUTSIDE RECORDS SUMMARY | 2025-02-19 20:29 | XMS_ITS | Encounter Summary ---
Author Organization [facility] Address [address] [place] [address] Care Team Providers Care Youtuber Name Role Phone Unavailable Primary Care Provider Unavailabl e Encounter Details Date Type Department Care Team (Late st Contact Info) Description 08/17/2024 Abstract [facility] [address] [place] [address] Kuldip Gonzales DO [address] [place], [place] [address] Social History Tobacco Use Types Packs/Day Years [...] EDT Procedure Visit [facility] [address] [place] [address] Kuldip Gonzales DO [address] [place], [place] [address] documented as of this encounter Visit Diagnoses Not on filedocumented in this encounter
--- OUTSIDE RECORDS SUMMARY | 2025-02-19 20:29 | XMS_ITS | Encounter Summary ---
Author Organization [facility] Address [address] [place] [address] Care Team Providers Care Spine Surgeon Name Role Phone Unavailable Primary Care Provider Unavailabl e Encounter Details Date Type Department Care Team (Late st Contact Info) Description 07/11/2024 Clinisync Result Encounter [facility] External Department Unsolicited Etienne Gonzales DO [address] [place], [facility] Social History Tobacco Use Types Packs/Day Years [...] Visit [facility] [address] [place] [phone] Etienne Gonzales DO [address] [place] [address] documented as of this encounter Procedures Procedure Name Priority Date/Time Associated Diagnosis Comments US OB BPP W NON-STRESS 07/11/2024 3:14 PM EST documented in this encounter Results * US OB BPP W NON-STRESS (07/11/2024 3:14 PM EST) Anatomical Region Laterality Modality Other 07/11/2024 3:14 PM EST Narrative 07/11/2024 3:17 [place] [address] Ultrasound Report Signed Patient: SNOW SUTHERLAND MR#: [id number] : 1995 Acct:[id number] Age/Sex: 28 / F ADM Date: Loc: [facility] 250-[address]: Etienne Gonzales D.O. Ordering Physician: Etienne Gonzales D.O. Date of Service: 07/11/24 Procedure(s): US OB BPP w non-stress Accession Number(s): [id number] cc: Etienne Gonzales D.O.; Physician,Non-Staff M.DHenny The [place] [id number] Patient Name: SNOW SUTHERLAND MRN: [id number] date: 1995 Sex: F Assigned Patient Location: [facility] Current Patient Location: [facility] Accession/Order Number: [id number] Exam Date: 07/11/2024 14:30 Report Date: 07/11/2024 15:14 At the request of: ETIENNE GONZALES Procedure: US OB BPP w non-stress OB ultrasound for biophysical profile, 07/11/2024 2:30 PM EST COMPARISON: OB ultrasound, 04/18/2024 CLINICAL HISTORY: decreased movement Biophysical profile is scored: breathing score 2 out of 2. tone score 2 out of 2. movements score 2 out of 2. Qualitative amniotic fluid amount score 2 out of 2. reactivity was not performed or the results are not known at time of examination. This gives a total of 8 out of 8. The position is cephalic. The heart rate is 144 beats per minute. Amniotic fluid index is 19.5 cm. US/US OB BPP w non-stress IMPRESSION: 1. A score of 8 of 8 is noted. 2. The heart rate is 144 beats per minute. 3. The position is cephalic. Amniotic fluid index 19.5 cm. Electronically authenticated by: Jean-Pierre BYRNE Date: 07/11/2024 15:14 Dictated By: Adolfo Byrne M.D. Signed By: 07/11/24 1517 DD/ 1514 TD/TT: Judge: Procedure Note Radiology, Radiologist, MD - 07/11/2024 [place] [address] Ultrasound Report Signed Patient: SNOW SUTHERLAND GMR#: [id number] : 1995Acct:[id number] Age/Sex: 28 / FADM Date: Loc: [facility] 250-[address]: Etienne Gonzales D.O. Ordering Physician: Etienne Gonzales D.O. Date of Service: 07/11/24 Procedure(s): US OB BPP w non-stress Accession Number(s): [id number] cc: Etienne Gonzales D.O.; Physician,Non-Staff Stacie The [place] [id number] Patient Name: SNOW SUTHERLAND MRN: [id number] date: 1995 Sex: F Assigned Patient Location: [facility] Current Patient Location: [facility] Accession/Order Number: [id number] Exam Date: 07/11/2024 14:30 Report Date: 07/11/2024 15:14 At the request of: ETIENNE GONZALES Procedure: US OB BPP w non-stress OB ultrasound for biophysical profile, 07/11/2024 2:30 PM EST COMPARISON: OB ultrasound, 04/18/2024 CLINICAL HISTORY: decreased movement Biophysical profile is scored: breathing score 2 out of 2. tone score 2 out of 2. movements score 2 out of 2. Qualitative amniotic fluid amount score 2 out of 2. reactivity was not performed or the results are not known at time of examination. This gives a total of 8 out of 8. The position is cephalic. Theheart rate is 144 beats per minute. Amniotic fluid index is 19.5 cm. US/US OB BPP w non-stress IMPRESSION: 1. A score of 8 of 8 is noted. 2. The heart rate is 144 beats per minute. 3. The position is cephalic. Amniotic fluid index 19.5 cm. Electronically authenticated by: Jean-Pierre BYRNE Date: 07/11/2024 15:14 Dictated By: Adolfo Byrne M.D. Signed By:07/11/24 1517 DD/ 1514 TD/TT: Judge: us Etienne Gonzales DO [facility] Final Result documented in this encounter Visit Diagnoses Not on filedocumented in this encounter
--- OUTSIDE RECORDS SUMMARY | 2025-02-19 20:31 | XMS_ITS | CCD ---
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 Abnormal [facility] Ketones, UA Negative Negative - 160(16) ++++ mg/dL [facility] Leukocytes, UA Positive Negative - 500+++ Christian/mcL [facility] Comment on above: small Nitrite, UA Negative Negative - Positive [facility] pH, UA 7.0 5 - 9 [facility] e Protein, UA Negative Negative - 1999(20) ++++ mg/dL [facility] Spec Grav, UA 1.020 1 - 1.03 [facility] Urobilinogen, UA 0.2 0.2 - 12 mg/dL [facility] Health[facility] e BhCG Quanton 06-11-2023 Beta hCG Qnt 10 mIU/mL High 1-3 [facility] Comment on above: Result Comment: 'F N ON < 1 - 3' ' 0.2 - 1 WEEK = 5 TO 50' ' 1 - 2 WEEKS = 50 - 500' ' 2 - 3 WEEKS = 100 - 5000' ' 3 - 4 WEEKS = 500 - 44297' ' 4 - 5 WEEKS = 1000 - 33550' ' 5 - 6 WEEKS = 62880 - 419268' ' 6 - 8 WEEKS = 24700 - 118446' ' 8 - 12 WEEKS = 77371 - 212809' Performed By: #### 2 [id number] #### [facility] Laboratory [address] [place] [address] CHEMISTRYOrdered By: SYSTEM SYSTEM on 06-11-2023 HCG.beta [...] 3 - 4 WEEKS = 500 - 05715' ' 4 - 5 WEEKS = 1000 - 27810' ' 5 - 6 WEEKS = 36619 - 562060' ' 6 - 8 WEEKS = 57960 - 409107' ' 8 - 12 WEEKS = 10147 - 422140' Consent for Treatmenton 05-27 Consent for Treatment [id number]#[id number] Normal [facility] US 1st Trimesteron 06-10-2023 US 1st Trimester [...] Transabdominal Ultrasound Performed Transvaginal Ultrasound Performed Normal [facility] US Transvaginalon 06-10-2023 US Transvaginal Exam Date/Time: 06/09/2023 20:55 EST Reason for Exam: vaginal bleeding Report Please see pelvic sonogram report for report of transvaginal ultrasound. Ordering Provider: Jasmina Martinez FINAL REPORT Dictated: 06/10/2023 8:43 am Chas Jaramillo MD Signed (Electronic Signature): 06/10/2023 8:43 am Signed by: Chas Jaramillo MD Transcribed by: DP Technologist: GABRIELLE Normal [facility] Auto Diffon 06-09-2023 Basophils/100 WBC (Bld) 0.9 % Normal 0.0-2.0 [facility] Comment on above: Order Comment: Order Added by Discern Expert. Performed By: #### 1 [id number], [id number], [id number], [id number] #### [facility] Laboratory [address] [place] [address] Basophils/Leukocytes Auto (Bld) [Pure # fraction] 0.1 E9/L Normal 0.0-0.2 [facility] Comment on above: Order Comment: Order Added by Discern Expert. Performed By: #### 1 [id number], 8773298, 8767906, 1760596 #### [facility] Laboratory [address] [place] [address] Eosinophils/100 WBC (Bld) 1.1 % Normal 0.0-8.0 [facility] Comment on above: Order Comment: Order Added by Discern Expert. Performed By: #### 1 [id number], 3277798, 3276435, 0875133 #### [facility] Laboratory [address] [place] [address] Eosinophils/Leukocyte s Auto (Bld) [Pure # fraction] 0.1 E9/L Normal 0.0-0.5 [facility] Comment on above: Order Comment: Order Added by Discern Expert. Performed By: #### 1 [id number], 9276218, 6748823, 8488342 #### [facility] Laboratory [address] [place] [address] Lymphocytes/100 WBC (Bld) 29.0 % Normal 14.0-50.0 [facility] Comment on above: Order Comment: Order Added by Vincent Expert. Performed By: #### 1 [id number], 0064745, 7567882, 6939853 #### [facility] Laboratory [address] [place] [address] Lymphocytes/Leukocyte s Auto (Bld) [Pure # fraction] 2.2 E9/L Normal 1.0-4.0 [facility] Comment on above: Order Comment: Order Added by Discern Expert. Performed By: #### 1 [id number], 1956722, 1681125, 7910036 #### [facility] Laboratory [address] [place] [address] Monocytes/100 WBC (Bld) 5.9 % Normal 4.0-14.0 [facility] Comment on above: Order Comment: Order Added by Vincent Expert. Performed By: #### 1 8386872, 4147061, 2169734, 6800418 #### [facility] Laboratory [address] [place] [address] Monocytes/Leukocytes Auto (Bld) [Pure # fraction] 0.4 E9/L Normal 0.2-1.0 [facility] Comment on above: Order Comment: Order Added by Vincent Expert. Performed By: #### 1 4030989, 7048882, 7746889, 7746233 #### [facility] Laboratory [address] [place] [address] Neutrophils/100 WBC (Bld) 63.1 % Normal 36.0-75.0 [facility] Comment on above: Order Comment: Order Added by Vincent Expert. Performed By: #### 1 4163080, 2888111, 6901349, 2758241 #### [facility] Laboratory [address] [place] [address] Neutrophils/Leukocyte s Auto (Bld) [Pure # fraction] 4.7 E9/L Normal 2.0-7.5 [facility] Comment on above: Order Comment: Order Added by Vincent Expert. Performed By: #### 1 2750760, 9526294, 6981319, 7366869 #### [facility] Laboratory [address] [place] [address] BMPon 06-09-2023 Anion gap [Moles/Vol] 11 mmol/L Normal 6-16 [facility] Comment on above: Performed By: #### 1 0469190, 4380944, 5745360, 9301776 #### [facility] Laboratory [address] [place] [address] BUN/Creat Ratio 13 No Units Normal 10-20 [facility] Comment on above: Performed By: #### 1 1966191, 9650819, 8390396, 6426984 #### [facility] Laboratory [address] [place] [address] Calcium [Mass/Vol] 9.4 mg/dL Normal 8.9-11.1 [facility] Comment on above: Performed By: #### 1 6346822, 1055829, 0116186, 8840397 #### [facility] Laboratory [address] [place] [address] Chloride [Moles/Vol] 104 mmol/L Normal 101-111 [facility] Comment on above: Performed By: #### 1 1776070, 5194531, 0854118, 8996552 #### [facility] Laboratory [address] [place] [address] CO2 [Moles/Vol] 27 mmol/L Normal 21-31 [facility] Comment on above: Performed By: #### 1 1160319, 5324196, 5515876, 4520724 #### [facility] Laboratory [address] [place] [address] Creatinine [Mass/Vol] 0.6 mg/dL Normal 0.5-1.3 [facility] Comment on above: Performed By: #### 1 0731956, 7623751, 8341308, 8240420 #### [facility] Laboratory [address] [place] [address] Glucose [Mass/Vol] 90 mg/dL Normal 55-199 [facility] Comment on above: Performed By: #### 1 5235903, 3042032, 4137417, 1613654 #### [facility] Laboratory [address] [place] [address] Potassium [Moles/Vol] 3.9 mmol/L Normal 3.5-5.3 [facility] Comment on above: Performed By: #### 1 8023436, 0545255, 5123425, 8442350 #### [facility] Laboratory [address] [place] [address] Sodium [Moles/Vol] 138 mmol/L Normal 135-145 [facility] Comment on above: Performed By: #### 1 4677168, 0965092, 0785745, 5649933 #### [facility] Laboratory [address] [place] [address] Urea nitrogen [Mass/Vol] 8 mg/dL Normal 5-21 [facility] Comment on above: Performed By: #### 1 9311929, 9203918, 7111014, 7000433 #### [facility] Laboratory [address] [place] [address] BhCG Quanton 06-09-2023 Beta hCG Qnt 32 mIU/mL High 1-3 [facility] Comment on above: Result Comment: 'F N ON < 1 - 3' ' 0.2 - 1 WEEK = 5 TO 50' ' 1 - 2 WEEKS = 50 - 500' ' 2 - 3 WEEKS = 100 - 5000' ' 3 - 4 WEEKS = 500 - 54879' ' 4 - 5 WEEKS = 1000 - 45888' ' 5 - 6 WEEKS = 61864 - 881990' ' 6 - 8 WEEKS = 63881 - 986299' ' 8 - 12 WEEKS = 62584 - 606186' Performed By: #### 1 8958819, 5659336, 8788572, 8160440 #### [facility] Laboratory [address] [place] [address] CBC w/ Auto Diffon 3 Erythrocyte distribution width (RBC) [Ratio] 14.0 % Normal 10.9-14.2 [facility] Comment on above: Performed By: #### 1 8751543, 9024646, 5698567, 4304316 #### [facility] Laboratory [address] [place] [address] Hematocrit (Bld) [Volume fraction] 39.5 % Normal 34.0-46.0 [facility] Comment on above: Performed By: #### 1 9700616, 2107894, 0051169, 6461747 #### [facility] Laboratory [address] [place] [address] Hemoglobin (Bld) [Mass/Vol] 13.2 g/dL Normal 12.0-16.0 [facility] Comment on above: Performed By: #### 1 3460538, 5744885, 9057070, 8464269 #### [facility] Laboratory [address] [place] [address] MCH (RBC) [Entitic mass] 27.5 pg Normal 27.0-34.0 [facility] Comment on above: Performed By: #### 1 8497469, 5241649, 3105220, 8683754 #### [facility] Laboratory [address] [place] [address] MCHC (RBC) [Mass/Vol] 33.5 g/dL Normal 31.4-36.0 [facility] Comment on above: Performed By: #### 1 9817882, 6052326, 4846208, 6396439 #### [facility] Laboratory [address] [place] [address] MCV (RBC) [Entitic vol] 81.9 fL Normal 80.0-100.0 [facility] Comment on above: Performed By: #### 1 9747803, 6196387, 8323040, 7455587 #### [facility] Laboratory [address] [place] [address] Platelet mean volume (Bld) [Entitic vol] 7.2 fL Normal 6.4-10.8 [facility] Comment on above: Performed By: #### 1 0777217, 0505055, 1424403, 6992489 #### [facility] Laboratory [address] [place] [address] Platelets (Bld) [#/Vol] 304.0 E9/L Normal 150.0-500.0 [facility] Comment on above: Performed By: #### 1 2035587, 7750353, 9211111, 3741776 #### [facility] Laboratory [address] [place] [address] RBC (Bld) [#/Vol] 4.8 E12/L Normal 4.3-5.9 [facility] Comment on above: Performed By: #### 1 4640669, 7344870, 5448411, 9641848 #### [facility] Laboratory [address] [place] [address] WBC corrected for nucl RBC Auto (Bld) [#/Vol] 7.4 E9/L Normal 4.0-11.0 [facility] Comment on above: Performed By: #### 1 8515898, 6245290, 2708130, 9139679 #### [facility] Laboratory [address] [place] [address] CHEMISTRYOrdered By: SYSTEM SYSTEM on 06-09-2023 Anion [...] 3 - 4 WEEKS = 500 - 71952' ' 4 - 5 WEEKS = 1000 - 38813' ' 5 - 6 WEEKS = 50347 - 059258' ' 6 - 8 WEEKS = 26657 - ' ' 8 - 12 WEEKS = - 494240' Potassium [Moles/Vol] 3.9 mmol/L Normal 3.5 - 5.3 mmol/L Remisol Chem Sodium [Moles/Vol] 138 mmol/L Normal 135 - 145 mmol/L Remisol Chem Urea nitrogen [Mass/Vol] 8 mg/dL Normal 5 - 21 mg/dL [facility] Urea nitrogen/Creatinine [Mass ratio] 13 mg/mg Normal 10 - 20 Rem[facility] Chem Consent for Treatmenton 05-27 Consent for Treatment [id number] Normal [facility] Discharge Instructionson Discharge Instructions [id number] Normal [facility] ED Clinical Summaryon 2022 ED Clinical Summary [place] [id number] ED Clinical Summary Person Information Name: ZENAIDA SUTHERLAND/[facility] Age: 27 Years : 1995 Sex: Female Language: Irish PCP: ELIESER RODRÍGUEZ Marital Status: Single Phone: [phone] Visit Id: Visit Reason: Vaginal bleeding - [...] 06/09/2023 21:35:20 06/09/2023 21:35:20 06/09/2023 21:35:20 ADDRESS: [address] [place] [id number] PHYS DOC NOTES: MEDICAL INFORMATION: Prescriptions Given: [...] Follow up: With: Address: When: [facility], [address] [place] [address] [place] [address] Business (1) In 3 days 06/12/2023 DIAGNOSIS: Threatened miscarriage in early Normal [facility] ED Note-Physicianon 06-09-20 ED Note-Physician Basic Information Time Seen: Jasmina Martinez PA-C 06/09/2023 18:42 Chief Complaint pt reports to ed for vaginl bleeding for one week, worsening today. LMP nov 14th. denies pain. History of Present Illness 27-year-old [...] hours. 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 Patient voices understanding and is agreeable to plan Disposition Plan Patient Discharge Condition improved, stable Discharge Disposition to home Discharge Prescription List Prescriptions No active prescription medications Follow-up With When Contact Information Kuldip GONZALES In 3 days 06/12/[address] [place] [address]- Business (1) Additional Instructions: Patient Education Vaginal Bleeding During , First Trimester Attestation Patient was treated and evaluated by the Physician Attorney Recruiter. The attending physician was in the Emergency [...] 18:32:00) Lymph Auto: 29 % (06/09/23 18:32:00) Pima Auto: 5.9 % (06/09/23 18:32:00) Eos Auto: 1.1 % (06/09/23 18:32:00) Basophil Auto: 0.9 % (06/09/23 18:32:00) Neutro Absolute: 4.7 E9/L (06/09/23 18:32:00) Lymph Absolute: 2.2 E9/L (06/09/23 18:32:00) Pima Absolute: 0.4 E9/L (06/09/23 18:32:00) Eos Absolute: 0.1 E9/L (06/09/23 18:32:00) Basophil Absolute: 0.1 E9/L (06/09/23 18:32:00) Glucose Lvl: 90 mg/dL (06/09/23 18:32:00) BUN: 8 mg/dL ( (more content not included)... Normal [facility] Comment on above: Result Comment: Elec tronically [...] your regular activities. General instructions ? Take fbmr-xmo-hgxbgyx and prescription medicines only as told by [...] Reviewed: 03/05/2021 Elsevier Patient Education ? 2022 [employer] Normal [facility] ED Patient Summaryon 023 ED Patient Summary [address] [address] Patient Discharge Instructions Person Information Name: ZENAIDA SUTHERLAND Age: 27 Years Arrival Date: 06/09/2023 16:54:49 Discharge Diagnosis: Threatened miscarriage in early Primary Care Physician: ELIESER RODRÍGUEZ Provider Information Primary Provider: Fransisco Paulino DO Advanced Mechanical Integrity Specialist:Jasmina Martinez PA-C The exam and treatment you received in the Emergency Department were for an urgent problem and are not intended as complete care. It is important that you follow up with a doctor, nurse practitioner, or physician?s assistant front end manager for ongoing care. If your symptoms become worse or you do not improve as expected and you are unable to reach your usual health care provider, you should return to the Emergency Department. We are available 24 hours a day. ZENAIDA SUTHERLAND has been given the following list of patient education materials, prescriptions and follow-up instructions: Follow-up Instructions: With: Address: When: Kuldip GONZALES [facility], [address] [place] [address] [place] [address] Business (1) In 3 days [...] opioids can be used to help relieve grzhhnnd-rz-rekybw pain and are often prescribed following a [...] be struggling with addiction, tell your health direct support professional caregiver and ask for guidance (more content not included)... Normal [facility] HEMATOLOGYOrdered By: SYSTEM SYSTEM on 06-09-2023 Basophils/100 [...] (U) [Moles/Vol] Positive (06/09/23 5:58 PM) Normal [facility] Man Sero U BetaHcg Qualon 06-09-2023 HCG.beta subunit (U) [Moles/Vol] Positive Normal [facility] Comment on above: Performed By: #### 1 [id number], [id number] #### [facility] Laboratory [address] [place] [address] UA With Cult Reflexon 2022 Bacteria LM Ql (Urine sed) TRACE Normal Trace [facility] Comment on above: Performed By: #### 1 [id number], [id number] #### [facility] Laboratory [address] [place] [address] Bilirubin Ql (U) Negative Normal Negative [facility] Comment on above: Performed By: #### 1 8565031, [id number] #### [facility] Laboratory [address] [place] [address] Calcium oxalate crystals LM Ql (Urine sed) Present Normal [facility] Comment on above: Performed By: #### 1 [id number], [id number] #### [facility] Laboratory [address] [place] [address] Clarity (U) CLEAR Normal Clear [facility] Comment on above: Performed By: #### 1 7565417, [id number] #### [facility] Laboratory [address] [place] [address] Color (U) YELLOW Normal Yellow [facility] Comment on above: Performed By: #### 1 4771282, [id number] #### [facility] Laboratory [address] [place] [address] Crystals LM Ql (Urine sed) Present Normal [facility] Comment on above: Performed By: #### 1 7593532, [id number] #### [facility] Laboratory [address] [place] [address] Epithelial cells.squamous LM.HPF (Urine sed) [#/Area] 3-4 Normal 0-2 [facility] Comment on above: Performed By: #### 1 4607109, [id number] #### [facility] Laboratory [address] [place] [address] Glucose Test strip (U) [Mass/Vol] Negative Normal Negative [facility] Comment on above: Performed By: #### 1 [id number], [id number] #### [facility] Laboratory [address] [place] [address] Hemoglobin Ql (U) 2+ Abnormal Negative [facility] Comment on above: Performed By: #### 1 [id number], [id number] #### [facility] [address] [place] [address] Ketones (U) [Mass/Vol] TRACE Abnormal Negative [facility] Comment on above: Performed By: #### 1 [id number], [id number] #### [facility] [address] [place] [address] Fenton.plasma/Lithiu m.RBC (Bld) [Mass ratio] 0-3 Normal 0-3 [facility] Comment on above: Performed By: #### 1 [id number], [id number] #### [facility] [address] [place] [address] Mucus Ql (Urine sed) 2+ Normal Fish er [facility] Comment on above: Performed By: #### 1 [id number], [id number] #### [facility] [address] [place] [address] Nitrite Ql (U) Negative Normal Negative [facility] Comment on above: Performed By: #### 1 [id number], [id number] #### [facility] [address] [place] [address] pH (U) 6.0 [pH] Invalid Interpretation Code 5.0-9.0 [facility] Comment on above: Performed By: #### 1 [id number], [id number] #### [facility] [address] [place] [address]92 Protein (U) [Mass/Vol] Negative Normal Negative [facility] Comment on above: Performed By: #### 1 [id number], [id number] #### [facility] [address] [place] [address] Specific gravity (U) [Rel density] >=1.030 Invalid Interpretation Code 1.005-1.030 [facility] Comment on above: Performed By: #### 1 [id number], [id number] #### [facility] [address] [place] [address] Type of Urine collection method Clean Catch Normal [facility] Comment on above: Performed By: #### 1 [id number], [id number] #### [facility] [address] [place] [address] 77362 Urobilinogen Qn (U) 0.2 {Gene'U}/dL Normal 0.0-1.0 [facility] Comment on above: Performed By: #### 1 [id number], [id number] #### [facility] [address] [place] [address] WBC Auto Ql (U) Negative Normal Negative [facility] Comment on above: Performed By: #### 1 [id number], [id number] #### [facility] [address] [place] [address] WBC LM.HPF (Urine sed) [#/Area] 0-5 Normal 0-5 [facility] Comment on above: Performed By: #### 1 [id number], [id number] #### [facility] [address] [place] [address] URINALYSISOrdered By: Juhi rod on 06-09-2023 Bacteria [...] Interpretation Code Negative [facility] UA Auto SS Fenton.plasma/Lithiu m.RBC (Bld) [Mass ratio] 0-3 /HPF Normal [...] [Mass/Vol] Negative (06/09/23 5:58 PM) Normal Negative [facility] UA Auto SS Specific gravity (U) [Rel density] >=1.030 *NA* (06/09/23 5:58 PM) Invalid Interpretation Code 1.005 - 1.030 [facility] UA Auto SS UA Spec Desc Clean Catch (06/09/23 5:58 PM) Normal [facility] UA Auto SS Urobilinogen Qn (U) 0.4069873 {Gene'U}/dL Normal 0.0 - 1.0 EU/dL [facility] UA Auto SS WBC Auto Ql (U) Negative (06/09/23 5:58 PM) Normal Negative [facility] UA Auto SS WBC LM.HPF (Urine sed) [#/Area] 0-5 /HPF Normal 0-5/HPF [facility] UA Auto SS eGFRon 06-09-2023 GFR/1.73 sq M.predicted among non-blacks MDRD (S/P/Bld) [Vol rate/Area] mL/min/{1.73_m2} Normal >=59 [facility] Comment on above: Order Comment: Order added by Discern Expert. Performed By: #### 1 [id number], [id number] #### [facility] [address] [place] [address] XR ankle RT min 3V*on 2021 XR ankle RT min 3V* [facility] Main [address] [address] XRay Report Signed Patient: Zenaida Sagastume MR#: [id number] 9 : 1995 Acct:[id number] Age/Sex: 26 / F ADM Date: 01/03/22 Loc: [id number] Room: Type: [facility] Attending Dr: Kraig Haynes PA-C Copies to: Kraig Haynes Ordering Provider: Kraig Haynes Date of Service: 01/03/22 XR/XR ankle RT min 3V*: Injury of right ankle, 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 3views Rightankle COMPARISON:None HISTORY: RIGHT ankle injury No fracture, dislocation or focal soft tissue abnormality seen. XR/XR ankle RT min 3V* IMPRESSION: No acute findings. Impression dictated by: Efraín Gary M.D.01/03/2022 12:18 PM Dictation Location: [place] [address] Transcribed By: [facility] 01/03/22 1218 Dictated By: Efraín Gary DO 01/03/22 1217 Signed By: 01/03/22 1218 Normal [facility] XR ankle RT min 3V* [facility] [employer] Other XR ankle RT min 3V* [facility] [employer] Other XR ankle RT min 3V* [address] [place] [address] [employer] Other XR ankle RT min 3V* [place] [id number] [facility] Other XR ankle RT min 3V* XRay Report Nort [employer] Other XR ankle RT min 3V* Signed [employer] Other XR ankle RT min 3V* Patient: Zenaida Sagastume MR#: [id number] [facility] Other XR ankle RT min 3V* 9 [facility] Other XR ankle RT min 3V* : 1995 Acct:[id number] Well Other XR ankle RT min 3V* Age/Sex: 26 / F ADM Date: 01/03/22 Well Other XR ankle RT min 3V* Loc: [id number] Room: Type: [facility] Well Other XR ankle RT min 3V* Attending Dr: Kraig Haynes PA-C Well Other XR ankle RT min 3V* Copies to: Kraig Haynes [employer] Other XR ankle RT min 3V* Ordering Provider: Kraig Haynes [employer] Other XR ankle RT min 3V* Date of Service: 01/03/22 Well Other XR ankle RT min 3V* XR/XR ankle RT min 3V*: Injury of right ankle, 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 Well Other XR ankle RT min 3V* 3views Rightankle Well Other XR ankle RT min 3V* COMPARISON:None [facility] Other XR ankle RT min 3V* HISTORY: RIGHT ankle injury Well Other XR ankle RT min 3V* No fracture, dislocation or focal soft tissue abnormality seen. Well Other XR ankle RT min 3V* XR/XR ankle RT min 3V* Well Other XR ankle RT min 3V* IMPRESSION: No acute findings. Well Other XR ankle RT min 3V* Impression dictated by: Efraín Gary M.D.01/03/2022 12:18 PM Well Other XR ankle RT min 3V* Dictation Location: [place] [address] Well Other XR ankle RT min 3V* Transcribed By: P[facility] 01/03/22 1218 Well Other XR ankle RT min 3V* Dictated By: Efraín Gary DO 01/03/22 1217 Well Other XR ankle RT min 3V* Signed By: Well Other XR ankle RT min 3V* 01/03/22 1218 [employer] Other ED Pat Ed 10-25-2019 ED Pat Edu [place] [id number] Emergency Department Discharge Instructions ZENAIDA SAGASTUME , Please provide this information to your Primary Care/Specialist Name : ZENAIDA SAGASTUME Current Date : 10/24/2019 22:11:44 : 1995 Primary Care Physician : Apolonia Mayer CNP Diagnosis: Follow-Up Instructions: ZENAIDA SAGASTUME has been given these follow-up instructions: FOLLOW-UP APPOINTMENTS: Provider: Specialty: Address: Date: Apolonia Mayer CNP [address] [id number] (9) 10 to 14 days Comment: Call for an Appointment Provider: Specialty: Address: Date: Return to Emergency Department Follow-up as needed Comment: For new or concerning symptoms Laboratory Orders: Name: Status: Coronavirus (COVID-19/SARS-CoV- 2) RAPID Completed Radiology Orders: None Ordered Diagnostic Tests: None Ordered Procedure(s) and Patient Education(s) : Work Release 3 Days COVID19 ([id number]); COL COVID19 Caring for Yourself at Home (Suspected or Confirmed) (Custom); COL COVID19 Self Isolation (Custom) EMERGENCY SERVICES MEDICATION LIST [facility] Name ZENAIDA SAGASTUME MRN (COL)-[id number] PLEASE READ THE FOLLOWING REGARDING YOUR MEDICATIONS [...] doses are changed, or new medications (including oark-gam-nfjppvi products) are added. If you have any [...] UNTIL YOU TALK TO YOUR DOCTOR None [place] [id number] Emergency Department Discharge Instructions Name: ZENAIDA SAGASTUME Current Date: 10/24/2019 22:11:44 : 1995 Primary Physician: Apolonia Mayer CNP We would like to thank you for choosing [facility] for your emergency medical needs. [...] and the health of those around you. [facility] offers many resources to help with smoking cessation. Call the [place] Tobacco Quit Line at 5-889-MVPE-NOW ( ). High blood pressure: Your screening [...] deadly infections. Discuss this with your child's bead cutter, or Public Health Department. Your family practice doctor can determine if you need pneumonia or flu vaccine. The [facility] Department can be reached at . Substance Abuse Program: Concerns with addiction to alcohol, benzodiazepines (Ativan or Xanax) and Opiates (Heroin, Percocet, OxyContin, Methadone or Fentanyl)? [facility] offers an inpatient Substance Abuse Program to help treat the symptoms associated with medical detoxification of addictive substances. The new program offers care for non- adults (18 and older) looking to break the chain to addictive chemicals. The Substance Abuse Program is a voluntary inpatient admission and it starts with a pre-screening phone call to a social service worker. During the call, goals and objectives for recovery and how the patient will transition to outpatient care will be established. Please call [phone] to get help today. Domestic Violence: If you are a victim of domestic violence (physical, verbal, or emotional), you are not alone. Discuss this with your physician or a friend and call the [place] Domestic Violence Hotline or [place] Domestic Violence Hotline for assistance and support. [...] physician, call the Physician Referral Line at (501) 104-TLZV (1697). Suicide Hotline: Your mental and emotional well-being is important. If you are in a mental health crisis or are having thoughts of suicide, please call the nationwide suicide hotline, anytime day or night, at 6-461-506-RSMQ (2829). Community Pipeline Technician: You may be contacted by your local fire department for a follow up visit from a community director of religious activities. The community director of religious activities can help with a home safety check; follow up care, and general home care management. Pharmacy Information: Below is a list of 24 hour pharmacies that we are aware of. We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
[2025-02-26 16:09] LABS: Age Gdln ACOG Testing Note (.); IGP, rfx Aptima HPV ASCU Note (.)
== END 2025-02-19 20:27 | disposition home or self-care (01) ==
LOC: LAB 20:26
PROVIDERS: Visit Provider Physician Assistant
DX: Z01.419 Encounter for gynecological examination (general) (routine) without abnormal findings (principal)
CPT/HCPCS: 88175